=== PATIENT | male | born 1945 | race Hispanic/Latino ===

== ENCOUNTER 2018-02-27 10:18 | Emergency (ER) | payer MEDICARE, OTHER ==
[2018-02-27 10:28] VITALS: BMI 21.1
--- NOTE | 2018-02-27 12:06 | RAD ---
Date of service: 02/27/2018 HISTORY: AMS COMPARISON: No prior FINDINGS: LUNGS: Hyperinflated lungs. No active pulmonary disease. PLEURA: No significant pleural effusion identified, no pneumothorax apparent. CARDIOVASCULAR: Atherosclerotic aortic calcifications. Cardiomediastinal silhouette within normal limits. OSSEOUS STRUCTURES: Degenerative changes. VISUALIZED UPPER ABDOMEN: Normal. OTHER FINDINGS: None. IMPRESSION: No active disease.
[2018-02-27 12:07] LABS: BASO # 0.02 K/mm3 (0.0-2.0); BASO % 0.3 % (0.0-3.0); EOS # 0.1 (0.0-0.7); GRAN # 4.39 (1.4-6.5); GRAN % 63.5 % (50.0-68.0); HEMOGLOBIN 14.9 g/dL (14.0-18.0); LYMPH # 1.8 (1.2-3.4); LYMPH % 25.4 % (22.0-35.0); MEAN CELL VOLUME 84.7 fl (80.0-105.0); MEAN CORPUSCULAR HEMOGLOBIN 28.9 pg (25.0-35.0); MEAN CORPUSCULAR HGB CONC 34.2 g/dl (31.0-37.0); MONO # 0.7 (0.1-0.6); MONO % 9.8 % (1.0-6.0); RBC 5.15 10^6/uL (3.5-6.1); RED CELL DISTRIBUTION WIDTH 14.9 % (11.5-14.5); WHITE BLOOD COUNT 6.9 10^3/ul (4.5-11.0)
[2018-02-27 12:18] LABS: ALB/GLOB RATIO 1.3 (1.1-1.8); ALBUMIN 3.8 g/dL (3.0-4.8); ALT/SGPT 21 U/L (7-56); AST/SGOT 22 U/L (17-59); BLOOD UREA NITROGEN 13 mg/dL (7-21); CALCIUM 9.2 mg/dL (8.4-10.5); GFR NON-AFRICAN AMERICAN > 60
[2018-02-27 12:19] LABS: PH,URINE 6.5 (4.7-8.0); URINE BILIRUBIN NEGATIVE (NEGATIVE); URINE BLOOD NEGATIVE (NEGATIVE); URINE GLUCOSE (UA) NEGATIVE (NEGATIVE); URINE LEUKOCYTE ESTERASE NEGATIVE Leu/uL (NEGATIVE); URINE PROTEIN 100 mg/dL (<30 mg/dL); URINE UROBILINOGEN 0.2 E.U./dL (<1 E.U./dL)
[2018-02-27 12:23] LABS: URINE APPEARANCE CLEAR (CLEAR); URINE COLOR YELLOW (YELLOW)
[2018-02-27 12:26] LABS: URINE RBC 0 - 2 /hpf (0-2); URINE WBC 0 - 2 /hpf (0-6)
[2018-02-27 12:27] LABS: URINE BACTERIA MOD (NEG); URINE COARSE GRANULAR CAST TRACE /hpf (0-2); URINE EPITHELIAL CELLS 0 - 2 /hpf (0-5)
[2018-02-27 12:30] LABS: TROPONIN I < 0.01 ng/mL
[2018-02-27 12:35] LABS: FREE T4 0.98 ng/dL (0.78-2.19)
[2018-02-27 14:12] LABS: ACETAMINOPHEN < 10.0 ug/ml (10.0-20.0); SALICYLATE < 1 mg/dL (2.0-20.0)
--- NOTE | 2018-02-27 14:47 | ED PDOC ---
Arrival/HPI <Soto Swann - Last Filed: 02/27/18 17:02> - History of Present Illness Narrative History of Present Illness (Text): 02/27/18 14:37 Pt is a 72 yo M with pmhx of anxiety, depression and glaucoma who presents due to increased anxiety and weakness. Pt states that he had a scheduled appointment at the [facility], but when he arrived he was told the appointment had been cancelled and he could not see the dr. The pt then stopped taking all of his medications. He states that for the past week his anxiety has been continuing to grow. He states that this morning his anxiety grew to such levels that he was not able to manage it anymore and had a panic attack in which he began to hyperventilate and then feel very weak. He then informed his son to call the ambulance because he didnt feel right and felt very weak. He states that over the past week he has also felt increasingly bloated, and hasnt had a bowel movement in 5-6 days. Pt admits to fatigue, SOB, chest pain, abdominal pain, nausea, focal weakness, anxiety, and depression. He denies vision changes, photophobia, cough, palpitations, edema, calf pain, vomiting, dysuria, frequency, hematuria, back pain, dizziness, facial droop, speech changes. Pt also denies SI/HI at this time. PMHx: Anxiety, depression, glaucoma PSHx: polyp removal more than 10 yrs ago Meds: Nefazodone 200mg Qhs, Clonezepam 1mg QHS All: PCN - Hives Social: 1/2ppd smoker, denies etoh or illicit drug use Fam Hx: Denies 02/27/18 15:46 <Ted Bajwa - Last Filed: 02/27/18 19:05> - General Chief Complaint: GI Problem Time Seen by Provider: 02/27/18 10:29 Past Medical History - Infectious Disease Hx of Infectious Diseases: None - HEENT Hx Glaucoma: Yes - Psychiatric Hx Anxiety: Yes Hx Depression: Yes Hx Substance Use: No <Ted Bajwa - Last Filed: 02/27/18 19:05> Family/Social History Family/Social History: No Known Family HX Smoking Status: Light Smoker < 10 Cigarettes Daily Hx Alcohol Use: No Hx Substance Use: No <Francisco J Bajwamad - Last Filed: 02/27/18 19:05> Allergies/Home Meds <BosompemSoto - Last Filed: 02/27/18 17:02> <GarettFrancisco J tonyJean - Last Filed: 02/27/18 19:05> Allergies/Adverse Reactions: Allergies Penicillins Allergy (Verified 02/27/18 10:56) URTICARIA Review of Systems - Physician Review All systems were reviewed & negative as marked: Yes - Review of Systems Constitutional: Fatigue Eyes: absent: Vision Changes, Photophobia Respiratory: SOB. absent: Cough Cardiovascular: Chest Pain. absent: Palpitations, Edema, Calf Pain Gastrointestinal: Abdominal Pain, Nausea. absent: Vomiting Genitourinary Male: absent: Dysuria, Frequency, Hematuria Musculoskeletal: absent: Back Pain Neurological: Focal Weakness. absent: Dizziness, Speech Changes, Facial Droop Psychiatric: Anxiety, Depression. absent: Suicidal Ideation <Usman Bajwad - Last Filed: 02/27/18 19:05> Physical Exam Vital Signs Temp Pulse Resp BP Pulse Ox 02/27/18 15:08 98 F 70 19 149/83 95 02/27/18 10:28 97.6 F 64 18 149/78 98 <Bosompem,Soto - Last Filed: 02/27/18 17:02> Vital Signs Temp Pulse Resp BP Pulse Ox 02/27/18 10:28 97.6 F 64 18 149/78 98 Temperature: Afebrile Blood Pressure: Normal Pulse: Regular Respiratory Rate: Normal Appearance: Positive for: Well-Appearing, Non-Toxic, Uncomfortable Pain Distress: Mild Mental Status: Positive for: Alert and Oriented X 3 - Systems Exam Head: Present: Atraumatic, Normocephalic Pupils: Present: PERRL Extroacular Muscles: Present: EOMI Respiratory/Chest: Present: Clear to Auscultation, Good Air Exchange. No: Respiratory Distress, Accessory Muscle Use, Wheezes, Rales, Rhonchi Cardiovascular: Present: Normal S1, S2, Irregular Rhythm. No: Rub, Gallop Abdomen: Present: Normal Bowel Sounds. No: Tenderness, Distention, Peritoneal Signs Lower Extremity: Present: Edema Neurological: Present: GCS=15, CN II-XII Intact, Speech Normal Skin: Present: Warm, Dry, Normal Color. No: Rashes Psychiatric: Present: Alert, Oriented x 3, Normal Insight, Normal Concentration. No: Agitated, Suicidal Ideation, Homicidal Ideation, Delusional, Hallucinations <Usman Bajwad - Last Filed: 02/27/18 19:05> Medical Decision Making ED Course and Treatment: 02/27/18 15:17 Patient seen and evaluated by PES worker who states he has been cleared by psychiatric standpoint. Magnesium citrate ordered for patient. He is medically cleared. He is advised by psychiatry team to present his ED discharge paperwork to the mental health clinic so an earlier appointment may be obtained. Patient and family demonstrate understanding and will follow up. He is stable for discharge. - Lab Interpretations Lab Results: 02/27/18 11:56 02/27/18 11:56 Lab Results 02/27/18 11:58: Alcohol, Quantitative < 10 02/27/18 11:58: Salicylates < 1 L, Acetaminophen < 10.0 L 02/27/18 11:56: Free T4 0.98, TSH 3rd Generation 3.38 02/27/18 11:56: Sodium 139, Potassium 4.6, Chloride 108 H, Carbon Dioxide 24, Anion Gap 13, BUN 13, Creatinine 1.0, Est GFR ( Amer) > 60, Est GFR (Non- Af Amer) > 60, Random Glucose 107, Calcium 9.2, Phosphorus 3.0, Magnesium 2.4 H, Total Bilirubin 0.9, AST 22, ALT 21, Alkaline Phosphatase 89, Troponin I < 0.01, Total Protein 6.6, Albumin 3.8, Globulin 2.8, Albumin/Globulin Ratio 1.3 02/27/18 11:56: Urine Color Yellow, Urine Appearance Clear, Urine pH 6.5, Ur Specific Sprague 1.025, Urine Protein 100 H, Urine Glucose (UA) Negative, Urine Ketones Negative, Urine Blood Negative, Urine Nitrate Negative, Urine Bilirubin Negative, Urine Urobilinogen 0.2, Ur Leukocyte Esterase Negative, Urine RBC 0 - 2, Urine WBC 0 - 2, Ur Epithelial Cells 0 - 2, Urine Bacteria Mod, Coarse Granul ar Casts Trace H, Urine Other Fiber 02/27/18 11:56: WBC 6.9, RBC 5.15, Hgb 14.9, Hct 43.6, MCV 84.7, MCH 28.9, MCHC 34.2, RDW 14.9 H, Plt Count 186, MPV 12.0 H, Gran % 63.5, Lymph % (Auto) 25.4, Dane % (Auto) 9.8 H, Eos % (Auto) 1.0 L, Baso % (Auto) 0.3, Gran # 4.39, Lymph # (Auto) 1.8, Dane # (Auto) 0.7 H, Eos # (Auto) 0.1, Baso # (Auto) 0.02 - RAD Interpretation Radiology Orders: 02/27/18 10:56 CHEST PORTABLE [RAD] Stat - Medication Orders Current Medication Orders: Discontinued Medications Magnesium Citrate (Citrate Of Mag) 300 ml PO ONCE ONE Stop: 02/27/18 15:15 <Soto Swann - Last Filed: 02/27/18 17:02> ED Course and Treatment: 02/27/18 14:51 Pt is a 72 yo M with pmhx detailed above who presents to the ED for anxiety. - CBC - CMP - UA - CXR - Blood Cultures - TSH, Free T4 - EKG - mag, phos - UDS 02/27/18 14:52 - Lab Interpretations Lab Results: 02/27/18 11:56 02/27/18 11:56 Lab Results 02/27/18 11:58: Alcohol, Quantitative < 10 02/27/18 11:58: Salicylates < 1 L, Acetaminophen < 10.0 L 02/27/18 11:56: Free T4 0.98, TSH 3rd Generation 3.38 02/27/18 11:56: Sodium 139, Potassium 4.6, Chloride 108 H, Carbon Dioxide 24, Anion Gap 13, BUN 13, Creatinine 1.0, Est GFR ( Amer) > 60, Est GFR (Non- Af Amer) > 60, Random Glucose 107, Calcium 9.2, Phosphorus 3.0, Magnesium 2.4 H, Total Bilirubin 0.9, AST 22, ALT 21, Alkaline Phosphatase 89, Troponin I < 0.01, Total Protein 6.6, Albumin 3.8, Globulin 2.8, Albumin/Globulin Ratio 1.3 02/27/18 11:56: Urine Color Yellow, Urine Appearance Clear, Urine pH 6.5, Ur Specific Sprague 1.025, Urine Protein 100 H, Urine Glucose (UA) Negative, Urine Ketones Negative, Urine Blood Negative, Urine Nitrate Negative, Urine Bilirubin Negative, Urine Urobilinogen 0.2, Ur Leukocyte Esterase Negative, Urine RBC 0 - 2, Urine WBC 0 - 2, Ur Epithelial Cells 0 - 2, Urine Bacteria Mod, Coarse Granular Casts Trace H, Urine Other Fiber 02/27/18 11:56: WBC 6.9, RBC 5.15, Hgb 14.9, Hct 43.6, MCV 84.7, MCH 28.9, MCHC 34.2, RDW 14.9 H, Plt Count 186, MPV 12.0 H, Gran % 63.5, Lymph % (Auto) 25.4, Dane % (Auto) 9.8 H, Eos % (Auto) 1.0 L, Baso % (Auto) 0.3, Gran # 4.39, Lymph # (Auto) 1.8, Dane # (Auto) 0.7 H, Eos # (Auto) 0.1, Baso # (Auto) 0.02 - RAD Interpretation Radiology Orders: 02/27/18 10:56 CHEST PORTABLE [RAD] Stat <Ted Bajwa - Last Filed: 02/27/18 19:05> - PA / WEB ART DIRECTOR / Resident Statement MD/DO has reviewed & agrees with the documentation as recorded. MD/DO has examined the patient and agrees with the treatment plan. - Scribe Statement The provider has reviewed the documentation as recorded by the Scribe Patient Seen With Resident: In agreement with resident note. Patient was seen and evaluated with resident, came up with plan and treatment together. <Soto Swann - Last Filed: 02/27/18 17:02> Disposition/Present on Arrival - Present on Arrival Any Indicators Present on Arrival: No - Disposition Have Diagnosis and Disposition been Completed?: Yes Disposition Time: 15:21 Patient Plan: Discharge <Soto Swann - Last Filed: 02/27/18 17:02> - Present on Arrival Any Indicators Present on Arrival: No History of DVT/PE: No History of Uncontrolled Diabetes: No Urinary Catheter: No History of Decub. Ulcer: No History Surgical Site Infection Following: None <Ted Bajwa - Last Filed: 02/27/18 19:05> - Disposition Diagnosis: Anxiety, Constipation Disposition: HOME/ ROUTINE Condition: STABLE Discharge Instructions (ExitCare): Constipation, Adult (DC), Anxiety, Adult (DC) Prescriptions: Mineral Oil [Fleet Mineral Oil Enema 135 Ml] 133 ml RC ONCE 1 Days #1 nma Polyethylene Glycol 3350 [Miralax] 17 gm PO DAILY 1 Days #50 ml Sennosides [Senna Laxative] 8.6 mg PO DAILY 4 Days #4 tablet [place] [facility] [place] Follow up with primary Jenni Allen MD [Medical Doctor] - Follow up with primary Forms: [facility] [employer] (Malagasy)
[2018-02-27 15:10] VITALS: TEMP 98
[2018-02-27] MEDS ORDERED: Magnesium Citrate Oral SOL (300 ml) PO ONE (15:14)
[2018-02-27 15:50] LABS: BARBITURATES, UR NEGATIVE (NEGATIVE); BENZODIAZEPINES, UR NEGATIVE (NEGATIVE); OPIATES, UR NEGATIVE (NEGATIVE); PHENCYCLIDINE, UR NEGATIVE (NEGATIVE)
[2018-02-27 17:17] VITALS: BP 150/67; PULSE 77; RESP 18; O2SAT 99
--- NOTE | 2018-02-28 08:52 | CARD ---
APPROVED REPORT Date of service: 02/27/2018 EKG Measurement Heart [id number] <Conclusion> RSR Atrial bigeminy LVH by voltage
== END 2018-02-27 17:30 | disposition home or self-care (01) ==
LOC: ED 10:18
DX: F41.9 Anxiety disorder, unspecified (principal); K59.00 Constipation, unspecified; F32.9 Major depressive disorder, single episode, unspecified; H40.9 Unspecified glaucoma
CPT/HCPCS: 71045; 80053; 81001; 83735; 84100; 84439; 84443; 84484; 85025; 87040; 90791; 93005; 99284; G0480

== ENCOUNTER 2018-03-03 15:45 | Inpatient (IN) | payer MEDICARE, OTHER ==
[2018-03-03 16:47] VITALS: BMI 18.8
[2018-03-03] MEDS ORDERED: Sodium Chloride 0.9% 1,000 ML IV STA (17:56)
--- NOTE | 2018-03-03 18:11 | ED PDOC ---
Arrival/HPI - General Chief Complaint: Psychiatric Evaluation Time Seen by Provider: 03/03/18 16:27 - History of Present Illness Narrative History of Present Illness (Text): 03/03/18 18:07 72 m with hx anxiety, depression and constipation presents with chief complaint of feeling "blah" and depression. Patient reports that he was recently taken off clonazpam approx 15 days ago and has been feeling anxious. Patient reports multiple other physcial complaint including blurred/double vision without ac creek vision loss, no headache, no chest pain, no dyspnea, no current abdominal pain but recent bout of constipation, no dysuria, +anxiousness, +fatigue, +decreased sleep, +loss of appetite. As per the son, the patient evaluated the patient's room and the patient appears to live in poor condition where the room is covered in thick layer of "dust" and today, the patient wsa "bouncing off the jacobs". Patient denies any convulsions. PMHx: Anxiety PSHx: none SocHx: +current smoker, denies alcohol, denies nonsprescribed drugs FHx: denies Allergies: nkda 03/03/18 18:12 Past Medical History - Infectious Disease Hx of Infectious Diseases: None - Cardiac Hx Cardiac Disorders: No Hx Hypertension: No - Pulmonary Hx Tuberculosis: No - Neurological HX Cerebrovascular Accident: No Hx Seizures: No - HEENT Hx Glaucoma: Yes - Hematological/Oncological Hx Cancer: No - Genitourinary/Gynecological Hx Sexually Transmitted Diseases: No - Psychiatric Hx Anxiety: Yes Hx Depression: Yes Hx Substance Use: No Family/Social History Family/Social History: No Known Family HX Smoking Status: Light Smoker < 10 Cigarettes Daily Hx Alcohol Use: No Hx Substance Use: No Allergies/Home Meds Allergies/Adverse Reactions: Allergies Penicillins Allergy (Verified 03/03/18 23:41) URTICARIA Home Medications: Home Meds Medication Instructions Recorded Confirmed Nefazodone HCl 200 mg PO HS 03/03/18 03/03/18 clonazePAM [clonAZEPAM] 1 mg PO HS 03/03/18 03/03/18 Review of Systems - Physician Review All systems were reviewed & negative as marked: Yes - Review of Systems Neurological: absent: Headache Psychiatric: Depression Physical Exam - Physical Exam Narrative Physical Exam (Text): 03/03/18 18:13 Gen: VS reviewed, alert, well developed, well nourished, nontoxic, mild distress ENT: normal pharynx Eye: EOMI, PERRL Neck: no JVD, supple, no adenopathy CV: regular rate, regular rhythm, no rubs,no murmur, no gallops, S1, S2, pulses equal and strong Pulm: no distress, clear to auscultation, no wheeze, no rhonchi, breath sounds equal, no rales Abd: soft, nontender, no guarding, no rebound, no rigidity, normal bowel sounds Ext: no edema Skin: good color, no rash, no cyanosis Psych: responds appropriately to questions, normal affect Neuro: oriented x3, CN2-12 intact grossly, motor intact, sensation intact Vital Signs Temp Pulse Resp BP Pulse Ox 03/03/18 17:12 98.1 F 78 18 132/80 98 Medical Decision Making ED Course and Treatment: 03/03/18 18:13 patient presents with anxiety and depression after recently stopping clonazepam. there appears to be a disconnect between the patients prescribing physician and why the patient could not get refill of medication-son reports that the doctor refused to refill unless seeing the patient in person. 03/03/18 19:08 ekg discussed and personally reviewed by dr. weiss, cardiology environmental technician, states that the ekg is benign and not consistent with a serioud arrythmia-ekg presumed to be wenckeback 03/03/18 19:58 patient seen by PES and has been accepted for admission under service of dr. aguero with drug withdrawal 03/03/18 22:10 patient is medically stable for psychiatric admission. Ct result discussed with dr. aguero and based on the patient's current presentation it is understood that the findings on CT are most likely chronic. Patient will be consulted by neurology for further evaluation. At this time the patient does not exhibit acute neuro deficits. - RAD Interpretation Narrative RAD Interpretations (Text): 03/03/18 19:59 cxr my read: no focal infiltrate, no ptx, no cardiomegaly Fuel System Maintenance Worker: ED Physician - EKG Interpretation EKG Interpretation (Text): 03/03/18 19:18 1701 ekg my read: sinus rhythm at 67 bpm, frequent atrial ectopy, ?block Interpreted by ED Physician: Yes - Medication Orders Current Medication Orders: Sodium Chloride (Sodium Chloride 0.9%) 1,000 mls @ 999 mls/hr IV .Q1H1M STA Stop: 03/03/18 18:56 Disposition/Present on Arrival - Present on Arrival Any Indicators Present on Arrival: No History of DVT/PE: No History of Uncontrolled Diabetes: No Urinary Catheter: No History of Decub. Ulcer: No History Surgical Site Infection Following: None - Disposition Have Diagnosis and Disposition been Completed?: Yes Diagnosis: Drug withdrawal Disposition: HOSPITALIZED Disposition Time: 21:33 Patient Plan: Admission Patient Problems: Current Active Problems Problem Status Onset Anxiety disorder, unspecified Acute Drug withdrawal Acute Mood disorder Acute Condition: STABLE
[2018-03-03 18:17] LABS: BASO # 0.01 K/mm3 (0.0-2.0); BASO % 0.1 % (0.0-3.0); EOS # 0.1 (0.0-0.7); GRAN # 5.67 (1.4-6.5); GRAN % 61.5 % (50.0-68.0); HEMOGLOBIN 15.8 g/dL (14.0-18.0); LYMPH # 2.3 (1.2-3.4); LYMPH % 24.9 % (22.0-35.0); MEAN CORPUSCULAR HEMOGLOBIN 29.6 pg (25.0-35.0); MEAN CORPUSCULAR HGB CONC 34.8 g/dl (31.0-37.0); MEAN PLATELET VOLUME 12.7 fl (7.0-11.0); MONO # 1.2 (0.1-0.6); MONO % 12.5 % (1.0-6.0); RBC 5.34 10^6/uL (3.5-6.1); RED CELL DISTRIBUTION WIDTH 14.9 % (11.5-14.5); WHITE BLOOD COUNT 9.2 10^3/ul (4.5-11.0)
[2018-03-03 18:29] LABS: ALB/GLOB RATIO 1.4 (1.1-1.8); ALT/SGPT 21 U/L (7-56); AST/SGOT 38 U/L (17-59); BLOOD UREA NITROGEN 22 mg/dL (7-21); CALCIUM 9.2 mg/dL (8.4-10.5); GFR NON-AFRICAN AMERICAN 54
[2018-03-03 20:10] LABS: URINE BILIRUBIN SMALL (NEGATIVE); URINE BLOOD NEGATIVE (NEGATIVE); URINE GLUCOSE (UA) NEGATIVE (NEGATIVE); URINE LEUKOCYTE ESTERASE NEGATIVE Leu/uL (NEGATIVE); URINE PROTEIN NEGATIVE mg/dL (<30 mg/dL); URINE UROBILINOGEN 0.2 E.U./dL (<1 E.U./dL)
[2018-03-03 20:11] LABS: URINE APPEARANCE CLEAR (CLEAR); URINE COLOR LIGHT YELLOW (YELLOW)
[2018-03-03 20:34] LABS: BARBITURATES, UR NEGATIVE (NEGATIVE); BENZODIAZEPINES, UR NEGATIVE (NEGATIVE); OPIATES, UR NEGATIVE (NEGATIVE); PHENCYCLIDINE, UR NEGATIVE (NEGATIVE)
--- NOTE | 2018-03-03 21:11 | CARD ---
APPROVED REPORT Date of service: 03/03/2018 EKG Measurement Heart [id number] <Conclusion> Sinus rhythm with frequent premature atrial complexes Abnormal ECG
[2018-03-03] MEDS ORDERED: Alum-Mag Hydrox-Simethicone Susp (30 mL) PO PRN (21:54)
[2018-03-03 21:55] VITALS: O2SAT 95
--- NOTE | 2018-03-03 23:49 | PCM.BM ---
<Bing Roman - Last Filed: 03/03/18 23:46> Treatment Plan Problems - Problems identified on initial assessmt SEVERE ANXIETY Date Initiated: 03/03/18 Time Initiated: 23:00 Assessment reference: NA Status: Active Priority: 1 INEFFECTIVWE COPING Date Initiated: 03/03/18 Time Initiated: 23:00 Assessment reference: NA Status: Active Priority: 2 MEDICATION NON ADHERENCE Date Initiated: 03/03/18 Time Initiated: 23:00 Assessment reference: NA Status: Active Priority: 3 Treatment assets and liabiliti Patient Assests: cooperative, self-reliant, ADL independent, good support system, negotiates basic needs, good past tx response, cognitively intact Patient Liabilities: financial problems, relationship conflicts, medical problems, visual impairment - Milieu Protocol Maintain good personal hygiene: daily Encourage regular showers, every shift Remind patient to perform daily oral care, every shift Assist patient to perform ADL's Maintain personal safety: every shift Educate patient to report safety concerns to staff, every shift Monitor environment for contraband/sharps Medication safety: Monitor for expected outcome, potential side effects: every shift, Assess barriers to learning: every shift, Assess readiness for medication education: every shift Family Contact Family involvement: Family/SO is involved Family contact: Patient agrees to contact Discharge/Continuing Care - Education Needs Education Needs: Patient Medication, Patient Diagnosis/Disease Process, Patient Coping Skills, Patient Anger Management skills, Patient Activities of Daily Living, Patient Health Practices/Safety - Discharge Discharge Criteria: Tolerates medication w/o severe side effects, Free of agitation, Normal sleep pattern, Ability to care for self <Jayne Nelson A - Last Filed: 03/04/18 15:43> - Diagnosis (1) Mood disorder Status: Acute Interventions: 03/04/18 15:43 Psychoeducation Psychopharmacology/adjustment of medications as needed/ monitoring possible side effects Evaluate pt on daily basis Compliance with medications and follow up appointments Suicide and homicide risk assessment and prevention Relapse prevention Reduction of symptoms Improve functional status Family involvement As outpatient: cognitive behavioral therapy (2) Anxiety disorder, unspecified Status: Acute Interventions: 03/04/18 15:43 Psychoeducation Psychopharmacology/adjustment of medications as needed/ monitoring possible side effects Evaluate pt on daily basis Discussion of importance of being compliant with medications and follow up appointments Suicide and homicide risk assessment and prevention, coping strategies, safety plan Reduction of symptoms Relaxation techniques and breathing exercises Improve functional status Family involvement Cognitive behavioral therapy as outpatient <Jenni Moore Y - Last Filed: 03/04/18 16:46> Family Contact - Outside Agency [facility] Care involvment: Not involved Agency contact name: [facility] Agency contact number: [phone]
[2018-03-04 07:59] LABS: GLUCOSE,FASTING 76 mg/dL (65-110); HDL CHOLESTEROL 37 mg/dL (29-60)
[2018-03-04 08:10] LABS: LDL CHOLESTEROL 89 mg/dL (0-129)
--- NOTE | 2018-03-04 08:11 | CP.PCM.CON ---
<JohnnyRajwinder - Last Filed: 03/04/18 11:24> History of Present Illness - History of Present Illness History of Present Illness: Medicine Consult Note for Jennifer Caldwell PGY3 This is a 72yo male with past medical history of anxiety/depression and glaucoma who came to ED for depression. He was taking Clonazapam at home which was recently discontinued. Since then his mood has not improved. Patient otherwise reports feeling well. He denies chest pain, shortness of breath, naus ea/vomiting/diarrhea, vision changes, palpitations, visual/auditory hallucinations, suicidal or homicidal ideations. He states his PMD is Dr. Julien, but he has not seen her in "a while". Past medical history: anxiety/depression, glaucoma Past surgical history: Denies Home meds: Reviewed as per MAR Allergies: PCN- rash (as as child) Social history: smokes 1/2 ppd x >30yrs, denies EtOH or drug use. Lives with son and roommate Family history: Mom ( age 54) from cardiac arrest from [place] - Father ( at young age) from tuberculosis PMD: Dr. Julien Review of Systems - Review of Systems All systems: reviewed and no additional remarkable complaints except Review of Systems: 12 point ROS reviewed as per HPI and is otherwise negative Past Patient History - Infectious Disease Hx of Infectious Diseases: None - Past Social History Smoking Status: Light Smoker < 10 Cigarettes Daily - CARDIAC Hx Cardiac Disorders: No Hx Hypertension: No - PULMONARY Hx Respiratory Disorders: No Hx Tuberculosis: No - NEUROLOGICAL HX Cerebrovascular Accident: No Hx Seizures: No - HEENT Hx HEENT Problems: No Hx Glaucoma: Yes - RENAL Hx Chronic Kidney Disease: No - ENDOCRINE/METABOLIC Hx Endocrine Disorders: No - HEMATOLOGICAL/ONCOLOGICAL Hx Blood Disorders: No Hx Cancer: No - INTEGUMENTARY Hx Dermatological Problems: No - MUSCULOSKELETAL/RHEUMATOLOGICAL Hx Musculoskeletal Disorders: No - GASTROINTESTINAL Hx Gastrointestinal Disorders: No - GENITOURINARY/GYNECOLOGICAL Hx Genitourinary Disorders: No Hx Sexually Transmitted Disorders: No - PSYCHIATRIC Hx Substance Use: No - SURGICAL HISTORY Hx Surgeries: No - ANESTHESIA Hx Anesthesia: No Meds Allergies/Adverse Reactions: Allergies Allergy/AdvReac Type Severity Reaction Status Date / Time Penicillins Allergy URTICARIA Verified 03/03/18 23:41 - Medications Medications: Current Medications Acetaminophen (Tylenol 325mg Tab) 650 mg PO Q4H PRN PRN Reason: Pain, Mild (1-3) Al Hydrox/Mg Hydrox/Simethicone (Maalox Plus 30 Ml) 30 ml PO DAILY PRN PRN Reason: Upset Stomach Clonazepam (Klonopin) 0.5 mg PO Q8H PRN; Protocol PRN Reason: Anxiety Last Admin: 03/04/18 02:38 Dose: 0.5 mg Lorazepam (Ativan) 2 mg PO Q6H PRN; Protocol PRN Reason: Agitation Last Admin: 03/03/18 22:41 Dose: 2 mg Lorazepam (Ativan) 2 mg IM Q6H PRN; Protocol PRN Reason: Agitation Trazodone HCl (Desyrel) 50 mg PO HS PRN PRN Reason: Sleep Last Admin: 03/03/18 22:41 Dose: 50 mg Ziprasidone (Geodon Cap) 20 mg PO Q6H PRN; Protocol PRN Reason: Agitation Ziprasidone (Geodon Inj) 20 mg IM Q6H PRN; Protocol PRN Reason: Agitation Physical Exam - Constitutional Appears: No Acute Distress - Head Exam Head Exam: ATRAUMATIC, NORMAL INSPECTION, NORMOCEPHALIC - Eye Exam Eye Exam: Normal appearance, PERRL Pupil Exam: NORMAL ACCOMODATION, PERRL - ENT Exam ENT Exam: Mucous Membranes Moist - Respiratory Exam Respiratory Exam: Clear to Auscultation Bilateral, NORMAL BREATHING PATTERN. absent: Rales, Rhonchi, Wheezes - Cardiovascular Exam Cardiovascular Exam: REGULAR RHYTHM, +S1, +S2. absent: Gallop, Rubs, Systolic Murmur - GI/Abdominal Exam GI & Abdominal Exam: Normal Bowel Sounds, Soft. absent: Rebound, Rigid, Tenderness - Extremities Exam Extremities exam: Positive for: normal capillary refill, normal inspection. Negative for: calf tenderness, pedal edema - Neurological Exam Neurological exam: Alert, CN II-XII Intact, Oriented x3 - Psychiatric Exam Psychiatric exam: Normal Affect, Normal Mood - Skin Skin Exam: Dry, Intact, Warm Results - Vital Signs Recent Vital Signs: Last Vital Signs Temp 98.2 F 03/04/18 07:19 Pulse 64 03/04/18 07:19 Resp 20 03/04/18 07:19 BP 115/47 L 03/04/18 07:19 Pulse Ox 95 03/03/18 21:54 - Labs Result Diagrams: 03/03/18 18:06 03/03/18 18:00 Labs: Laboratory Results - last 24 hr 03/03/18 03/03/18 03/03/18 17:55 18:00 18:06 WBC 9.2 D RBC 5.34 Hgb 15.8 Hct 45.4 MCV 85.0 MCH 29.6 MCHC 34.8 RDW 14.9 H Plt Count 203 MPV 12.7 H Gran % 61.5 Lymph % (Auto) 24.9 [place] % (Auto) 12.5 H Eos % (Auto) 1.0 L Baso % (Auto) 0.1 Gran # 5.67 Lymph # (Auto) 2.3 [place] # (Auto) 1.2 H Eos # (Auto) 0.1 Baso # (Auto) 0.01 Sodium 138 Potassium 5.0 Chloride 102 Carbon Dioxide 25 Anion Gap 16 BUN 22 H Creatinine 1.3 Est GFR ( Amer) > 60 Est GFR (Non-Af Amer) 54 Random Glucose 86 Fasting Glucose Calcium 9.2 Magnesium 2.4 H Total Bilirubin 0.7 AST 38 ALT 21 Alkaline Phosphatase 77 Total Protein 6.9 Albumin 4.0 Globulin 2.9 Albumin/Globulin Ratio 1.4 Triglycerides Cholesterol LDL Cholesterol Direct HDL Cholesterol TSH 3rd Generation 3.63 Urine Color Urine Appearance Urine pH Ur Specific [place] Urine Protein Urine Glucose (UA) Urine Ketones Urine Blood Urine Nitrate Urine Bilirubin Urine Urobilinogen Ur Leukocyte Esterase Urine Opiates Screen Urine Methadone Screen Ur Barbiturates Screen Ur Phencyclidine Scrn Ur Amphetamines Screen U Benzodiazepines Scrn U Oth Cocaine Metabols U Cannabinoids Screen Alcohol, Quantitative < 10 03/03/18 03/03/18 03/04/18 19:52 19:52 07:15 WBC RBC Hgb Hct MCV MCH MCHC RDW Plt Count MPV Gran % Lymph % (Auto) [place] % (Auto) Eos % (Auto) Baso % (Auto) Gran # Lymph # (Auto) [place] # (Auto) Eos # (Auto) Baso # (Auto) Sodium Potassium Chloride Carbon Dioxide Anion Gap BUN Creatinine Est GFR ( Amer) Est GFR (Non-Af Amer) Random Glucose Fasting Glucose 76 Calcium Magnesium Total Bilirubin AST ALT Alkaline Phosphatase Total Protein Albumin Globulin Albumin/Globulin Ratio Triglycerides 75 Cholesterol 151 LDL Cholesterol Direct 89 HDL Cholesterol 37 TSH 3rd Generation Urine Color Light yellow Urine Appearance Clear Urine pH 6.0 Ur Specific [place] 1.015 Urine Protein Negative Urine Glucose (UA) Negative Urine Ketones 15 H Urine Blood Negative Urine Nitrate Negative Urine Bilirubin Small H Urine Urobilinogen 0.2 Ur Leukocyte Esterase Negative Urine Opiates Screen Negative Urine Methadone Screen Negative Ur Barbiturates Screen Negative Ur Phencyclidine Scrn Negative Ur Amphetamines Screen Negative U Benzodiazepines Scrn Negative U Oth Cocaine Metabols Negative U Cannabinoids Screen Negative Alcohol, Quantitative Assessment & Plan - Assessment and Plan (Free Text) Assessment: 1. Glaucoma 2. Anxiety 3. Depression Plan: Labs reviewed. Patient is hemodynamically stable. As per patient, son will bring in glaucoma eye drops to hospital. We will continue eye drops. Continue Trazodone, Ativan, Klonopin and Geodon as per psych. Recommend patient to follow up with PMD, Dr. Julien for check up upon discharge. Thank you for this consultation. Will sign off at this time. Please contact if need further recommendations. Case seen, discussed and reviewed with Dr. Corinne Turner PGY3 - Date & Time Date: 03/04/18 Time: 11:33 <Tal Sun S - Last Filed: 03/10/18 20:25> Meds - Medications Medications: Current Medications Acetaminophen (Tylenol 325mg Tab) 650 mg PO Q4H PRN PRN Reason: Pain, Mild (1-3) Al Hydrox/Mg Hydrox/Simethicone (Maalox Plus 30 Ml) 30 ml PO DAILY PRN PRN Reason: Upset Stomach Clonazepam (Klonopin) 0.5 mg PO Q8H [facility]; Protocol Last Admin: 03/10/18 12:41 Dose: 0.5 mg Docusate Sodium (Colace) 100 mg PO BID [facility] Last Admin: 03/10/18 16:47 Dose: 100 mg Home Med (Home Med) 1 unit OU Q12H RAMÍREZ Last Admin: 03/10/18 09:58 Dose: 1 unit Lactulose (Enulose) 20 gm PO HS RAMÍREZ Lorazepam (Ativan) 2 mg PO Q6H PRN; Protocol PRN Reason: Agitation Last Admin: 03/08/18 09:43 Dose: 2 mg Lorazepam (Ativan) 2 mg IM Q6H PRN; Protocol PRN Reason: Agitation Trazodone HCl (Desyrel) 100 mg PO HS RAMÍREZ Last Admin: 03/09/18 22:19 Dose: 100 mg Zaleplon (Sonata) 5 mg PO HS PRN PRN Reason: Insomnia Ziprasidone (Geodon Cap) 20 mg PO Q6H PRN; Protocol PRN Reason: Agitation Ziprasidone (Geodon Inj) 20 mg IM Q6H PRN; Protocol PRN Reason: Agitation Results - Vital Signs Recent Vital Signs: Last Vital Signs Temp 98.5 F 03/10/18 07:00 Pulse 91 H 03/10/18 15:00 Resp 18 03/10/18 07:00 BP 143/80 03/10/18 15:00 Pulse Ox 95 03/03/18 21:54 - Labs Result Diagrams: 03/03/18 18:06 03/03/18 18:00 Assessment & Plan - Assessment and Plan (Free Text) Plan: Pt seen and examined by me. This is a late entry.I have reviewed the note by the medical social worker. The case was discussed and reviewed with the resident. I reviewed the medications and labs. Pt with Glaucoma. Will need to continue with eye drops. Pt is on Ativan and Klonoin by psych. No active medical issues. Will sign off. Reconsult if needed.
--- NOTE | 2018-03-04 08:50 | RAD ---
Date of service: 03/03/2018 HISTORY: pneumonia COMPARISON: 02/27/2018. FINDINGS: LUNGS: No active pulmonary disease. PLEURA: No significant pleural effusion identified, no pneumothorax apparent. CARDIOVASCULAR: No radiographic findings to suggest acute or significant cardiovascular disease. OSSEOUS STRUCTURES: No significant abnormalities. VISUALIZED UPPER ABDOMEN: Normal. OTHER FINDINGS: None. IMPRESSION: No active disease. Grow change
--- NOTE | 2018-03-04 09:13 | CT ---
Date of service: 03/03/2018 PROCEDURE: CT HEAD WITHOUT CONTRAST. HISTORY: visual disurbance COMPARISON: None available. TECHNIQUE: Axial computed tomography images were obtained through the head/brain without intravenous contrast. Radiation dose: Total exam DLP = 1036 mGy-cm. This CT exam was performed using one or more of the following dose reduction techniques: Automated exposure control, adjustment of the mA and/or kV according to patient size, and/or use of iterative reconstruction technique. FINDINGS: HEMORRHAGE: No intracranial hemorrhage. BRAIN: No mass effect or edema. Chronic appearing lacunar infarcts are seen in the basal ganglia bilaterally. VENTRICLES: Unremarkable. No hydrocephalus. CALVARIUM: Unremarkable. PARANASAL SINUSES: Unremarkable as visualized. No significant inflammatory changes. MASTOID AIR CELLS: Unremarkable as visualized. No inflammatory changes. OTHER FINDINGS: The report concurs with the preliminary report IMPRESSION: No acute findings
--- NOTE | 2018-03-04 15:42 | PCM.PSYCH ---
Initial Psychiatric Evaluation - Initial Psychiatric Evaluation Type of Admission: Voluntary Legal Status: Capacity (patient has capacity to sign consent for treatment) Chief Complaint (in patient's own words): "I was not feeling well, I was not sleeping for 1 week, I was not eating, I thought that is better to , I was praying God to take me" Patient's Reaction to Hospitalization: patient was admitted to the psychiatric inpatient unit for evaluation of depressive symptoms, inability to function, uncontrolled anxiety, passive wish to be . History of Present Illness and Precipitating Events: shortly patient is 72year old male with reported hx anxiety, depression possible PTSD, [facility], patient denied history of previous psychiatric admissions, denied history of suicidal attempts, patient was brought in by his son for evaluation of worsening of depression, uncontrolled anxiety, patient missed 2 appointments With his psychiatrist, as a result patient karly short on benzodiazepines as well as Nefazodone, pt was feeling depressed, hopeless, helpless, was not able to sleep, lost appetite, had passive wish to be . pt was seen at the treatment team meeting, patient presented with marginal personal hygiene, acceptable ADLs. Patient reported that he had traumatic event at his job and he suffered from PTSD for what patient was seen by Dr. Gurinder gonsales need years ago, patient currently [facility], patient reported that he missed his 2 appointments with his psychiatrist and when he came for medicat ion refill patient was rejected and next appointment was scheduled sometime in April, patient said "I was feeling very angry I stopped taking medications, she had only 4 left", as a result for past week patient was not able to function, reported that he lost weight,not able to stay still, had shakiness of his upper extremities, was not able to sleep, patient reported that he had suicidal wish but denied any plan or intent to kill himself. patient denied hearing voices, denied seeing things, denied paranoid ideations. Patient reported mild improvement with his symptoms after Klonopin and trazodone was initiated. Collaterals were obtained from patient's son in the emergency room:"As per the son, the patient evaluated the patient's room and the patient appears to live in poor condition where the room is covered in thick layer of "dust" and today, the patient wsa "bouncing off the jacobs". Patient denies any convulsions." SocHx: +current smoker, denies alcohol, denies nonsprescribed drugs, nicotine patch offered, but pt refused. FHx: denies Allergies: nkda Patient reports he started seeing a psychiatrist about 20 years ago after he had an industrial accident in which he was almost crushed by a palate while he was working, resulting in patient having PTSD symptoms. PT currently denies having any flashbacks. PT reports using [facility]. medication list: Klonopin 1 mg at the nighttime #7 patient filled in February 12 Serzone 200 mg at the nighttime #7 filled in February 12 MiraLAX viktor medical history: atient reported being healthy, but patient has history of constipation. as per nursing report patient initially was angry, mildly agitated, but calm do wn overnight. 03/03/18 18:06 03/03/18 18:00 Lab Results 03/04/18 07:15: Fasting Glucose 76, Triglycerides 75, Cholesterol 151, LDL Cholesterol Direct 89, HDL Cholesterol 37 03/03/18 19:52: Urine Color Light yellow, Urine Appearance Clear, Urine pH 6.0, Ur Specific [place] 1.015, Urine Protein Negative, Urine Glucose (UA) Negative, Urine Ketones 15 H, Urine Blood Negative, Urine Nitrate Negative, Urine Bilirubin Small H, Urine Urobilinogen 0.2, Ur Leukocyte Esterase Negative 03/03/18 19:52: Urine Opiates Screen Negative, Urine Methadone Screen Negative, Ur Barbiturates Screen Negative, Ur Phencyclidine Scrn Negative, Ur Amphetamines Screen Negative, U Benzodiazepines Scrn Negative, U Oth Cocaine Metabols Negative, U Cannabinoids Screen Negative 03/03/18 18:06: WBC 9.2 D, RBC 5.34, Hgb 15.8, Hct 45.4, MCV 85.0, MCH 29.6, MCHC 34.8, RDW 14.9 H, Plt Count 203, MPV 12.7 H, Gran % 61.5, Lymph % (Auto) 24.9, [place] % (Auto) 12.5 H, Eos % (Auto) 1.0 L, Baso % (Auto) 0.1, Gran # 5.67, Lymph # (Auto) 2.3, [place] # (Auto) 1.2 H, Eos # (Auto) 0.1, Baso # (Auto) 0.01 03/03/18 18:00: Sodium 138, Potassium 5.0, Chloride 102, Carbon Dioxide 25, Anion Gap 16, BUN 22 H, Creatinine 1.3, Est GFR ( Amer) > 60, Est GFR (Non-Af Amer) 54, Random Glucose 86, Calcium 9.2, Magnesium 2.4 H, Total Bilirubin 0.7, AST 38, ALT 21, Alkaline Phosphatase 77, Total Protein 6.9, Albumin 4.0, Globulin 2.9, Albumin/Globulin Ratio 1.4 03/03/18 17:55: TSH 3rd Generation 3.63, Alcohol, Quantitative < 10 Vital Signs Temp Pulse Resp BP Pulse Ox 03/04/18 07:19 98.2 F 64 20 115/47 L 03/03/18 22:57 97.5 F L 56 L 20 131/72 03/03/18 21:54 98.7 F 74 16 110/62 95 03/03/18 17:12 98.1 F 78 18 132/80 98 in ED: ekg changes as per , discussed with , cardiology collection agent, states that the ekg is benign and not consistent with a serioud arrythmia-ekg presumed to be wenckeback As per ED attending , recommended Neurology consult for findings on CT which most likely chronic. Current Medications: Active Medications Generic Name Dose Route Start Last Admin Trade Name Freq PRN Reason Stop Dose Admin Acetaminophen 650 mg 03/03/18 21:54 Tylenol 325mg Tab PO Q4H PRN Pain, Mild (1-3) Al Hydrox/Mg Hydrox/Simethicone 30 ml 03/03/18 21:54 Maalox Plus 30 Ml PO DAILY PRN Upset Stomach Clonazepam 0.5 mg 03/03/18 21:53 03/04/18 02:38 Klonopin PO 0.5 mg Q8H PRN Administration Anxiety Protocol Lorazepam 2 mg 03/03/18 21:54 03/03/18 22:41 Ativan PO 2 mg Q6H PRN Administration Agitation Protocol Lorazepam 2 mg 03/03/18 21:56 Ativan IM Q6H PRN Agitation Protocol Trazodone HCl 50 mg 03/03/18 21:53 03/03/18 22:41 Desyrel PO 50 mg HS PRN Administration Sleep Ziprasidone 20 mg 03/03/18 21:57 Geodon Cap PO Q6H PRN Agitation Protocol Ziprasidone 20 mg 03/03/18 21:59 Geodon Inj IM Q6H PRN Agitation Protocol Past Psychiatric History - Past Psychiatric History Previous Treatment History: Intensive Outpatient Prior Professional Help: outpatient treatment Prior Psychiatric Treatment: as per HPI At [facility] hospital: as per HPI Duration: as per HPI Nature of Treatment: as per HPI Explanation of prior treatment: as per HPI History of Abuse: as per HPI History of ETOH/Drug Use: as per HPI History of Family Illness: as per HPI Pertinent Medical Hx (Current Medical&Sleep Prob, Allergies): Allergies Allergy/AdvReac Type Severity Reaction Status Date / Time Penicillins Allergy URTICARIA Verified 03/03/18 23:41 Nefazodone HCl 200 mg PO HS 03/03/18 clonazePAM [clonAZEPAM] 1 mg PO HS 03/03/18 Review of Systems - Review of Systems Systems not reviewed;Unavailable: Acuity of Condition - EENT Eyes: As Per HPI Ears: As Per HPI Nose/Mouth/Throat: As Per HPI - Cardiovascular Cardiovascular: As Per HPI - Respiratory Respiratory: As Per HPI - Gastrointestinal Gastrointestinal: As Per HPI - Genitourinary Genitourinary: As Per HPI - Reproductive: Male Reproductive:Male: As Per HPI - Musculoskeletal Musculoskeletal: As Par HPI - Integumentary Integumentary: As Per HPI - Neurological Neurological: As Per HPI - Psychiatric Psychiatric: As Per HPI - Endocrine Endocrine: As Per HPI - Hematologic/Lymphatic Hematologic: As Per HPI Mental Status Examination - Personal Presentation Personal Presentation: Looks stated age - Affect Affect: Constricted, Flat - Motor Activity Motor Activity: Calm - Reliability in Providing Information Reliability in Providing Information: Fair - Speech Speech: Organized - Mood Mood: Depressed, Anxious - Formal Thought Process Formal Thought Process: No Impairment - Obsessions/Compulsions Obsessions: None Compulsions: None - Cognitive Functions Orientation: Person, Place, Situation, Time Sensorium: Alert Attention/Concentration: Attentive Estimate of Intelligence: Average Judgement: Intact, as evidence by: Insight regarding need for hospitalization - Risk Risk: Withdrawal, Self-mutilation, Diminished functioning - Strength & Assets Inventory Strength & Assets Inventory: Family support (good physical health, no substance abuse), Cooperative - Limitations Limitations: Other (seriousness of the symtoms) DSM 5 DX - DSM 5 DSM 5 Diagnosis: mood disorder nos r/o ptsd r/o withdrawals from the meds - Recommended/Plan of Treatment Treatment Recommendations and Plan of Treatment: Milieu/structure/supportive therapy Medical consult will be called neurology consultation was also called consultation for discharge plan and social issues Med management Klonopin was resumed 0.5 mg 3 times a day as needed for anxiety trazodone was discontinued Trazodone 50 mg at the nighttime for depression and insomnia Family involvement Follow up on labs Will monitor closely Pt was educated about risk/benefits and alternatives of medications, coping strategies (safety plan, suicide prevention), relapse prevention, importance of follow up with psychiatrist and therapist, stay away from drugs/alcohol/smoking Projected ELOS: 7days Prognosis: fair Discharge Plan and Discharge Criteria: Pt will be not depressed or manic, will be more hopeful, will be not psychotic or anxious, will be not having thoughts of harming self or others, will be tolerating medications well, will not have major side effects, will be able to function, will not pose threat to self or others. - Smoking Cessation Smoking Cessation Initiated: No Reason for not providing: pt refused
[2018-03-04] MEDS: TIMOLOL MALEATE OU SCH (21:45)
[2018-03-04] MEDS: DORZOLAMIDE HCL OU SCH (21:45)
[2018-03-05] MEDS: TIMOLOL MALEATE OU SCH ×2 (10:18→22:22)
[2018-03-05] MEDS: DORZOLAMIDE HCL OU SCH ×2 (10:18→22:22)
--- NOTE | 2018-03-05 16:11 | PCM.PYCHPN ---
Psychiatric Progress Note - Psychiatric Progress Note Patient seen today, length of contact: 30 minutes Patient Chief Complaint: "I feel little better, I'm not there yet" Problems Identified/Issues Discussed: Suicide/ homicide prevention, past psychiatric h/o, current psychiatric symptoms, medical problems, risk/benefits and alternatives of medications, medications compliance, coping strategies, substance abuse h/o, relapse prevention, importance of follow up with psychiatrist and therapist, discharge plan. Medical Problems: as per HPI Diagnostic Results: 03/03/18 18:06 03/03/18 18:00 Lab Results 03/04/18 07:15: Fasting Glucose 76, Triglycerides 75, Cholesterol 151, LDL Cholesterol Direct 89, HDL Cholesterol 37 03/04/18 07:00: RPR Nonreactive 03/03/18 19:52: Urine Color Light yellow, Urine Appearance Clear, Urine pH 6.0, Ur Specific [place] 1.015, Urine Protein Negative, Urine Glucose (UA) Negative, Urine Ketones 15 H, Urine Blood Negative, Urine Nitrate Negative, Urine Bilirubin Small H, Urine Urobilinogen 0.2, Ur Leukocyte Esterase Negative 03/03/18 19:52: Urine Opiates Screen Negative, Urine Methadone Screen Negative, Ur Barbiturates Screen Negative, Ur Phencyclidine Scrn Negative, Ur Amphetamines Screen Negative, U Benzodiazepines Scrn Negative, U Oth Cocaine Metabols Negative, U Cannabinoids Screen Negative 03/03/18 18:06: WBC 9.2 D, RBC 5.34, Hgb 15.8, Hct 45.4, MCV 85.0, MCH 29.6, MCHC 34.8, RDW 14.9 H, Plt Count 203, MPV 12.7 H, Gran % 61.5, Lymph % (Auto) 24.9, [place] % (Auto) 12.5 H, Eos % (Auto) 1.0 L, Baso % (Auto) 0.1, Gran # 5.67, Lymph # (Auto) 2.3, [place] # (Auto) 1.2 H, Eos # (Auto) 0.1, Baso # (Auto) 0.01 03/03/18 18:00: Sodium 138, Potassium 5.0, Chloride 102, Carbon Dioxide 25, Anion Gap 16, BUN 22 H, Creatinine 1.3, Est GFR ( Amer) > 60, Est GFR (Non-Af Amer) 54, Random Glucose 86, Calcium 9.2, Magnesium 2.4 H, Total Bilirubin 0.7, AST 38, ALT 21, Alkaline Phosphatase 77, Total Protein 6.9, Albumin 4.0, Globulin 2.9, Albumin/Globulin Ratio 1.4 03/03/18 17:55: TSH 3rd Generation 3.63, Alcohol, Quantitative < 10 Vital Signs Temp Pulse Resp BP Pulse Ox 03/05/18 07:12 98.1 F 82 20 119/75 03/04/18 16:00 86 110/56 L 03/04/18 07:19 98.2 F 64 20 115/47 L 03/03/18 22:57 97.5 F L 56 L 20 131/72 03/03/18 21:54 98.7 F 74 16 110/62 95 03/03/18 17:12 98.1 F 78 18 132/80 98 DSM 5 Symptoms Update: shortly patient is 72year old male with reported hx anxiety, depression possible PTSD, currently is under care or [facility], patient denied history of previous psychiatric admissions, denied history of suicidal attempts, patient was brought in by his son for evaluation of worsening of depression, uncontrolled anxiety, patient missed 2 appointments With his psychiatrist, as a result patient karly short on benzodiazepines as well as Nefazodone, pt was feeling depressed, hopeless, helpless, was not able to sleep, lost appetite, had passive wish to be . pt was seen Nursing station, patient presented with marginal personal hygiene, acceptable ADLs. patient reported that he feels little better, but "not there yet", patient reported that he still feels anxious and depressed, reported some improvement with sleep. As per staff patient started attending groups, no agitation or aggression, med compliant. DSM 5 Diagnosis: mood disorder nos r/o ptsd r/o withdrawals from the meds Medication Change: Yes (trazodone increased to 75 mg at the nighttime) Medical Record Reviewed: Yes Consults ordered or reviewed: medical consult appreciated, please see notes for more detailed information Mental Status Examination - Cognitive Function Orientation: Person, Place, Situation, Time Memory: Intact Attention: Poor Concentration: Poor Association: WNL Fund of Knowledge: WNL - Mood Mood: Depressed, Anxious - Affect Affect: Constricted, Flat - Formal Thought Process Formal Thought Process: No Impairment - Suicidal Ideation Suicidal Ideation: No - Homicidal Ideation Homicidal Ideation: No Goal/Treatment Plan - Goal/Treatment Plan Need for Continued Stay: Remain at risks for inpatient hospitalization, Severe depression anxiety, Discharge may exacerbated symptoms, Severe functional impairment Progress Toward Problem(s) and Goals/Treatment Plan: Milieu/structure/supportive therapy Medical consult will be called neurology consultation was also called consultation for discharge plan and social issues Med management Klonopin 0.5 mg 3 times a day as needed for anxiety serzone was discontinued Trazodone 75 mg at the nighttime for depression and insomnia Family involvement Follow up on labs Will monitor closely Pt was educated about risk/benefits and alternatives of medications, coping strategies (safety plan, suicide prevention), relapse prevention, importance of follow up with psychiatrist and therapist, stay away from drugs/alcohol/smoking
--- NOTE | 2018-03-05 18:59 | CON ---
DATE: 03/05/2018 HISTORY OF PRESENT ILLNESS: A 72-year-old man with history of anxiety, depression, possible PTSD, currently under [facility], who came in for worsening depression, uncontrolled anxiety. Had a CAT scan of the head, which he was told to have some bilateral basal ganglia and lacunar infarcts. He is a daily smoker. Recommended to be on a daily aspirin of 81 mg and Lipitor 20 mg p.o. daily for stroke prevention. He has no focal neurological deficit at this time except for his affect of depression. PAST MEDICAL HISTORY: As above. REVIEW OF SYSTEMS: Fourteen-point review of systems is negative except as per the HPI. FAMILY HISTORY: Noncontributory. ALLERGIES: ALLERGIC TO PENICILLIN. SOCIAL HISTORY: He is a smoker daily, half a pack and has cut down to 6-7 cigarettes per day from 18. No illicit drug use. LABORATORY DATA: No new labs done today. PHYSICAL EXAMINATION: VITAL SIGNS: Temperature 98.1, pulse rate of 82, blood pressure 119/75, respiratory rate of 20. GENERAL: The patient is sitting up in bed, in no acute distress. HEENT: Atraumatic, normocephalic. PERRLA. Extraocular muscles intact. NECK: Supple. No JVD, no adenopathy noted. LUNGS: Clear to auscultation. No adventitious sounds. HEART: S1, S2. Normal rate and rhythm. No murmurs, rubs or gallops. ABDOMEN: Soft, nontender and nondistended. Bowel sounds are present. EXTREMITIES: No clubbing. No cyanosis. Peripheral pulses 2+ felt bilaterally. NEUROLOGIC: The patient has a flat affect, in no acute distress. Recall after 5 minutes is 2/3. Poor attention span, slow thought process. Cranial nerves II through XII are intact. Motor exam: Moves all extremities equally. No pronator drift seen. Sensory exam: Light touch, pinprick, proprioception and vibration are intact. DTRs are 2+ throughout. Coordination: [id number] intact. No dysmetria noted. IMPRESSION: This is a 72-year-old male with history of anxiety, depression and posttraumatic stress disorder, who was admitted for worsening severe depression and psychiatrically undergoing medical regimen. I was called for his abnormal CAT scan. CAT scan shows bilateral basal ganglia and lacunar infarctions, which the patient has nonfocal neurological deficits. Since he is a smoker, recommend aspirin 81 and Lipitor 20 mg for stroke prevention and can follow up as an outpatient. Thank you for this consult. Marco Appiah MD
[2018-03-06] MEDS: DORZOLAMIDE HCL OU SCH ×2 (10:07→22:00)
[2018-03-06] MEDS: TIMOLOL MALEATE OU SCH ×2 (10:07→22:00)
--- NOTE | 2018-03-06 14:43 | CON ---
DATE: 03/06/2018 HISTORY OF PRESENT ILLNESS: Mr. 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 Current medications, he is on Cosopt 1 drop both eyes twice a day. PHYSICAL EXAMINATION: EYES: His visual acuity is 20/400 in the right eye and 20/80 in the left eye. Corneal exam showed well-healed corneal transplant in the right eye. Lens exam showed pseudophakia in both eyes. Lens exam showed glaucoma changes in both eyes. ASSESSMENT: My assessment is Mr. 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 I renewed his Cosopt medication one drop both eyes twice a day and I instructed him to come and see me when he is discharged from the hospital. Everett Cardenas MD MTDD
--- NOTE | 2018-03-06 15:34 | PCM.PYCHPN ---
Psychiatric Progress Note - Psychiatric Progress Note Patient seen today, length of contact: 30 minutes Patient Chief Complaint: "I am little confused, I never said that I want to be off medications" Problems Identified/Issues Discussed: Suicide/ homicide prevention, past psychiatric h/o, current psychiatric symptoms, medical problems, risk/benefits and alternatives of medications, medications compliance, coping strategies, substance abuse h/o, relapse prevention, importance of follow up with psychiatrist and therapist, discharge plan. Medical Problems: as per HPI Diagnostic Results: 03/03/18 18:06 03/03/18 18:00 Lab Results 03/04/18 07:15: Fasting Glucose 76, Triglycerides 75, Cholesterol 151, LDL Cholesterol Direct 89, HDL Cholesterol 37 03/04/18 07:00: RPR Nonreactive 03/03/18 19:52: Urine Color Light yellow, Urine Appearance Clear, Urine pH 6.0, Ur Specific [place] 1.015, Urine Protein Negative, Urine Glucose (UA) Negative, Urine Ketones 15 H, Urine Blood Negative, Urine Nitrate Negative, Urine Bilirubin Small H, Urine Urobilinogen 0.2, Ur Leukocyte Esterase Negative 03/03/18 19:52: Urine Opiates Screen Negative, Urine Methadone Screen Negative, Ur Barbiturates Screen Negative, Ur Phencyclidine Scrn Negative, Ur Amphetamines Screen Negative, U Benzodiazepines Scrn Negative, U Oth Cocaine Metabols Negative, U Cannabinoids Screen Negative 03/03/18 18:06: WBC 9.2 D, RBC 5.34, Hgb 15.8, Hct 45.4, MCV 85.0, MCH 29.6, MCHC 34.8, RDW 14.9 H, Plt Count 203, MPV 12.7 H, Gran % 61.5, Lymph % (Auto) 24.9, [place] % (Auto) 12.5 H, Eos % (Auto) 1.0 L, Baso % (Auto) 0.1, Gran # 5.67, Lymph # (Auto) 2.3, [place] # (Auto) 1.2 H, Eos # (Auto) 0.1, Baso # (Auto) 0.01 03/03/18 18:00: Sodium 138, Potassium 5.0, Chloride 102, Carbon Dioxide 25, Anion Gap 16, BUN 22 H, Creatinine 1.3, Est GFR ( Amer) > 60, Est GFR (Non-Af Amer) 54, Random Glucose 86, Calcium 9.2, Magnesium 2.4 H, Total Bilirubin 0.7, AST 38, ALT 21, Alkaline Phosphatase 77, Total Protein 6.9, Albumin 4.0, Globulin 2.9, Albumin/Globulin Ratio 1.4 03/03/18 17:55: TSH 3rd Generation 3.63, Alcohol, Quantitative < 10 Vital Signs Temp Pulse Resp BP Pulse Ox 03/05/18 07:12 98.1 F 82 20 119/75 03/04/18 16:00 86 110/56 L 03/04/18 07:19 98.2 F 64 20 115/47 L 03/03/18 22:57 97.5 F L 56 L 20 131/72 03/03/18 21:54 98.7 F 74 16 110/62 95 03/03/18 17:12 98.1 F 78 18 132/80 98 DSM 5 Symptoms Update: shortly patient is 72year old male with reported hx anxiety, depression possible PTSD, currently is under care or [facility], patient denied history of previous psychiatric admissions, denied history of suicidal attempts, patient was brought in by his son for evaluation of worsening of depression, uncontrolled anxiety, patient missed 2 appointments With his psychiatrist, as a result patient karly short on benzodiazepines as well as Nefazodone, pt was feeling depressed, hopeless, helpless, was not able to sleep, lost appetite, had passive wish to be . pt was seen at the day treatment area, patient presented with marginal personal hygiene, acceptable ADLs. as per staff pt was refusing meds, saying that he wanted to be detoxed from all of the meds. pt was seen and examined, pt said that he wants to be on medications, denied that he ever refused meds, pt appeared to be confused. pt does not remember about tx plan was discussed yesterday and the day before yesterday. patient reported that he feels little better, but "not there yet", patient reported that he still feels anxious and depressed, reported some improvement with sleep. As per staff patient started attending groups, no agitation or aggression, med compliant. DSM 5 Diagnosis: mood disorder nos r/o ptsd r/o withdrawals from the meds Medication Change: Yes (klonopin scheduled, trazodon increased yesterday) Medical Record Reviewed: Yes Mental Status Examination - Cognitive Function Orientation: Person, Place, Situation, Time Memory: Intact Attention: Poor Concentration: Poor Association: WNL Fund of Knowledge: WNL - Mood Mood: Depressed, Anxious - Affect Affect: Constricted, Flat - Formal Thought Process Formal Thought Process: No Impairment - Suicidal Ideation Suicidal Ideation: No - Homicidal Ideation Homicidal Ideation: No Goal/Treatment Plan - Goal/Treatment Plan Need for Continued Stay: Remain at risks for inpatient hospitalization, Severe depression anxiety, Discharge may exacerbated symptoms, Severe functional impairment Progress Toward Problem(s) and Goals/Treatment Plan: Milieu/structure/supportive therapy Medical consult will be called neurology consultation was also called consultation for discharge plan and social issues Med management Klonopin 0.5 mg 3 times a day scheduled Trazodone 75 mg at the nighttime for depression and insomnia Family involvement Follow up on labs Will monitor closely Pt was educated about risk/benefits and alternatives of medications, coping strategies (safety plan, suicide prevention), relapse prevention, importance of follow up with psychiatrist and therapist, stay away from drugs/alcohol/smoking Estimated Date of D/C: 03/10/18
[2018-03-07] MEDS: DORZOLAMIDE HCL OU SCH ×2 (09:55→21:56)
[2018-03-07] MEDS: TIMOLOL MALEATE OU SCH ×2 (09:55→21:56)
--- NOTE | 2018-03-07 14:07 | PCM.PYCHPN ---
Psychiatric Progress Note - Psychiatric Progress Note Patient seen today, length of contact: 30 minutes Patient Chief Complaint: "I was not able to sleep" Problems Identified/Issues Discussed: Suicide/ homicide prevention, past psychiatric h/o, current psychiatric symptoms, medical problems, risk/benefits and alternatives of medications, medications compliance, coping strategies, substance abuse h/o, relapse prevention, importance of follow up with psychiatrist and therapist, discharge plan. Medical Problems: as per HPI Diagnostic Results: 03/03/18 18:06 03/03/18 18:00 Lab Results 03/04/18 07:15: Fasting Glucose 76, Triglycerides 75, Cholesterol 151, LDL Cholesterol Direct 89, HDL Cholesterol 37 03/04/18 07:00: RPR Nonreactive 03/03/18 19:52: Urine Color Light yellow, Urine Appearance Clear, Urine pH 6.0, Ur Specific [place] 1.015, Urine Protein Negative, Urine Glucose (UA) Negative, Urine Ketones 15 H, Urine Blood Negative, Urine Nitrate Negative, Urine Bilirubin Small H, Urine Urobilinogen 0.2, Ur Leukocyte Esterase Negative 03/03/18 19:52: Urine Opiates Screen Negative, Urine Methadone Screen Negative, Ur Barbiturates Screen Negative, Ur Phencyclidine Scrn Negative, Ur Amphetamines Screen Negative, U Benzodiazepines Scrn Negative, U Oth Cocaine Metabols Negative, U Cannabinoids Screen Negative 03/03/18 18:06: WBC 9.2 D, RBC 5.34, Hgb 15.8, Hct 45.4, MCV 85.0, MCH 29.6, MCHC 34.8, RDW 14.9 H, Plt Count 203, MPV 12.7 H, Gran % 61.5, Lymph % (Auto) 24.9, [place] % (Auto) 12.5 H, Eos % (Auto) 1.0 L, Baso % (Auto) 0.1, Gran # 5.67, Lymph # (Auto) 2.3, [place] # (Auto) 1.2 H, Eos # (Auto) 0.1, Baso # (Auto) 0.01 03/03/18 18:00: Sodium 138, Potassium 5.0, Chloride 102, Carbon Dioxide 25, Anion Gap 16, BUN 22 H, Creatinine 1.3, Est GFR ( Amer) > 60, Est GFR (Non-Af Amer) 54, Random Glucose 86, Calcium 9.2, Magnesium 2.4 H, Total Biliru bin 0.7, AST 38, ALT 21, Alkaline Phosphatase 77, Total Protein 6.9, Albumin 4.0, Globulin 2.9, Albumin/Globulin Ratio 1.4 03/03/18 17:55: TSH 3rd Generation 3.63, Alcohol, Quantitative < 10 Vital Signs Temp Pulse Resp BP Pulse Ox 03/05/18 07:12 98.1 F 82 20 119/75 03/04/18 16:00 86 110/56 L 03/04/18 07:19 98.2 F 64 20 115/47 L 03/03/18 22:57 97.5 F L 56 L 20 131/72 03/03/18 21:54 98.7 F 74 16 110/62 95 03/03/18 17:12 98.1 F 78 18 132/80 98 DSM 5 Symptoms Update: shortly patient is 72year old male with reported hx anxiety, depression possible PTSD, currently is under care or [facility], patient denied history of previous psychiatric admissions, denied history of suicidal attempts, patient was brought in by his son for evaluation of worsening of depression, uncontrolled anxiety, patient missed 2 appointments With his psychiatrist, as a result patient karly short on benzodiazepines as well as Nefazodone, pt was feeling depressed, hopeless, helpless, was not able to sleep, lost appetite, had passive wish to be . pt was seen today in his room, pt c/o insomnia, willing to increase Trazodon. pt also c/o weakness and dizziness, vitals are stable, pt was observed walking with steady gait. pt has good appetite. pt c/o dry mouth, pt said it is not new for him. patient reported that he feels little better, but "not there yet", patient reported that he still feels anxious and depressed, reported some improvement with sleep. As per staff patient started attending groups, no agitation or aggression, med compliant. DSM 5 Diagnosis: mood disorder nos r/o ptsd r/o withdrawals from the meds Medication Change: Yes (klonopin scheduled, trazodon increased) Medical Record Reviewed: Yes Consults ordered or reviewed: medical consult appreciated, please see notes for more detailed information Mental Status Examination - Cognitive Function Orientation: Person, Place, Situation, Time Memory: Intact Attention: Poor Concentration: Poor Association: WNL Fund of Knowledge: WNL - Mood Mood: Depressed, Anxious - Affect Affect: Constricted, Flat - Formal Thought Process Formal Thought Process: No Impairment - Suicidal Ideation Suicidal Ideation: No - Homicidal Ideation Homicidal Ideation: No Goal/Treatment Plan - Goal/Treatment Plan Need for Continued Stay: Remain at risks for inpatient hospitalization, Severe depression anxiety, Discharge may exacerbated symptoms, Severe functional impairment Progress Toward Problem(s) and Goals/Treatment Plan: Milieu/structure/supportive therapy Medical consult will be called neurology consultation was also called consultation for discharge plan and social issues Med management Klonopin 0.5 mg 3 times a day scheduled Trazodone 100 mg at the nighttime for depression and insomnia Family involvement Follow up on labs Will monitor closely Pt was educated about risk/benefits and alternatives of medications, coping strategies (safety plan, suicide prevention), relapse prevention, importance of follow up with psychiatrist and therapist, stay away from drugs/alcohol/smoking Estimated Date of D/C: 03/10/18
[2018-03-08] MEDS: DORZOLAMIDE HCL OU SCH ×2 (10:21→21:55)
[2018-03-08] MEDS: TIMOLOL MALEATE OU SCH ×2 (10:21→21:55)
--- NOTE | 2018-03-08 13:11 | PCM.PYCHPN ---
Psychiatric Progress Note - Psychiatric Progress Note Patient seen today, length of contact: 30 minutes Patient Chief Complaint: "I was not able to sleep" Problems Identified/Issues Discussed: Suicide/ homicide prevention, past psychiatric h/o, current psychiatric symptoms, medical problems, risk/benefits and alternatives of medications, medications compliance, coping strategies, substance abuse h/o, relapse prevention, importance of follow up with psychiatrist and therapist, discharge plan. Medical Problems: as per HPI Diagnostic Results: 03/03/18 18:06 03/03/18 18:00 Lab Results 03/04/18 07:15: Fasting Glucose 76, Triglycerides 75, Cholesterol 151, LDL Cholesterol Direct 89, HDL Cholesterol 37 03/04/18 07:00: RPR Nonreactive 03/03/18 19:52: Urine Color Light yellow, Urine Appearance Clear, Urine pH 6.0, Ur Specific [place] 1.015, Urine Protein Negative, Urine Glucose (UA) Negative, Urine Ketones 15 H, Urine Blood Negative, Urine Nitrate Negative, Urine Bilirubin Small H, Urine Urobilinogen 0.2, Ur Leukocyte Esterase Negative 03/03/18 19:52: Urine Opiates Screen Negative, Urine Methadone Screen Negative, Ur Barbiturates Screen Negative, Ur Phencyclidine Scrn Negative, Ur Amphetamines Screen Negative, U Benzodiazepines Scrn Negative, U Oth Cocaine Metabols Negative, U Cannabinoids Screen Negative 03/03/18 18:06: WBC 9.2 D, RBC 5.34, Hgb 15.8, Hct 45.4, MCV 85.0, MCH 29.6, MCHC 34.8, RDW 14.9 H, Plt Count 203, MPV 12.7 H, Gran % 61.5, Lymph % (Auto) 24.9, [place] % (Auto) 12.5 H, Eos % (Auto) 1.0 L, Baso % (Auto) 0.1, Gran # 5.67, Lymph # (Auto) 2.3, [place] # (Auto) 1.2 H, Eos # (Auto) 0.1, Baso # (Auto) 0.01 03/03/18 18:00: Sodium 138, Potassium 5.0, Chloride 102, Carbon Dioxide 25, Anion Gap 16, BUN 22 H, Creatinine 1.3, Est GFR ( Amer) > 60, Est GFR (Non-Af Amer) 54, Random Glucose 86, Calcium 9.2, Magnesium 2.4 H, Total Biliru bin 0.7, AST 38, ALT 21, Alkaline Phosphatase 77, Total Protein 6.9, Albumin 4.0, Globulin 2.9, Albumin/Globulin Ratio 1.4 03/03/18 17:55: TSH 3rd Generation 3.63, Alcohol, Quantitative < 10 Vital Signs Temp Pulse Resp BP Pulse Ox 03/05/18 07:12 98.1 F 82 20 119/75 03/04/18 16:00 86 110/56 L 03/04/18 07:19 98.2 F 64 20 115/47 L 03/03/18 22:57 97.5 F L 56 L 20 131/72 03/03/18 21:54 98.7 F 74 16 110/62 95 03/03/18 17:12 98.1 F 78 18 132/80 98 DSM 5 Symptoms Update: shortly patient is 72year old male with reported hx anxiety, depression possible PTSD, currently is under care or [facility], patient denied history of previous psychiatric admissions, denied history of suicidal attempts, patient was brought in by his son for evaluation of worsening of depression, uncontrolled anxiety, patient missed 2 appointments With his psychiatrist, as a result patient karly short on benzodiazepines as well as Nefazodone, pt was feeling depressed, hopeless, helpless, was not able to sleep, lost appetite, had passive wish to be . pt was seen today at the treatment area, patient complained that he was not able to sleep because of all noises "I am a light sleeper", patient reports that he feels depressed, patient reports that he has no energy to do anything, last time patient was feel "normal" was "weeks ago". pt has good appetite. patient reported that he feels little better, but "not there yet", patient reported that he still feels anxious and depressed, reported some improvement with sleep. As per staff patient started attending groups, no agitation or aggression, med compliant. DSM 5 Diagnosis: mood disorder nos r/o ptsd r/o withdrawals from the meds Medication Change: Yes (klonopin scheduled, trazodon increased) Medical Record Reviewed: Yes Mental Status Examination - Cognitive Function Orientation: Person, Place, Situation, Time Memory: Intact Attention: Poor Concentration: Poor Association: WNL Fund of Knowledge: WNL - Mood Mood: Depressed, Anxious - Affect Affect: Constricted, Flat - Formal Thought Process Formal Thought Process: No Impairment - Suicidal Ideation Suicidal Ideation: No - Homicidal Ideation Homicidal Ideation: No Goal/Treatment Plan - Goal/Treatment Plan Need for Continued Stay: Remain at risks for inpatient hospitalization, Severe depression anxiety, Discharge may exacerbated symptoms, Severe functional impairment Progress Toward Problem(s) and Goals/Treatment Plan: Milieu/structure/supportive therapy Medical consult will be called neurology consultation was also called consultation for discharge plan and social issues Med management Klonopin 0.5 mg 3 times a day scheduled Trazodone 100 mg at the nighttime for depression and insomnia Family involvement Follow up on labs Will monitor closely Pt was educated about risk/benefits and alternatives of medications, coping strategies (safety plan, suicide prevention), relapse prevention, importance of follow up with psychiatrist and therapist, stay away from drugs/alcohol/smoking Estimated Date of D/C: 03/10/18
[2018-03-09] MEDS: TIMOLOL MALEATE OU SCH ×2 (09:33→21:58)
[2018-03-09] MEDS: DORZOLAMIDE HCL OU SCH ×2 (09:33→21:58)
--- NOTE | 2018-03-10 08:19 | PN ---
DATE: 03/09/2018 Covering for Jayne Nelson MD SUBJECTIVE: Chart reviewed and case discussed with staff. The patient is a 72-year-old white male with a reported history of anxiety and depression and possibly PTSD. The [place] [facility] He denied a prior psychiatric inpatient history and denied a history of suicidality. He had been brought to the hospital by his son because of concern over his worsening depression, increasing anxiety and is having missed 2 appointments with his psychiatrist at the [facility]. As a result of this, he had run short on his benzodiazepines as well as nefazodone (Serzone) and was feeling increasingly depressed, hopeless, helpless and unable to sleep. He had lost his appetite and had passive wishes. 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 He apparently did not keep his appointment at the [facility] because he was upset because of a mix up in his appointment time (leading to more than one cancellations by the [facility]). He reported having seen a psychiatrist about 20 years ago after an industrial accident in which he was almost crushed by a pallet while working resulting in his having had PTS symptoms. Presently, the patient's affect reportedly is improving, he is alert and oriented to three spheres, pleasant, he is aware that he is starting to feel better. He denies suicidality or homicidality. He is being maintained psychotropically on Ativan p.r.n., trazodone 100 mg at bedtime, Geodon p.r.n., Klonopin 0.5 mg t.i.d. Laboratory results reviewed. Blood pressure 122/73, pulse elevated at 104, temperature 97.6, respiratory rate 19. Eitan Fairchild MD/ PhD
[2018-03-10] MEDS: TIMOLOL MALEATE OU SCH ×2 (09:58→22:06)
[2018-03-10] MEDS: DORZOLAMIDE HCL OU SCH ×2 (09:58→22:06)
--- NOTE | 2018-03-10 16:18 | PCM.PYCHPN ---
Psychiatric Progress Note - Psychiatric Progress Note Patient seen today, length of contact: 30 minutes Patient Chief Complaint: "I M not sleeping and I am constipated" Problems Identified/Issues Discussed: Suicide/ homicide prevention, past psychiatric h/o, current psychiatric symptoms, medical problems, risk/benefits and alternatives of medications, medications compliance, coping strategies, substance abuse h/o, relapse prevention, importance of follow up with psychiatrist and therapist, discharge plan. Medical Problems: as per HPI Diagnostic Results: 03/03/18 18:06 03/03/18 18:00 Lab Results 03/04/18 07:15: Fasting Glucose 76, Triglycerides 75, Cholesterol 151, LDL Cholesterol Direct 89, HDL Cholesterol 37 03/04/18 07:00: RPR Nonreactive 03/03/18 19:52: Urine Color Light yellow, Urine Appearance Clear, Urine pH 6.0, Ur Specific [place] 1.015, Urine Protein Negative, Urine Glucose (UA) Negative, Urine Ketones 15 H, Urine Blood Negative, Urine Nitrate Negative, Urine Bilirubin Small H, Urine Urobilinogen 0.2, Ur Leukocyte Esterase Negative 03/03/18 19:52: Urine Opiates Screen Negative, Urine Methadone Screen Negative, Ur Barbiturates Screen Negative, Ur Phencyclidine Scrn Negative, Ur Amphetamines Screen Negative, U Benzodiazepines Scrn Negative, U Oth Cocaine Metabols Negative, U Cannabinoids Screen Negative 03/03/18 18:06: WBC 9.2 D, RBC 5.34, Hgb 15.8, Hct 45.4, MCV 85.0, MCH 29.6, MCHC 34.8, RDW 14.9 H, Plt Count 203, MPV 12.7 H, Gran % 61.5, Lymph % (Auto) 24.9, [place] % (Auto) 12.5 H, Eos % (Auto) 1.0 L, Baso % (Auto) 0.1, Gran # 5.67, Lymph # (Auto) 2.3, [place] # (Auto) 1.2 H, Eos # (Auto) 0.1, Baso # (Auto) 0.01 03/03/18 18:00: Sodium 138, Potassium 5.0, Chloride 102, Carbon Dioxide 25, Anion Gap 16, BUN 22 H, Creatinine 1.3, Est GFR ( Amer) > 60, Est GFR (Non-Af Amer) 54, Random Glucose 86, Calcium 9.2, Magnesium 2.4 H, Total Bilirubin 0.7, AST 38, ALT 21, Alkaline Phosphatase 77, Total Protein 6.9, Albumin 4.0, Globulin 2.9, Albumin/Globulin Ratio 1.4 03/03/18 17:55: TSH 3rd Generation 3.63, Alcohol, Quantitative < 10 Vital Signs Temp Pulse Resp BP Pulse Ox 03/05/18 07:12 98.1 F 82 20 119/75 03/04/18 16:00 86 110/56 L 03/04/18 07:19 98.2 F 64 20 115/47 L 03/03/18 22:57 97.5 F L 56 L 20 131/72 03/03/18 21:54 98.7 F 74 16 110/62 95 03/03/18 17:12 98.1 F 78 18 132/80 98 DSM 5 Symptoms Update: shortly patient is 72year old male with reported hx anxiety, depression possible PTSD, currently is under care or [facility], patient denied history of previous psychiatric admissions, denied history of suicidal attempts, patient was brought in by his son for evaluation of worsening of depression, uncontrolled anxiety, patient missed 2 appointments With his psychiatrist, as a result patient karly short on benzodiazepines as well as Nefazodone, pt was feeling depressed, hopeless, helpless, was not able to sleep, lost appetite, had passive wish to be . pt was seen today next to the nursing station, patient complained that he was not able to sleep and he has constipation, besides that pt said he is feeling better. pt has good appetite. patient reported that he feels little better, but "not there yet", patient reported that he still feels anxious and depressed, reported some improvement with sleep. As per staff patient started attending groups, no agitation or aggression, med compliant. DSM 5 Diagnosis: mood disorder nos r/o ptsd r/o withdrawals from the meds, better Medication Change: Yes (klonopin scheduled, trazodon increased) Medical Record Reviewed: Yes Mental Status Examination - Cognitive Function Orientation: Person, Place, Situation, Time Memory: Intact Attention: Poor Concentration: Poor Association: WNL Fund of Knowledge: WNL - Mood Mood: Depressed, Anxious - Affect Affect: Constricted, Flat - Formal Thought Process Formal Thought Process: No Impairment - Suicidal Ideation Suicidal Ideation: No - Homicidal Ideation Homicidal Ideation: No Goal/Treatment Plan - Goal/Treatment Plan Need for Continued Stay: Remain at risks for inpatient hospitalization, Severe depression anxiety, Discharge may exacerbated symptoms, Severe functional impairment Progress Toward Problem(s) and Goals/Treatment Plan: Milieu/structure/supportive therapy Medical consult will be called neurology consultation was also called consultation for discharge plan and social issues Med management sonata 5mg po hs for insomnia Klonopin 0.5 mg 3 times a day scheduled Trazodone 100 mg at the nighttime for depression and insomnia Family involvement Follow up on labs Will monitor closely Pt was educated about risk/benefits and alternatives of medications, coping strategies (safety plan, suicide prevention), relapse prevention, importance of follow up with psychiatrist and therapist, stay away from drugs/alcohol/smoking Estimated Date of D/C: 03/13/18
[2018-03-11 07:17] VITALS: RESP 20
[2018-03-11] MEDS: TIMOLOL MALEATE OU SCH ×2 (09:52→22:04)
[2018-03-11] MEDS: DORZOLAMIDE HCL OU SCH ×2 (09:52→22:04)
--- NOTE | 2018-03-11 17:25 | PCM.PYCHPN ---
Psychiatric Progress Note - Psychiatric Progress Note Patient seen today, length of contact: 30 minutes Patient Chief Complaint: "I am not doing well, I am still feel very depressed, I want to feel better, I want to take care of myself as it was before". Problems Identified/Issues Discussed: Suicide/ homicide prevention, past psychiatric h/o, current psychiatric symptoms, medical problems, risk/benefits and alternatives of medications, medications compliance, coping strategies, substance abuse h/o, relapse prevention, importance of follow up with psychiatrist and therapist, discharge plan. Medical Problems: as per HPI Diagnostic Results: 03/03/18 18:06 03/03/18 18:00 Lab Results 03/04/18 07:15: Fasting Glucose 76, Triglycerides 75, Cholesterol 151, LDL Cholesterol Direct 89, HDL Cholesterol 37 03/04/18 07:00: RPR Nonreactive 03/03/18 19:52: Urine Color Light yellow, Urine Appearance Clear, Urine pH 6.0, Ur Specific [place] 1.015, Urine Protein Negative, Urine Glucose (UA) Negative, Urine Ketones 15 H, Urine Blood Negative, Urine Nitrate Negative, Urine Bilirubin Small H, Urine Urobilinogen 0.2, Ur Leukocyte Esterase Negative 03/03/18 19:52: Urine Opiates Screen Negative, Urine Methadone Screen Negative, Ur Barbiturates Screen Negative, Ur Phencyclidine Scrn Negative, Ur Amphetamines Screen Negative, U Benzodiazepines Scrn Negative, U Oth Cocaine Metabols Negative, U Cannabinoids Screen Negative 03/03/18 18:06: WBC 9.2 D, RBC 5.34, Hgb 15.8, Hct 45.4, MCV 85.0, MCH 29.6, MCHC 34.8, RDW 14.9 H, Plt Count 203, MPV 12.7 H, Gran % 61.5, Lymph % (Auto) 24.9, [place] % (Auto) 12.5 H, Eos % (Auto) 1.0 L, Baso % (Auto) 0.1, Gran # 5.67, Lymph # (Auto) 2.3, [place] # (Auto) 1.2 H, Eos # (Auto) 0.1, Baso # (Auto) 0.01 03/03/18 18:00: Sodium 138, Potassium 5.0, Chloride 102, Carbon Dioxide 25, Anion Gap 16, BUN 22 H, Creatinine 1.3, Est GFR ( Amer) > 60, Est GFR (Non-Af Amer) 54, Random Glucose 86, Calcium 9.2, Magnesium 2.4 H, Total Biliru bin 0.7, AST 38, ALT 21, Alkaline Phosphatase 77, Total Protein 6.9, Albumin 4.0, Globulin 2.9, Albumin/Globulin Ratio 1.4 03/03/18 17:55: TSH 3rd Generation 3.63, Alcohol, Quantitative < 10 Vital Signs Temp Pulse Resp BP Pulse Ox 03/05/18 07:12 98.1 F 82 20 119/75 03/04/18 16:00 86 110/56 L 03/04/18 07:19 98.2 F 64 20 115/47 L 03/03/18 22:57 97.5 F L 56 L 20 131/72 03/03/18 21:54 98.7 F 74 16 110/62 95 03/03/18 17:12 98.1 F 78 18 132/80 98 DSM 5 Symptoms Update: shortly patient is 72year old male with reported hx anxiety, depression possible PTSD, currently is under care or [facility], patient denied history of previous psychiatric admissions, denied history of suicidal attempts, patient was brought in by his son for evaluation of worsening of depression, uncontrolled anxiety, patient missed 2 appointments With his psychiatrist, as a result patient karly short on benzodiazepines as well as Nefazodone, pt was feeling depressed, hopeless, helpless, was not able to sleep, lost appetite, had passive wish to be . pt was seen today at the treatment team meeting, patient presented to be tearful, reported that he does not feel better, patient reported that he still feels constipated, and not able to sleep, patient reported that he feels hopeless, helpless, but he wants to get better. pt has good appetite. as per staff patient is not participating in unit activities,stay alone in his room. As per staff patient started attending groups, no agitation or aggression, med compliant. DSM 5 Diagnosis: mood disorder nos r/o ptsd r/o withdrawals from the meds, better Medication Change: Yes (trazodone discontinued, Remeron started,, Ambien started, so not to discont) Medical Record Reviewed: Yes Mental Status Examination - Cognitive Function Orientation: Person, Place, Situation, Time Memory: Intact Attention: Poor Concentration: Poor Association: WNL Fund of Knowledge: WNL - Mood Mood: Depressed, Anxious - Affect Affect: Constricted, Flat - Formal Thought Process Formal Thought Process: No Impairment - Suicidal Ideation Suicidal Ideation: No - Homicidal Ideation Homicidal Ideation: No Goal/Treatment Plan - Goal/Treatment Plan Need for Continued Stay: Remain at risks for inpatient hospitalization, Severe depression anxiety, Discharge may exacerbated symptoms, Severe functional impairment Progress Toward Problem(s) and Goals/Treatment Plan: Milieu/structure/supportive therapy Medical consult will be called neurology consultation was also called consultation for discharge plan and social issues Med management sonata discontinued Klonopin 0.5 mg 3 times a day scheduled Trazodone discontinued Remeron 15 mg at the nighttime for depression Ambien 5 mg at the nighttime for insomnia Family involvement Follow up on labs Will monitor closely Pt was educated about risk/benefits and alternatives of medications, coping strategies (safety plan, suicide prevention), relapse prevention, importance of follow up with psychiatrist and therapist, stay away from drugs/alcohol/smoking Estimated Date of D/C: 03/13/18
[2018-03-11] MEDS ORDERED: Magnesium Hydroxide Susp 30 ml UD PO PRN (17:29)
[2018-03-12] MEDS: Docusate-Senna 50 mg-8.6 mg Tab PO SCH (09:29)
[2018-03-12] MEDS: TIMOLOL MALEATE OU SCH ×2 (09:31→21:58)
[2018-03-12] MEDS: DORZOLAMIDE HCL OU SCH ×2 (09:31→21:58)
--- NOTE | 2018-03-12 15:20 | PCM.PYCHPN ---
Psychiatric Progress Note - Psychiatric Progress Note Patient seen today, length of contact: 30 minutes Patient Chief Complaint: "I did slept better, I move my bowel, but I'm not ready to go, I will be not ready to go for a while" Problems Identified/Issues Discussed: Suicide/ homicide prevention, past psychiatric h/o, current psychiatric symptoms, medical problems, risk/benefits and alternatives of medications, medications compliance, coping strategies, substance abuse h/o, relapse prevention, importance of follow up with psychiatrist and therapist, discharge plan. Medical Problems: as per HPI Diagnostic Results: 03/03/18 18:06 03/03/18 18:00 Lab Results 03/04/18 07:15: Fasting Glucose 76, Triglycerides 75, Cholesterol 151, LDL Cholesterol Direct 89, HDL Cholesterol 37 03/04/18 07:00: RPR Nonreactive 03/03/18 19:52: Urine Color Light yellow, Urine Appearance Clear, Urine pH 6.0, Ur Specific [place] 1.015, Urine Protein Negative, Urine Glucose (UA) Negative, Urine Ketones 15 H, Urine Blood Negative, Urine Nitrate Negative, Urine Bilirubin Small H, Urine Urobilinogen 0.2, Ur Leukocyte Esterase Negative 03/03/18 19:52: Urine Opiates Screen Negative, Urine Methadone Screen Negative, Ur Barbiturates Screen Negative, Ur Phencyclidine Scrn Negative, Ur Amphetamines Screen Negative, U Benzodiazepines Scrn Negative, U Oth Cocaine Metabols Negative, U Cannabinoids Screen Negative 03/03/18 18:06: WBC 9.2 D, RBC 5.34, Hgb 15.8, Hct 45.4, MCV 85.0, MCH 29.6, MCHC 34.8, RDW 14.9 H, Plt Count 203, MPV 12.7 H, Gran % 61.5, Lymph % (Auto) 24.9, [place] % (Auto) 12.5 H, Eos % (Auto) 1.0 L, Baso % (Auto) 0.1, Gran # 5.67, Lymph # (Auto) 2.3, [place] # (Auto) 1.2 H, Eos # (Auto) 0.1, Baso # (Auto) 0.01 03/03/18 18:00: Sodium 138, Potassium 5.0, Chloride 102, Carbon Dioxide 25, Anion Gap 16, BUN 22 H, Creatinine 1.3, Est GFR ( Amer) > 60, Est GFR (Non-Af Amer) 54, Random Glucose 86, Calcium 9.2, Magnesium 2.4 H, Total Bilirubin 0.7, AST 38, ALT 21, Alkaline Phosphatase 77, Total Protein 6.9, Albumin 4.0, Globulin 2.9, Albumin/Globulin Ratio 1.4 03/03/18 17:55: TSH 3rd Generation 3.63, Alcohol, Quantitative < 10 Vital Signs Temp Pulse Resp BP Pulse Ox 03/05/18 07:12 98.1 F 82 20 119/75 03/04/18 16:00 86 110/56 L 03/04/18 07:19 98.2 F 64 20 115/47 L 03/03/18 22:57 97.5 F L 56 L 20 131/72 03/03/18 21:54 98.7 F 74 16 110/62 95 03/03/18 17:12 98.1 F 78 18 132/80 98 DSM 5 Symptoms Update: shortly patient is 72year old male with reported hx anxiety, depression possible PTSD, currently is under care or [facility], patient denied history of previous psychiatric admissions, denied history of suicidal attempts, patient was brought in by his son for evaluation of worsening of depression, uncontrolled anxiety, patient missed 2 appointments With his psychiatrist, as a result patient karly short on benzodiazepines as well as Nefazodone, pt was feeling depressed, hopeless, helpless, was not able to sleep, lost appetite, had passive wish to be . pt was seen today Nursing station, hygiene is much better, affect is brighter, patient reported that he slept better, patient reports that he move his bowel, at the same time patient said that he is not ready to go and he will be not ready to go back home for a while, when this music writer asked Demar Rose patient reported that he is not ready to go he wanted to be "perfectly fine in order to take care of myself", patient seems to be needy, seems to like to be in the hospital, likes to be taken care off. pt has good appetite. as per staff today was the first day when patient participated in group activities. patient tolerates medications well, no side effects observed or reported, aims 0, no EPS. DSM 5 Diagnosis: mood disorder nos r/o ptsd r/o withdrawals from the meds, better Medication Change: Yes (trazodone discontinued, Remeron started,, Ambien started, so not to discont) Medical Record Reviewed: Yes Mental Status Examination - Cognitive Function Orientation: Person, Place, Situation, Time Memory: Intact Attention: Poor Concentration: Poor Association: WNL Fund of Knowledge: WNL - Mood Mood: Depressed ("I feel better, but not directed to go, I will be not ready to go for a while"), Anxious - Affect Affect: Constricted, Flat - Formal Thought Process Formal Thought Process: No Impairment - Suicidal Ideation Suicidal Ideation: No - Homicidal Ideation Homicidal Ideation: No Goal/Treatment Plan - Goal/Treatment Plan Need for Continued Stay: Remain at risks for inpatient hospitalization, Severe depression anxiety, Discharge may exacerbated symptoms, Severe functional impa irment Progress Toward Problem(s) and Goals/Treatment Plan: Milieu/structure/supportive therapy Medical consult will be called neurology consultation was also called consultation for discharge plan and social issues Med management sonata discontinued Klonopin 0.5 mg 3 times a day scheduled Trazodone discontinued Remeron 15 mg at the nighttime for depression Ambien 5 mg at the nighttime for insomnia Family involvement Follow up on labs Will monitor closely Pt was educated about risk/benefits and alternatives of medications, coping strategies (safety plan, suicide prevention), relapse prevention, importance of follow up with psychiatrist and therapist, stay away from drugs/alcohol/smoking Estimated Date of D/C: 03/13/18
[2018-03-13] MEDS: Docusate-Senna 50 mg-8.6 mg Tab PO SCH (09:47)
[2018-03-13] MEDS: TIMOLOL MALEATE OU SCH ×2 (09:48→22:05)
[2018-03-13] MEDS: DORZOLAMIDE HCL OU SCH ×2 (09:48→22:05)
--- NOTE | 2018-03-13 16:25 | PCM.PYCHPN ---
Psychiatric Progress Note - Psychiatric Progress Note Patient seen today, length of contact: 30 minutes Patient Chief Complaint: "I feel so-so, I am not ready to go" Problems Identified/Issues Discussed: Suicide/ homicide prevention, past psychiatric h/o, current psychiatric symptoms, medical problems, risk/benefits and alternatives of medications, medications compliance, coping strategies, substance abuse h/o, relapse prevention, importance of follow up with psychiatrist and therapist, discharge plan. Medical Problems: as per HPI Diagnostic Results: 03/03/18 18:06 03/03/18 18:00 Lab Results 03/04/18 07:15: Fasting Glucose 76, Triglycerides 75, Cholesterol 151, LDL Cholesterol Direct 89, HDL Cholesterol 37 03/04/18 07:00: RPR Nonreactive 03/03/18 19:52: Urine Color Light yellow, Urine Appearance Clear, Urine pH 6.0, Ur Specific [place] 1.015, Urine Protein Negative, Urine Glucose (UA) Negative, Urine Ketones 15 H, Urine Blood Negative, Urine Nitrate Negative, Urine Bilirubin Small H, Urine Urobilinogen 0.2, Ur Leukocyte Esterase Negative 03/03/18 19:52: Urine Opiates Screen Negative, Urine Methadone Screen Negative, Ur Barbiturates Screen Negative, Ur Phencyclidine Scrn Negative, Ur Amphetamines Screen Negative, U Benzodiazepines Scrn Negative, U Oth Cocaine Metabols N egative, U Cannabinoids Screen Negative 03/03/18 18:06: WBC 9.2 D, RBC 5.34, Hgb 15.8, Hct 45.4, MCV 85.0, MCH 29.6, MCHC 34.8, RDW 14.9 H, Plt Count 203, MPV 12.7 H, Gran % 61.5, Lymph % (Auto) 24.9, [place] % (Auto) 12.5 H, Eos % (Auto) 1.0 L, Baso % (Auto) 0.1, Gran # 5.67, Lymph # (Auto) 2.3, [place] # (Auto) 1.2 H, Eos # (Auto) 0.1, Baso # (Auto) 0.01 03/03/18 18:00: Sodium 138, Potassium 5.0, Chloride 102, Carbon Dioxide 25, Anion Gap 16, BUN 22 H, Creatinine 1.3, Est GFR ( Amer) > 60, Est GFR (Non-Af Amer) 54, Random Glucose 86, Calcium 9.2, Magnesium 2.4 H, Total Bilirubin 0.7, AST 38, ALT 21, Alkaline Phosphatase 77, Total Protein 6.9, Albumin 4.0, Globulin 2.9, Albumin/Globulin Ratio 1.4 03/03/18 17:55: TSH 3rd Generation 3.63, Alcohol, Quantitative < 10 Vital Signs Temp Pulse Resp BP Pulse Ox 03/05/18 07:12 98.1 F 82 20 119/75 03/04/18 16:00 86 110/56 L 03/04/18 07:19 98.2 F 64 20 115/47 L 03/03/18 22:57 97.5 F L 56 L 20 131/72 03/03/18 21:54 98.7 F 74 16 110/62 95 03/03/18 17:12 98.1 F 78 18 132/80 98 DSM 5 Symptoms Update: shortly patient is 72year old male with reported hx anxiety, depression possible PTSD, currently is under care or [facility], patient denied history of previous psychiatric admissions, denied history of suicidal attempts, patient was brought in by his son for evaluation of worsening of depression, uncontrolled anxiety, patient missed 2 appointments With his psychiatrist, as a result patient karly short on benzodiazepines as well as Nefazodone, pt was feeling depressed, hopeless, helpless, was not able to sleep, lost appetite, had passive wish to be . pt was seen today at the dinning area, initially pt refused to talk to this screen writer because he wants to eat first. pt saying that he does not feel good and his mood is "so-so", pt said that he still did not sleep well despite the fact that he was able to sleep through the night. pt said he is not ready to go he wanted to be "perfectly fine in order to take care of myself", patient seems to be needy, seems to like to be in the hospital, likes to be taken care off. pt has good appetite. as per staff today was the first day when patient participated in group activities. patient tolerates medications well, no side effects observed or reported, aims 0, no EPS. DSM 5 Diagnosis: mood disorder nos r/o ptsd r/o withdrawals from the meds, better Medication Change: Yes (remeron increased) Medical Record Reviewed: Yes Mental Status Examination - Cognitive Function Orientation: Person, Place, Situation, Time Memory: Intact Attention: Poor Concentration: Poor Association: WNL Fund of Knowledge: WNL - Mood Mood: Depressed ("I feel better, but not directed to go, I will be not ready to go for a while"), Anxious - Affect Affect: Constricted, Flat - Formal Thought Process Formal Thought Process: No Impairment - Suicidal Ideation Suicidal Ideation: No - Homicidal Ideation Homicidal Ideation: No Goal/Treatment Plan - Goal/Treatment Plan Need for Continued Stay: Remain at risks for inpatient hospitalization, Severe depression anxiety, Discharge may exacerbated symptoms, Severe functional impairment Progress Toward Problem(s) and Goals/Treatment Plan: Milieu/structure/supportive therapy Medical consult will be called neurology consultation was also called consultation for discharge plan and social issues Med management sonata discontinued Klonopin 0.5 mg 3 times a day scheduled Trazodone discontinued Remeron 15 mg at the nighttime for depression Ambien 5 mg at the nighttime for insomnia Family involvement Follow up on labs Will monitor closely Pt was educated about risk/benefits and alternatives of medications, coping strategies (safety plan, suicide prevention), relapse prevention, importance of follow up with psychiatrist and therapist, stay away from drugs/alcohol/smoking Estimated Date of D/C: 03/16/18
[2018-03-14] MEDS: TIMOLOL MALEATE OU SCH ×2 (09:23→22:17)
[2018-03-14] MEDS: DORZOLAMIDE HCL OU SCH ×2 (09:23→22:17)
[2018-03-14] MEDS: Docusate-Senna 50 mg-8.6 mg Tab PO SCH (09:23)
--- NOTE | 2018-03-14 13:01 | PCM.PYCHPN ---
Psychiatric Progress Note - Psychiatric Progress Note Patient seen today, length of contact: 30 minutes Patient Chief Complaint: "I feel so-so, I am not ready to go" Problems Identified/Issues Discussed: Suicide/ homicide prevention, past psychiatric h/o, current psychiatric symptoms, medical problems, risk/benefits and alternatives of medications, medications compliance, coping strategies, substance abuse h/o, relapse prevention, importance of follow up with psychiatrist and therapist, discharge plan. Medical Problems: as per HPI ppatient complains of constipation, local medical consult. Diagnostic Results: 03/03/18 18:06 03/03/18 18:00 Lab Results 03/04/18 07:15: Fasting Glucose 76, Triglycerides 75, Cholesterol 151, LDL Cholesterol Direct 89, HDL Cholesterol 37 03/04/18 07:00: RPR Nonreactive 03/03/18 19:52: Urine Color Light yellow, Urine Appearance Clear, Urine pH 6.0, Ur Specific [place] 1.015, Urine Protein Negative, Urine Glucose (UA) Negative, Urine Ketones 15 H, Urine Blood Negative, Urine Nitrate Negative, Urine Bilirubin Small H, Urine Urobilinogen 0.2, Ur Leukocyte Esterase Negative 03/03/18 19:52: Urine Opiates Screen Negative, Urine Methadone Screen Negative, Ur Barbiturates Screen Negative, Ur Phencyclidine Scrn Negative, Ur Amphetamines Screen Negative, U Benzodiazepines Scrn Negative, U Oth Cocaine Metabols Negative, U Cannabinoids Screen Negative 03/03/18 18:06: WBC 9.2 D, RBC 5.34, Hgb 15.8, Hct 45.4, MCV 85.0, MCH 29.6, MCHC 34.8, RDW 14.9 H, Plt Count 203, MPV 12.7 H, Gran % 61.5, Lymph % (Auto) 24.9, [place] % (Auto) 12.5 H, Eos % (Auto) 1.0 L, Baso % (Auto) 0.1, Gran # 5.67, Lymph # (Auto) 2.3, [place] # (Auto) 1.2 H, Eos # (Auto) 0.1, Baso # (Auto) 0.01 03/03/18 18:00: Sodium 138, Potassium 5.0, Chloride 102, Carbon Dioxide 25, Anion Gap 16, BUN 22 H, Creatinine 1.3, Est GFR ( Amer) > 60, Est GFR (Non-Af Amer) 54, Random Glucose 86, Calcium 9.2, Magnesium 2.4 H, Total Bilirubin 0.7, AST 38, ALT 21, Alkaline Phosphatase 77, Total Protein 6.9, Albumin 4.0, Globulin 2.9, Albumin/Globulin Ratio 1.4 03/03/18 17:55: TSH 3rd Generation 3.63, Alcohol, Quantitative < 10 Vital Signs Temp Pulse Resp BP Pulse Ox 03/05/18 07:12 98.1 F 82 20 119/75 03/04/18 16:00 86 110/56 L 03/04/18 07:19 98.2 F 64 20 115/47 L 03/03/18 22:57 97.5 F L 56 L 20 131/72 03/03/18 21:54 98.7 F 74 16 110/62 95 03/03/18 17:12 98.1 F 78 18 132/80 98 DSM 5 Symptoms Update: shortly patient is 72year old male with reported hx anxiety, depression possible PTSD, currently is under care or [facility], patient denied history of previous psychiatric admissions, denied hist ory of suicidal attempts, patient was brought in by his son for evaluation of worsening of depression, uncontrolled anxiety, patient missed 2 appointments With his psychiatrist, as a result patient karly short on benzodiazepines as well as Nefazodone, pt was feeling depressed, hopeless, helpless, was not able to sleep, lost appetite, had passive wish to be . pt was seen today in his room, pt said that he still feels constipated, as per report pt slept through the night, but pt seems to be hesitant to say that he feels better, Pt is preoccupied with klonopin, was keep asking did this functional tester typewriters decrease it or not. off note pt asked this functional tester typewriters to start tapering klonopin on 03/13/2018. pt said he is not ready to go he wanted to be "perfectly fine in order to take care of myself", patient seems to be needy, seems to like to be in the hospital, likes to be taken care off. pt has good appetite. as per staff Patient is visible in the unit, participating in unit activities. patient tolerates medications well, no side effects observed or reported, aims 0, no EPS. DSM 5 Diagnosis: mood disorder nos r/o ptsd r/o withdrawals from the meds, better Medication Change: Yes (remeron increased) Medical Record Reviewed: Yes Mental Status Examination - Cognitive Function Orientation: Person, Place, Situation, Time Memory: Intact Attention: Poor (some improvement) Concentration: Poor (some improvement) Association: WNL Fund of Knowledge: WNL - Mood Mood: Depressed ("I feel better, but not ready to go, I will be not ready to go for a while"), Anxious - Affect Affect: Constricted, Flat - Formal Thought Process Formal Thought Process: No Impairment - Suicidal Ideation Suicidal Ideation: No - Homicidal Ideation Homicidal Ideation: No Goal/Treatment Plan - Goal/Treatment Plan Need for Continued Stay: Remain at risks for inpatient hospitalization, Severe depression anxiety, Discharge may exacerbated symptoms, Severe functional impairment Progress Toward Problem(s) and Goals/Treatment Plan: Milieu/structure/supportive therapy Medical consult will be called neurology consultation was also called consultation for discharge plan and social issues Med management sonata discontinued Klonopin 0.25 mg 2 times a day scheduled Trazodone discontinued Remeron 15 mg at the nighttime for depression Ambien 5 mg at the nighttime for insomnia Family involvement Follow up on labs Will monitor closely Pt was educated about risk/benefits and alternatives of medications, coping strategies (safety plan, suicide prevention), relapse prevention, importance of follow up with psychiatrist and therapist, stay away from drugs/alcohol/smoking Estimated Date of D/C: 03/16/18
[2018-03-15] MEDS: Docusate-Senna 50 mg-8.6 mg Tab PO SCH (08:55)
[2018-03-15] MEDS: TIMOLOL MALEATE OU SCH ×2 (09:08→21:54)
[2018-03-15] MEDS: DORZOLAMIDE HCL OU SCH ×2 (09:08→21:54)
--- NOTE | 2018-03-15 10:56 | PCM.PYCHPN ---
Psychiatric Progress Note - Psychiatric Progress Note Patient seen today, length of contact: 30 minutes Patient Chief Complaint: "I still feel little constipated, I am not that well, I do not sleep well, I am a light sleeper, I do not want to take klonozepam ever" Problems Identified/Issues Discussed: Suicide/ homicide prevention, past psychiatric h/o, current psychiatric symptoms, medical problems, risk/benefits and alternatives of medications, medications compliance, coping strategies, substance abuse h/o, relapse prevention, importance of follow up with psychiatrist and therapist, discharge plan. Medical Problems: as per HPI ppatient complains of constipation, local medical consult. Diagnostic Results: 03/03/18 18:06 03/03/18 18:00 Lab Results 03/04/18 07:15: Fasting Glucose 76, Triglycerides 75, Cholesterol 151, LDL Cholesterol Direct 89, HDL Cholesterol 37 03/04/18 07:00: RPR Nonreactive 03/03/18 19:52: Urine Color Light yellow, Urine Appearance Clear, Urine pH 6.0, Ur Specific [place] 1.015, Urine Protein Negative, Urine Glucose (UA) Negative, Urine Ketones 15 H, Urine Blood Negative, Urine Nitrate Negative, Urine Bilirubin Small H, Urine Urobilinogen 0.2, Ur Leukocyte Esterase Negative 03/03/18 19:52: Urine Opiates Screen Negative, Urine Methadone Screen Negative, Ur Barbiturates Screen Negative, Ur Phencyclidine Scrn Negative, Ur Amphetamines Screen Negative, U Benzodiazepines Scrn Negative, U Oth Cocaine Metabols Negative, U Cannabinoids Screen Negative 03/03/18 18:06: WBC 9.2 D, RBC 5.34, Hgb 15.8, Hct 45.4, MCV 85.0, MCH 29.6, MCHC 34.8, RDW 14.9 H, Plt Count 203, MPV 12.7 H, Gran % 61.5, Lymph % (Auto) 24.9, [place] % (Auto) 12.5 H, Eos % (Auto) 1.0 L, Baso % (Auto) 0.1, Gran # 5.67, Lymph # (Auto) 2.3, [place] # (Auto) 1.2 H, Eos # (Auto) 0.1, Baso # (Auto) 0.01 03/03/18 18:00: Sodium 138, Potassium 5.0, Chloride 102, Carbon Dioxide 25, Anion Gap 16, BUN 22 H, Creatinine 1.3, Est GFR ( Amer) > 60, Est GFR (Non-Af Amer) 54, Random Glucose 86, Calcium 9.2, Magnesium 2.4 H, Total Bilirubin 0.7, AST 38, ALT 21, Alkaline Phosphatase 77, Total Protein 6.9, Albumin 4.0, Globulin 2.9, Albumin/Globulin Ratio 1.4 03/03/18 17:55: TSH 3rd Generation 3.63, Alcohol, Quantitative < 10 Vital Signs Temp Pulse Resp BP Pulse Ox 03/05/18 07:12 98.1 F 82 20 119/75 03/04/18 16:00 86 110/56 L 03/04/18 07:19 98.2 F 64 20 115/47 L 03/03/18 22:57 97.5 F L 56 L 20 131/72 03/03/18 21:54 98.7 F 74 16 110/62 95 03/03/18 17:12 98.1 F 78 18 132/80 98 DSM 5 Symptoms Update: shortly patient is 72year old male with reported hx anxiety, depression possible PTSD, currently is under care or [facility], patient denied history of previous psychiatric admissions, denied hist ory of suicidal attempts, patient was brought in by his son for evaluation of worsening of depression, uncontrolled anxiety, patient missed 2 appointments With his psychiatrist, as a result patient karly short on benzodiazepines as well as Nefazodone, pt was feeling depressed, hopeless, helpless, was not able to sleep, lost appetite, had passive wish to be . pt was seen next to the nursing station, pt is needy as per staff pt expecting all of his needs to be addressed at the moment of request, at times pt could be irritable and annoyed, but pt has good appetite, eats 100% meals, sleeps well, no agitation or aggression, pt is no anxious. pt reported that he feels "no good still, may I stay here longer?". pt said he is not ready to go he wanted to be "perfectly fine in order to take care of myself", seems to like to be in the hospital, likes to be taken care off. as per staff Patient is visible in the unit, participating in unit activities. patient tolerates medications well, no side effects observed or reported, aims 0, no EPS. DSM 5 Diagnosis: mood disorder nos r/o ptsd r/o withdrawals from the meds, better Medication Change: No (remeron increased yessterday, klonopin d/c) Medical Record Reviewed: Yes Mental Status Examination - Cognitive Function Orientation: Person, Place, Situation, Time Memory: Intact Attention: Poor (some improvement) Concentration: Poor (some improvement) Association: WNL Fund of Knowledge: WNL - Mood Mood: Depressed ("I feel better, but not ready to go, I will be not ready to go for a while"), Anxious - Affect Affect: Constricted, Flat - Formal Thought Process Formal Thought Process: No Impairment - Suicidal Ideation Suicidal Ideation: No - Homicidal Ideation Homicidal Ideation: No Goal/Treatment Plan - Goal/Treatment Plan Need for Continued Stay: Remain at risks for inpatient hospitalization, Severe depression anxiety, Discharge may exacerbated symptoms, Severe functional impairment Progress Toward Problem(s) and Goals/Treatment Plan: Milieu/structure/supportive therapy Medical consult will be called neurology consultation was also called consultation for discharge plan and social issues Med management sonata discontinued Klonopin 0.25 at am and then d/c Trazodone discontinued Remeron 30 mg at the nighttime for depression Ambien 5 mg at the nighttime for insomnia Family involvement Follow up on labs Will monitor closely Pt was educated about risk/benefits and alternatives of medications, coping strategies (safety plan, suicide prevention), relapse prevention, importance of follow up with psychiatrist and therapist, stay away from drugs/alcohol/smoking Estimated Date of D/C: 03/16/18
[2018-03-16] MEDS: Docusate-Senna 50 mg-8.6 mg Tab PO SCH (09:19)
[2018-03-16] MEDS: DORZOLAMIDE HCL OU SCH ×2 (10:06→21:30)
[2018-03-16] MEDS: TIMOLOL MALEATE OU SCH ×2 (10:06→21:30)
[2018-03-17 07:39] VITALS: BP 127/59; PULSE 36; TEMP 98.5
[2018-03-17] MEDS: Docusate-Senna 50 mg-8.6 mg Tab PO SCH (09:12)
--- NOTE | 2018-03-17 10:00 | PCM.PYCHDC ---
Mental Status Examination - Mental Status Examination Orientation: Person, Place, Situation Memory: Intact Mood: Anxious Affect: Broad Speech: Appropriate Attention: WNL Concentration: WNL Association: WNL Fund of Knowledge: WNL Formal Thought Process: No Impairment Description of patient's judgement and insight: Improved I/J and IC Psychotic Thoughts and Behaviors: Denies AVH or paranoia. Delusions were not elicited Suicidal Ideation: No Current Homicidal Ideation?: No Discharge Summary - Discharge Note Reason for Hospitalization: shortly patient is 72year old male with reported hx anxiety, depression possible PTSD, currently is under care or [facility], patient denied history of previous psychiatric admissions, denied history of suicidal attempts, patient was brought in by his son for evaluation of worsening of depression, uncontrolled anxiety, patient missed 2 appointments With his psychiatrist, as a result patient karly short on benzodiazepines as well as Nefazodone, pt was feeling depressed, hopeless, helpless, was not able to sleep, lost appetite, had passive wish to be . Psychiatric History (includes Medical, Family, Personal Hx): as per HPI Laboratory Data: Laboratory Tests 03/03/18 03/03/18 03/03/18 17:55 18:00 18:06 WBC 9.2 D RBC 5.34 Hgb 15.8 Hct 45.4 MCV 85.0 MCH 29.6 MCHC 34.8 RDW 14.9 H Plt Count 203 MPV 12.7 H Gran % 61.5 Lymph % (Auto) 24.9 [place] % (Auto) 12.5 H Eos % (Auto) 1.0 L Baso % (Auto) 0.1 Gran # 5.67 Lymph # (Auto) 2.3 [place] # (Auto) 1.2 H Eos # (Auto) 0.1 Baso # (Auto) 0.01 Sodium 138 Potassium 5.0 Chloride 102 Carbon Dioxide 25 Anion Gap 16 BUN 22 H Creatinine 1.3 Est GFR ( Amer) > 60 Est GFR (Non-Af Amer) 54 Random Glucose 86 Fasting Glucose Calcium 9.2 Magnesium 2.4 H Total Bilirubin 0.7 AST 38 ALT 21 Alkaline Phosphatase 77 Total Protein 6.9 Albumin 4.0 Globulin 2.9 Albumin/Globulin Ratio 1.4 Triglycerides Cholesterol LDL Cholesterol Direct HDL Cholesterol TSH 3rd Generation 3.63 Urine Color Urine Appearance Urine pH Ur Specific [place] Urine Protein Urine Glucose (UA) Urine Ketones Urine Blood Urine Nitrate Urine Bilirubin Urine Urobilinogen Ur Leukocyte Esterase Urine Opiates Screen Urine Methadone Screen Ur Barbiturates Screen Ur Phencyclidine Scrn Ur Amphetamines Screen U Benzodiazepines Scrn U Oth Cocaine Metabols U Cannabinoids Screen Alcohol, Quantitative < 10 RPR 03/03/18 03/03/18 03/04/18 19:52 19:52 07:00 WBC RBC Hgb Hct MCV MCH MCHC RDW Plt Count MPV Gran % Lymph % (Auto) [place] % (Auto) Eos % (Auto) Baso % (Auto) Gran # Lymph # (Auto) [place] # (Auto) Eos # (Auto) Baso # (Auto) Sodium Potassium Chloride Carbon Dioxide Anion Gap BUN Creatinine Est GFR ( Amer) Est GFR (Non-Af Amer) Random Glucose Fasting Glucose Calcium Magnesium Total Bilirubin AST ALT Alkaline Phosphatase Total Protein Albumin Globulin Albumin/Globulin Ratio Triglycerides Cholesterol LDL Cholesterol Direct HDL Cholesterol TSH 3rd Generation Urine Color Light yellow Urine Appearance Clear Urine pH 6.0 Ur Specific [place] 1.015 Urine Protein Negative Urine Glucose (UA) Negative Urine Ketones 15 H Urine Blood Negative Urine Nitrate Negative Urine Bilirubin Small H Urine Urobilinogen 0.2 Ur Leukocyte Esterase Negative Urine Opiates Screen Negative Urine Methadone Screen Negative Ur Barbiturates Screen Negative Ur Phencyclidine Scrn Negative Ur Amphetamines Screen Negative U Benzodiazepines Scrn Negative U Oth Cocaine Metabols Negative U Cannabinoids Screen Negative Alcohol, Quantitative RPR Nonreactive 03/04/18 07:15 WBC RBC Hgb Hct MCV MCH MCHC RDW Plt Count MPV Gran % Lymph % (Auto) [place] % (Auto) Eos % (Auto) Baso % (Auto) Gran # Lymph # (Auto) [place] # (Auto) Eos # (Auto) Baso # (Auto) Sodium Potassium Chloride Carbon Dioxide Anion Gap BUN Creatinine Est GFR ( Amer) Est GFR (Non-Af Amer) Random Glucose Fasting Glucose 76 Calcium Magnesium Total Bilirubin AST ALT Alkaline Phosphatase Total Protein Albumin Globulin Albumin/Globulin Ratio Triglycerides 75 Cholesterol 151 LDL Cholesterol Direct 89 HDL Cholesterol 37 TSH 3rd Generation Urine Color Urine Appearance Urine pH Ur Specific [place] Urine Protein Urine Glucose (UA) Urine Ketones Urine Blood Urine Nitrate Urine Bilirubin Urine Urobilinogen Ur Leukocyte Esterase Urine Opiates Screen Urine Methadone Screen Ur Barbiturates Screen Ur Phencyclidine Scrn Ur Amphetamines Screen U Benzodiazepines Scrn U Oth Cocaine Metabols U Cannabinoids Screen Alcohol, Quantitative RPR Consultations:: List each consultation separately and include: 1. Reason for request. 2. Findings. 3. Follow-up Consultations: Dr. Appiah on 03/05/18 Dr. Cardenas on 03/06/18 Dr. Cardona on 03/05/18 Summary of Hospital Course include:: 1. Description of specific treatment plan utilized for patients during their course of treatmen. 2. Summarize the time- course for resolution of acute symptoms and/or regressed behaviors. 3. Describe issues identified and worked on during hospitalization. 4. Describe medication utilized. 5. Describe medical problems identified and treated. 6. Reassessment of suicide risk Summary of Hospital Course: Dr. Nelson's progress note 03/16/18 shortly patient is 72year old male with reported hx anxiety, depress ion possible PTSD, currently is under care or [facility], patient denied history of previous psychiatric admissions, denied history of suicidal attempts, patient was brought in by his son for evaluation of worsening of depression, uncontrolled anxiety, patient missed 2 appointments With his psychiatrist, as a result patient karly short on benzodiazepines as well as Nefazodone, pt was feeling depressed, hopeless, helpless, was not able to sleep, lost appetite, had passive wish to be . pt was seen next to the nursing station, pt is needy as per staff pt expecting all of his needs to be addressed at the moment of request, at times pt could be irritable and annoyed, but pt has good appetite, eats 100% meals, sleeps well, no agitation or aggression, pt is no anxious. pt reported that he feels "no good still, may I stay here longer?". pt said he is not ready to go he wanted to be "perfectly fine in order to take care of myself", seems to like to be in the hospital, likes to be taken care off. as per staff Patient is visible in the unit, participating in unit activities. patient tolerates medications well, no side effects observed or reported, aims 0, no EPS. Dr. Guerra's discharge note 03/17/18 I interviewed patient at bedside to assess continued stability for discharge. Patient is alert and well-oriented to month, year and circumstances. Eye contact is good. Patient feels improved and denies any suicidal thoughts or thoughts to harm others. Affect is anxious and reactive. He is not in distress and looking forward to organizing his f/u and aftercare plans. Patient denies hallucinations and is not responding to internal stimuli. Thought process is clear and coherent. Patient feels comfortable with discharge today and denies any new concerns. Denies acute discomfort or pain. Tolerating medications and denies any issues with them. Delusions and paranoia were not elicited on day of discharge. - Final Diagnosis (DSM 5) Condition upon Discharge: STABLE DSM 5: mood disorder nos r/o ptsd r/o withdrawals from the meds, better Disposition: HOME/ ROUTINE Follow-up Treatment Plan: Please refer to SW note Prescriptions/Medication Reconciliation: Docusate [Colace] 100 mg PO BID #14 cap Docusate Sodium/Sennosides A [Senokot S 50 MG-8.6 MG] 1 tab PO DAILY #7 tab Mirtazapine [Remeron] 30 mg PO HS #14 tab Zolpidem [Ambien] 5 mg PO HS #14 tab - Smoking Cessation Smoking Cessation Medication prescribed: No
== END 2018-03-17 13:08 | disposition home or self-care (01) | DRG 881 ==
LOC: ED 15:45 → ERH 21:33 → PSYC 22:17 → ERH 03-08 21:58 → PSYC 03-08 22:00
PROVIDERS: ADMIT Psychiatry & Neurology Psychiatry; ATTEND Psychiatry & Neurology Psychiatry
DX: F32.9 Major depressive disorder, single episode, unspecified (principal); F43.10 Post-traumatic stress disorder, unspecified; F41.9 Anxiety disorder, unspecified; F17.210 Nicotine dependence, cigarettes, uncomplicated; G47.00 Insomnia, unspecified; H40.9 Unspecified glaucoma; K59.00 Constipation, unspecified; Z94.7 Corneal transplant status

== ENCOUNTER 2018-03-20 06:27 | Inpatient (IN) | payer MEDICARE, OTHER ==
[2018-03-20] MEDS ORDERED: Sodium Chloride 0.9% 1,000 ML IV STA ×2 (07:07→10:10)
[2018-03-20 07:27] LABS: BASO # 0.03 K/mm3 (0.0-2.0); BASO % 0.4 % (0.0-3.0); EOS # 0.2 (0.0-0.7); EOS % 2.5 % (1.5-5.0); GRAN # 5.21 (1.4-6.5); GRAN % 67.7 % (50.0-68.0); HEMOGLOBIN 14.8 g/dL (14.0-18.0); LYMPH # 1.7 (1.2-3.4); LYMPH % 21.5 % (22.0-35.0); MEAN CELL VOLUME 86.9 fl (80.0-105.0); MEAN CORPUSCULAR HEMOGLOBIN 29.4 pg (25.0-35.0); MEAN CORPUSCULAR HGB CONC 33.9 g/dl (31.0-37.0); MEAN PLATELET VOLUME 12.1 fl (7.0-11.0); MONO # 0.6 (0.1-0.6); MONO % 7.9 % (1.0-6.0); RBC 5.03 10^6/uL (3.5-6.1); RED CELL DISTRIBUTION WIDTH 15.8 % (11.5-14.5); WHITE BLOOD COUNT 7.7 10^3/ul (4.5-11.0)
[2018-03-20 07:40] LABS: ACETAMINOPHEN < 10.0 ug/ml (10.0-20.0); SALICYLATE < 1 mg/dL (2.0-20.0)
[2018-03-20 07:45] LABS: INR 1.02; PROTHROMBIN TIME 11.7 SECONDS (9.4-12.5)
[2018-03-20 07:46] LABS: PARTIAL THROMBOPLASTIN TIME 31.6 Seconds (25.1-36.5)
--- NOTE | 2018-03-20 07:54 | ED PDOC ---
Arrival/HPI - General Chief Complaint: Altered Mental Status Time Seen by Provider: 03/20/18 07:06 Historian: Family (Son) - Critical Care Critical Care Minutes: 30 minutes - History of Present Illness Narrative History of Present Illness (Text): 03/20/18 07:15 72 year old male, whose past medical history includes anxiety, depression, possible PTSD, and chronic constipation presents with son via EMS, for evaluation, status post suspected overdose, 1 hour ago. Patient's son states he found him unresponsive with 5 empty pill bottles, which were recently filled. Son states he last saw patient at 21:00 on 03/19/18, and pill bottles seemed to be missing the appropriate amounts. Son informs empty medications found, dosages, number of tabs, and fill dates as follows: Zolpidem (Ambien) 5mg 14 tabs 03/17/18, Remeron 30mg 14 tabs 03/17/18, Remeron 45gm 30 tabs 03/18/18, Hydroxizine 25mg 30 tabs 03/18/18, Sennoside 30mg 7 tabs 03/18/18. Son informs he believes patient was trying to harm himself, and informs of his psychiatric history. HPI and ROS limited due to patient's mental state. PMD: Dr. Julien 03/20/18 11:41 Time/Duration: 1 hour Context: Home Past Medical History - Provider Review Nursing Documentation Reviewed: Yes - Infectious Disease Hx of Infectious Diseases: None - Cardiac Hx Cardiac Disorders: No Hx Hypertension: No - Pulmonary Hx Tuberculosis: No - Neurological HX Cerebrovascular Accident: No Hx Seizures: No - HEENT Hx Glaucoma: Yes - Renal Hx Renal Disorder: No - Endocrine/Metabolic Hx Endocrine Disorders: No - Hematological/Oncological Hx Cancer: No - Integumentary Hx Dermatological Disorder: No - Musculoskeletal/Rheumatological Hx Musculoskeletal Disorders: No - Gastrointestinal Hx Gastrointestinal Disorders: No - Genitourinary/Gynecological Hx Sexually Transmitted Diseases: No - Psychiatric Hx Anxiety: Yes Hx Depression: Yes Hx Substance Use: No - Surgical History Hx Eye Surgery: Yes - Anesthesia Hx Anesthesia: No Family/Social History - Physician Review Nursing Documentation Reviewed: Yes Family/Social History: No Known Family HX Smoking Status: Light Smoker < 10 Cigarettes Daily Hx Alcohol Use: No Hx Substance Use: No Allergies/Home Meds Allergies/Adverse Reactions: Allergies Penicillins Allergy (Verified 03/20/18 06:32) URTICARIA Home Medications: Home Meds Medication Instructions Recorded Confirmed Sennosides [Senna] 8.6 mg PO DAILY 03/20/18 03/20/18 hydrOXYzine Pamoate [Vistaril] 1 cap PO DAILY 03/20/18 03/20/18 Review of Systems - Review of Systems Systems not reviewed;Unavailable: Altered Mental Status Physical Exam Vital Signs Reviewed: Yes Vital Signs Temp Pulse Resp BP Pulse Ox 03/20/18 06:41 98.5 F 03/20/18 06:31 98 H 18 155/98 H 99 Temperature: Afebrile Blood Pressure: Hypertensive Pulse: Tachycardic Respiratory Rate: Normal Appearance: Positive for: Well-Appearing, Non-Toxic, Comfortable Pain Distress: None Mental Status: Positive for: Alert and Oriented X 3 - Systems Exam Head: Present: Atraumatic, Normocephalic Pupils: Present: PERRL, Other (4mm pupils) Extroacular Muscles: Present: EOMI Conjunctiva: Present: Normal Mouth: Present: Moist Mucous Membranes Neck: Present: Normal Range of Motion Respiratory/Chest: Present: Clear to Auscultation Cardiovascular: Present: Normal S1, S2, Tachycardic Abdomen: Present: Normal Bowel Sounds. No: Tenderness, Distention, Peritoneal Signs, Rebound, Guarding Back: Present: Normal Inspection Upper Extremity: Present: NORMAL PULSES, Other (Good reflexes, moves extremities to painful stimuli) Lower Extremity: Present: NORMAL PULSES, Other (Good reflexes, moves extremities to painful stimuli) Neurological: Present: GCS=15, CN II-XII Intact, Motor Func Grossly Intact, Normal Sensory Function Skin: Present: Warm, Dry, Normal Color. No: Rashes Psychiatric: Present: Suicidal Ideation, Other (Drowsy, responsive to verbal stimuli) Medical Decision Making ED Course and Treatment: 03/20/18 07:18 Impression: 72 year old male presents with suspected overdose of Hydroxyzine, Senna, Mirtazapine (Remeron) and Zolpidem (Ambien) since 9pm yesterday. Plan: -- Labs -- CT Head -- EKG -- Chest X-ray -- O2 therapy -- Urinalysis -- Reassess and disposition Prior Visits: Notes and results from previous visits were reviewed. Progress Notes: 03/20/18 07:15 Contacted poison control, who recommended supportive care and observation for 4- 6 hours. Psych PES evaluation was called. 03/20/18 07:20 EKG Reviewed, shows: Tachycardia @ 106 bpm QRS duration 82ms QT/QTc 338/448ms 03/20/18 07:21 Chest X-ray reviewed, shows: No acute findings. 03/20/18 09:30 CT Head reviewed, shows: No acute intracranial findings 03/20/18 10:38 Patient's HR increased to 120-130's and BP with increase. Afebrile. 99F Rectal. Continue IVF. Consider sympathemetic response to hydroxyzine. Ativan 1mg IV given. Poison Control Ede called back to review labs. Agrees with current management. 03/20/18 11:[address] Armando, ICU, who will admit patient to the ICU. Case discussed with Dr. Sun who admits to Dr. Julien who will admit patient to his service. - Lab Interpretations Lab Results: 03/20/18 06:35 Lab Results 03/20/18 06:57: POC Glucose (mg/dL) 80 03/20/18 06:35: Alcohol, Quantitative < 10 03/20/18 06:35: Salicylates < 1 L, Acetaminophen < 10.0 L 03/20/18 06:35: WBC 7.7, RBC 5.03, Hgb 14.8, Hct 43.7, MCV 86.9, MCH 29.4, MCHC 33.9, RDW 15.8 H, Plt Count 193, MPV 12.1 H, Gran % 67.7, Lymph % (Auto) 21.5 L, [place] % (Auto) 7.9 H, Eos % (Auto) 2.5, Baso % (Auto) 0.4, Gran # 5.21, Lymph # (Auto) 1.7, [place] # (Auto) 0.6, Eos # (Auto) 0.2, Baso # (Auto) 0.03 - RAD Interpretation Radiology Orders: 03/20/18 07:07 CHEST PORTABLE [RAD] Stat - Medication Orders Current Medication Orders: Sodium Chloride (Sodium Chloride 0.9%) 1,000 mls @ 999 mls/hr IV .Q1H1M STA Stop: 10/19/18 08:07 Last Admin: 03/20/18 07:26 Dose: 999 mls/hr eMAR Start Stop Document 03/20/18 07:26 RABIA (Rec: 03/20/18 07:26 RABIA [id number]) Intravenous Solution Start Date 03/20/18 Start Time 07:26 End Date 03/20/18 End time 08:27 Total Infusion Time 61 - Scribe Statement The provider has reviewed the documentation as recorded by the Demetriusiblauren Alicea Provider Scribe Attestation: All medical record entries made by the Scribe were at my direction and person ally dictated by me. I have reviewed the chart and agree that the record accurately reflects my personal performance of the history, physical exam, medical decision making, and the department course for this patient. I have also personally directed, reviewed, and agree with the discharge instructions and disposition. Disposition/Present on Arrival - Present on Arrival Any Indicators Present on Arrival: No History of DVT/PE: No History of Uncontrolled Diabetes: No Urinary Catheter: No History of Decub. Ulcer: No History Surgical Site Infection Following: None - Disposition Have Diagnosis and Disposition been Completed?: Yes Diagnosis: Overdose Disposition: HOSPITALIZED Disposition Time: 11:47 Patient Plan: ICU Condition: CRITICAL Referrals: Dinorah Julien MD [Primary Care Provider] - Follow up with primary Forms: [employer] ([place]ian)
[2018-03-20 07:55] LABS: ALB/GLOB RATIO 1.2 (1.1-1.8); ALBUMIN 3.7 g/dL (3.0-4.8); ALT/SGPT 34 U/L (7-56); AST/SGOT 21 U/L (17-59); BLOOD UREA NITROGEN 16 mg/dL (7-21); GFR NON-AFRICAN AMERICAN > 60
[2018-03-20 08:24] LABS: VENOUS BLOOD GAS BASE EXCESS -2.2 mmol/L (0.0-2.0); VENOUS BLOOD GAS PO2 41 mm/Hg (30-55); VENOUS BLOOD PH 7.34 (7.32-7.43)
[2018-03-20 08:30] LABS: URINE APPEARANCE CLEAR (CLEAR); URINE BILIRUBIN NEGATIVE (NEGATIVE); URINE BLOOD NEGATIVE (NEGATIVE); URINE COLOR YELLOW (YELLOW); URINE GLUCOSE (UA) NEGATIVE (NEGATIVE); URINE LEUKOCYTE ESTERASE NEGATIVE Leu/uL (NEGATIVE); URINE PROTEIN NEGATIVE mg/dL (<30 mg/dL); URINE UROBILINOGEN 0.2 E.U./dL (<1 E.U./dL)
[2018-03-20 08:41] LABS: OPIATES, UR NEGATIVE (NEGATIVE); PHENCYCLIDINE, UR NEGATIVE (NEGATIVE)
[2018-03-20 08:44] LABS: BARBITURATES, UR NEGATIVE (NEGATIVE); BENZODIAZEPINES, UR NEGATIVE (NEGATIVE)
--- NOTE | 2018-03-20 09:25 | CT ---
Date of service: 03/20/2018 PROCEDURE: CT HEAD WITHOUT CONTRAST. HISTORY: altered from overdose, unk trauma COMPARISON: None available. TECHNIQUE: Axial computed tomography images were obtained through the head/brain without intravenous contrast. Radiation dose: Total exam DLP = 920.73 mGy-cm. This CT exam was performed using one or more of the following dose reduction techniques: Automated exposure control, adjustment of the mA and/or kV according to patient size, and/or use of iterative reconstruction technique. FINDINGS: HEMORRHAGE: No intracranial hemorrhage. BRAIN: No mass effect or edema. No atrophy or chronic microvascular ischemic changes. VENTRICLES: Unremarkable. No hydrocephalus. CALVARIUM: Unremarkable. PARANASAL SINUSES: Unremarkable as visualized. No significant inflammatory changes. MASTOID AIR CELLS: Unremarkable as visualized. No inflammatory changes. OTHER FINDINGS: None. IMPRESSION: No acute intracranial findings
--- NOTE | 2018-03-20 09:45 | CARD ---
APPROVED REPORT Date of service: 03/20/2018 EKG Measurement Heart [id number] <Conclusion> Sinus tachycardia Otherwise normal ECG
--- NOTE | 2018-03-20 10:11 | RAD ---
Date of service: 03/20/2018 HISTORY: overdose COMPARISON: 03/03/2018 FINDINGS: LUNGS: No active pulmonary disease. PLEURA: No significant pleural effusion identified, no pneumothorax apparent. CARDIOVASCULAR: No atherosclerotic calcification present Normal. OSSEOUS STRUCTURES: No significant abnormalities. VISUALIZED UPPER ABDOMEN: Normal. OTHER FINDINGS: None. IMPRESSION: No active disease.
[2018-03-20] MEDS: Sodium Chloride 0.9% 1,000 ML IV SCH ×2 (12:18→18:32)
--- NOTE | 2018-03-20 12:19 | CP.PCM.CON ---
History of Present Illness - History of Present Illness History of Present Illness: MICU CONSULT NOTE HPI Patient is 72yo male with PMHx of psych disorder, depression, anxiety, presents from home after being found unresponsive by the son, Scooby Fermin Jr, who provided most of the history. Pt's son states he found unresponsive with 5 empty pill bottles, which were recently filled: Zolpidem (Ambien) 5mg 14 tabs 03/02 11/17, Remeron 30mg 14 tabs 03/17/18, Remeron 45gm 30 tabs 03/18/18, Hydroxizine 25mg 30 tabs 03/18/18, Sennoside 30mg 7 tabs 03/18/18. Pt was last seen normal at 2100 03/19/18. Pt is currently drowsy but wakes up to painful and verbal stimuli, opens eyes, does not converse. Pmhx Depression, Anxiety PSHx NONE Meds as per EMR Allergies PCN ROS cannot obtain FHx NC Social smoker, denies etoh, drug use as per son Review of Systems - Review of Systems Review of Systems: as per HPI Past Patient History - Infectious Disease Hx of Infectious Diseases: None - Past Social History Smoking Status: Light Smoker < 10 Cigarettes Daily - CARDIAC Hx Cardiac Disorders: No Hx Hypertension: No - PULMONARY Hx Tuberculosis: No - NEUROLOGICAL HX Cerebrovascular Accident: No Hx Seizures: No - HEENT Hx Glaucoma: Yes - RENAL Hx Chronic Kidney Disease: No - ENDOCRINE/METABOLIC Hx Endocrine Disorders: No - HEMATOLOGICAL/ONCOLOGICAL Hx Cancer: No - INTEGUMENTARY Hx Dermatological Problems: No - MUSCULOSKELETAL/RHEUMATOLOGICAL Hx Musculoskeletal Disorders: No - GASTROINTESTINAL Hx Gastrointestinal Disorders: No - GENITOURINARY/GYNECOLOGICAL Hx Sexually Transmitted Disorders: No - PSYCHIATRIC Hx Anxiety: Yes Hx Depression: Yes Hx Substance Use: No - SURGICAL HISTORY Hx Eye Surgery: Yes - ANESTHESIA Hx Anesthesia: No Meds Allergies/Adverse Reactions: Allergies Allergy/AdvReac Type Severity Reaction Status Date / Time Penicillins Allergy URTICARIA Verified 03/20/18 06:32 Physical Exam - Constitutional Appears: Non-toxic, No Acute Distress, Older Than Stated Age, Confused, Cachectic - Head Exam Head Exam: NORMAL INSPECTION - Eye Exam Eye Exam: Normal appearance - ENT Exam ENT Exam: Mucous Membranes Dry - Respiratory Exam Respiratory Exam: Clear to Auscultation Bilateral, NORMAL BREATHING PATTERN - Cardiovascular Exam Cardiovascular Exam: REGULAR RHYTHM, +S1, +S2 - GI/Abdominal Exam GI & Abdominal Exam: Normal Bowel Sounds, Soft - Extremities Exam Extremities exam: Positive for: normal inspection - Neurological Exam Neurological exam: Altered - Skin Skin Exam: Normal Color, Warm Results - Vital Signs Recent Vital Signs: Last Vital Signs Temp 99.1 F 03/20/18 10:24 Pulse 129 H 03/20/18 11:59 Resp 18 03/20/18 11:59 BP 139/80 03/20/18 11:59 Pulse Ox 95 03/20/18 11:59 - Labs Result Diagrams: 03/20/18 06:35 03/20/18 06:35 Labs: Laboratory Results - last 24 hr 03/20/18 03/20/18 03/20/18 06:35 06:35 06:35 WBC 7.7 RBC 5.03 Hgb 14.8 Hct 43.7 MCV 86.9 MCH 29.4 MCHC 33.9 RDW 15.8 H Plt Count 193 MPV 12.1 H Gran % 67.7 Lymph % (Auto) 21.5 L [place] % (Auto) 7.9 H Eos % (Auto) 2.5 Baso % (Auto) 0.4 Gran # 5.21 Lymph # (Auto) 1.7 [place] # (Auto) 0.6 Eos # (Auto) 0.2 Baso # (Auto) 0.03 PT INR APTT pO2 VBG pH VBG pCO2 VBG HCO3 VBG Total CO2 VBG O2 Sat (Calc) VBG Base Excess VBG Potassium Glucose Lactate FiO2 Sodium 142 Potassium 4.1 Chloride 108 H Carbon Dioxide 26 Anion Gap 12 BUN 16 Creatinine 1.0 Est GFR ( Amer) > 60 Est GFR (Non-Af Amer) > 60 POC Glucose (mg/dL) Random Glucose 86 Calcium 9.0 Magnesium 2.5 H Total Bilirubin 0.6 AST 21 ALT 34 Alkaline Phosphatase 79 Total Creatine Kinase 62 Total Protein 6.9 Albumin 3.7 Globulin 3.1 Albumin/Globulin Ratio 1.2 Venous Blood Potassium Urine Color Urine Appearance Urine pH Ur Specific [place] Urine Protein Urine Glucose (UA) Urine Ketones Urine Blood Urine Nitrate Urine Bilirubin Urine Urobilinogen Ur Leukocyte Esterase Salicylates < 1 L Urine Opiates Screen Urine Methadone Screen Acetaminophen < 10.0 L Ur Barbiturates Screen Ur Phencyclidine Scrn Ur Amphetamines Screen U Benzodiazepines Scrn U Oth Cocaine Metabols U Cannabinoids Screen Alcohol, Quantitative 03/20/18 03/20/18 03/20/18 06:35 06:35 06:57 WBC RBC Hgb Hct MCV MCH MCHC RDW Plt Count MPV Gran % Lymph % (Auto) [place] % (Auto) Eos % (Auto) Baso % (Auto) Gran # Lymph # (Auto) [place] # (Auto) Eos # (Auto) Baso # (Auto) PT 11.7 INR 1.02 APTT 31.6 pO2 VBG pH VBG pCO2 VBG HCO3 VBG Total CO2 VBG O2 Sat (Calc) VBG Base Excess VBG Potassium Glucose Lactate FiO2 Sodium Potassium Chloride Carbon Dioxide Anion Gap BUN Creatinine Est GFR ( Amer) Est GFR (Non-Af Amer) POC Glucose (mg/dL) 80 Random Glucose Calcium Magnesium Total Bilirubin AST ALT Alkaline Phosphatase Total Creatine Kinase Total Protein Albumin Globulin Albumin/Globulin Ratio Venous Blood Potassium Urine Color Urine Appearance Urine pH Ur Specific [place] Urine Protein Urine Glucose (UA) Urine Ketones Urine Blood Urine Nitrate Urine Bilirubin Urine Urobilinogen Ur Leukocyte Esterase Salicylates Urine Opiates Screen Urine Methadone Screen Acetaminophen Ur Barbiturates Screen Ur Phencyclidine Scrn Ur Amphetamines Screen U Benzodiazepines Scrn U Oth Cocaine Metabols U Cannabinoids Screen Alcohol, Quantitative < 10 03/20/18 03/20/18 03/20/18 07:50 07:50 07:50 WBC RBC Hgb Hct MCV MCH MCHC RDW Plt Count MPV Gran % Lymph % (Auto) [place] % (Auto) Eos % (Auto) Baso % (Auto) Gran # Lymph # (Auto) [place] # (Auto) Eos # (Auto) Baso # (Auto) PT INR APTT pO2 41 VBG pH 7.34 VBG pCO2 44.0 VBG HCO3 23.7 VBG Total CO2 25.1 VBG O2 Sat (Calc) 78.0 H VBG Base Excess -2.2 L VBG Potassium 3.9 Glucose 101 Lactate 1.2 FiO2 21.0 Sodium 140.0 Potassium Chloride 111.0 H Carbon Dioxide Anion Gap BUN Creatinine Est GFR ( Amer) Est GFR (Non-Af Amer) POC Glucose (mg/dL) Random Glucose Calcium Magnesium Total Bilirubin AST ALT Alkaline Phosphatase Total Creatine Kinase Total Protein Albumin Globulin Albumin/Globulin Ratio Venous Blood Potassium 3.9 Urine Color Yellow Urine Appearance Clear Urine pH 6.[address] 1.025 Urine Protein Negative Urine Glucose (UA) Negative Urine Ketones Negative Urine Blood Negative Urine Nitrate Negative Urine Bilirubin Negative Urine Urobilinogen 0.2 Ur Leukocyte Esterase Negative Salicylates Urine Opiates Screen Negative Urine Methadone Screen Negative Acetaminophen Ur Barbiturates Screen Negative Ur Phencyclidine Scrn Negative Ur Amphetamines Screen Negative U Benzodiazepines Scrn Negative U Oth Cocaine Metabols Negative U Cannabinoids Screen Negative Alcohol, Quantitative - Imaging and Cardiology Chest x-ray Status: Image reviewed by me, Report reviewed by me Assessment & Plan - Assessment and Plan (Free Text) Assessment: 72yo male with MPhx of depression, anxiety, presents with what appears to be attempted suicide attempt with Zolpidem (Ambien) 5mg Remeron, Hydroxizine, Sennoside Suicide Attempt Drug overdose AMS Dehydration - currently afebrile, BP stable, comfortable in NAD, drowsy, responds to verbal and painful stimuli, non verbal, protecting airway, sat 94% on room air - labs, imaging,chart reviewed - EKG QTc 448, CXR clear, labs wnl, Utox negative - poison control contacted by ER, recs noted Recommend: - supp o2 as needed, duonebs PRN, IS, nicotine patch - Panculture, UCx, BCx, check procal - BP control - Ativan PRN - follow up poison control - Psych eval - 1:1 monitoring - Zofranm PRN - IVF, NS - GI ppx, PPI - DVT ppx - admit to MICU
[2018-03-20 14:01] VITALS: BMI 18.8
[2018-03-20] MEDS ORDERED: Pneumococcal 23-Valent Vaccine IM ONE (14:01)
[2018-03-20] MEDS ORDERED: Influenza Vaccine 60 mcg/0.5 mL SYR (4YR UP) IM ONE (14:01)
--- NOTE | 2018-03-20 15:18 | CP.PCM.CON ---
<Parker Connelly - Last Filed: 03/20/18 15:33> History of Present Illness - History of Present Illness History of Present Illness: Otf Connelly PGY2 - GI Consult Note Consulted Reason: Coffee ground emesis HPI: Patient is a 72 year old male with past medical history of depression and anxiety who presents to [facility] ED from home after being found unresponsive likely secondary to ingestion of a number of medications in a suspected attempt to harm himself. According to ED notes patient was suspected to have ingested Zolpidem (Ambien) 5mg 14 tabs last filled 03/17/18, Remeron 30mg 14 tabs last filled 03/17/18, Remeron 45gm 30 tabs last filled 03/18/18, Hydroxizine 25mg 30 tabs last filled 03/18/18, Sennoside 30mg 7 tabs last filled 03/18/18. Patient was noted to be drowsy on initial presentation. During interview process patient is noted to have limited participation with questioning secondary to confusion and drowsiness. Poison control was contacted for patient's case with with recommendation for supportive care. After a few hours of being in ED receiving supportive care patient was noted to have single episode of coffee ground emesis. Patient family who was at bedside indicates 3-4 cups worth of emesis. Dr. Street, ED physician, indicates 1 cup amount of emesis. Patient H/H on admission was 14.8/43.7. Repeat testing is pending. Patient family indicates no previous episode of coffee ground emesis, peptic ulcer disease, previous GI disease. There is no report or mention from family or chart of other materials ingested along with the medication. Patient is agitated and drowsy on interview, ROS is limited. PMH: Depression, Anxiety PSH: Denies SOCHX: Tobacco: Current every day smoker, ETOH: Denies, ID: Denies FMHx: Non contributory ALL: PCN MEDS: as per EMR PMD: Dr. Julien Review of Systems - Review of Systems Systems not reviewed;Unavailable: Uncooperative Past Patient History - Infectious Disease Hx of Infectious Diseases: None - Past Social History Smoking Status: Former Smoker Alcohol: None Drugs: Denies - CARDIAC Hx Cardiac Disorders: Yes Hx Hypercholesterolemia: Yes (slightly elevated no meds) Hx Hypertension: No - PULMONARY Hx Respiratory Disorders: No - NEUROLOGICAL Hx Neurological Disorder: No - HEENT Hx HEENT Problems: Yes Hx Cataracts: (son uncertain) Hx Glaucoma: Yes (both eyes) Other/Comment: corneal implant left yey 30 or 40 years ago as per son, cloud over left eye - RENAL Hx Chronic Kidney Disease: No - ENDOCRINE/METABOLIC Hx Endocrine Disorders: No - HEMATOLOGICAL/ONCOLOGICAL Hx Blood Disorders: No - INTEGUMENTARY Hx Dermatological Problems: Yes Other/Comment: right arm skin tear covered with optifoam dressing, skin tear davide to right palm, dry scab to left hand, small red dry round 0.2cm to 5th toe right foot, dry thick toenails, dry skin to toees,red scratch junior right ankle, small red spots to lle - MUSCULOSKELETAL/RHEUMATOLOGICAL Hx Falls: Yes (found on floor today by son) - GASTROINTESTINAL Hx Gastrointestinal Disorders: Yes (chronic constipation) - GENITOURINARY/GYNECOLOGICAL Hx Genitourinary Disorders: No - PSYCHIATRIC Hx Substance Use: No - SURGICAL HISTORY Hx Surgeries: Yes (left eye corneal implant 30/40 yrs ago) - ANESTHESIA Hx Anesthesia: No Meds Allergies/Adverse Reactions: Allergies Allergy/AdvReac Type Severity Reaction Status Date / Time Penicillins Allergy URTICARIA Verified 03/20/18 06:32 - Medications Medications: Current Medications Enoxaparin Sodium (Lovenox) 40 mg SC DAILY [facility]; Protocol Sodium Chloride (Sodium Chloride 0.9%) 1,000 mls @ 100 mls/hr IV .Q10H [facility] Last Admin: 03/20/18 12:18 Dose: 100 mls/hr Lorazepam (Ativan) 2 mg IVP Q4H PRN; Protocol PRN Reason: Anxiety Pantoprazole Sodium (Protonix Inj) 40 mg IVP BID [facility] Physical Exam - Constitutional Appears: Agitated, Confused - Head Exam Head Exam: ATRAUMATIC, NORMOCEPHALIC - Eye Exam Eye Exam: EOMI - Respiratory Exam Respiratory Exam: Clear to Auscultation Bilateral, NORMAL BREATHING PATTERN - Cardiovascular Exam Cardiovascular Exam: Tachycardia, REGULAR RHYTHM, +S1, +S2 - GI/Abdominal Exam GI & Abdominal Exam: Soft, Tenderness (lower abdomen R>L). absent: Mass, Rebound, Rigid - Rectal Exam Rectal Exam: Hemorrhoids (external and internal ). absent: Black Stool, Bloody Stool Additional comments: No stool on exam, good rectal tone - Extremities Exam Extremities exam: Positive for: normal inspection - Neurological Exam Neurological exam: Alert - Psychiatric Exam Psychiatric exam: Anxious - Skin Skin Exam: Dry, Warm Results - Vital Signs Recent Vital Signs: Last Vital Signs Temp 99.1 F 03/20/18 10:24 Pulse 137 H 03/20/18 13:31 Resp 18 03/20/18 13:31 BP 139/80 03/20/18 11:59 Pulse Ox 95 03/20/18 11:59 - Labs Result Diagrams: 03/20/18 06:35 03/20/18 06:35 Labs: Laboratory Results - last 24 hr 03/20/18 03/20/18 03/20/18 06:35 06:35 06:35 WBC 7.7 RBC 5.03 Hgb 14.8 Hct 43.7 MCV 86.9 MCH 29.4 MCHC 33.9 RDW 15.8 H Plt Count 193 MPV 12.1 H Gran % 67.7 Lymph % (Auto) 21.5 L [place] % (Auto) 7.9 H Eos % (Auto) 2.5 Baso % (Auto) 0.4 Gran # 5.21 Lymph # (Auto) 1.7 [place] # (Auto) 0.6 Eos # (Auto) 0.2 Baso # (Auto) 0.03 PT INR APTT pO2 VBG pH VBG pCO2 VBG HCO3 VBG Total CO2 VBG O2 Sat (Calc) VBG Base Excess VBG Potassium Glucose Lactate FiO2 Sodium 142 Potassium 4.1 Chloride 108 H Carbon Dioxide 26 Anion Gap 12 BUN 16 Creatinine 1.0 Est GFR ( Amer) > 60 Est GFR (Non-Af Amer) > 60 POC Glucose (mg/dL) Random Glucose 86 Calcium 9.0 Magnesium 2.5 H Total Bilirubin 0.6 AST 21 ALT 34 Alkaline Phosphatase 79 Total Creatine Kinase 62 Total Protein 6.9 Albumin 3.7 Globulin 3.1 Albumin/Globulin Ratio 1.2 Venous Blood Potassium Urine Color Urine Appearance Urine pH Ur Specific [place] Urine Protein Urine Glucose (UA) Urine Ketones Urine Blood Urine Nitrate Urine Bilirubin Urine Urobilinogen Ur Leukocyte Esterase Salicylates < 1 L Urine Opiates Screen Urine Methadone Screen Acetaminophen < 10.0 L Ur Barbiturates Screen Ur Phencyclidine Scrn Ur Amphetamines Screen U Benzodiazepines Scrn U Oth Cocaine Metabols U Cannabinoids Screen Alcohol, Quantitative Blood Type Blood Type Confirm Antibody Screen Crossmatch BBK History Checked 03/20/18 03/20/18 03/20/18 06:35 06:35 06:57 WBC RBC Hgb Hct MCV MCH MCHC RDW Plt Count MPV Gran % Lymph % (Auto) [place] % (Auto) Eos % (Auto) Baso % (Auto) Gran # Lymph # (Auto) [place] # (Auto) Eos # (Auto) Baso # (Auto) PT 11.7 INR 1.02 APTT 31.6 pO2 VBG pH VBG pCO2 VBG HCO3 VBG Total CO2 VBG O2 Sat (Calc) VBG Base Excess VBG Potassium Glucose Lactate FiO2 Sodium Potassium Chloride Carbon Dioxide Anion Gap BUN Creatinine Est GFR ( Amer) Est GFR (Non-Af Amer) POC Glucose (mg/dL) 80 Random Glucose Calcium Magnesium Total Bilirubin AST ALT Alkaline Phosphatase Total Creatine Kinase Total Protein Albumin Globulin Albumin/Globulin Ratio Venous Blood Potassium Urine Color Urine Appearance Urine pH Ur Specific [place] Urine Protein Urine Glucose (UA) Urine Ketones Urine Blood Urine Nitrate Urine Bilirubin Urine Urobilinogen Ur Leukocyte Esterase Salicylates Urine Opiates Screen Urine Methadone Screen Acetaminophen Ur Barbiturates Screen Ur Phencyclidine Scrn Ur Amphetamines Screen U Benzodiazepines Scrn U Oth Cocaine Metabols U Cannabinoids Screen Alcohol, Quantitative < 10 Blood Type Blood Type Confirm Antibody Screen Crossmatch BBK History Checked 03/20/18 03/20/18 03/20/18 07:50 07:50 07:50 WBC RBC Hgb Hct MCV MCH MCHC RDW Plt Count MPV Gran % Lymph % (Auto) [place] % (Auto) Eos % (Auto) Baso % (Auto) Gran # Lymph # (Auto) [place] # (Auto) Eos # (Auto) Baso # (Auto) PT INR APTT pO2 41 VBG pH 7.34 VBG pCO2 44.0 VBG HCO3 23.7 VBG Total CO2 25.1 VBG O2 Sat (Calc) 78.0 H VBG Base Excess -2.2 L VBG Potassium 3.9 Glucose 101 Lactate 1.2 FiO2 21.0 Sodium 140.0 Potassium Chloride 111.0 H Carbon Dioxide Anion Gap BUN Creatinine Est GFR ( Amer) Est GFR (Non-Af Amer) POC Glucose (mg/dL) Random Glucose Calcium Magnesium Total Bilirubin AST ALT Alkaline Phosphatase Total Creatine Kinase Total Protein Albumin Globulin Albumin/Globulin Ratio Venous Blood Potassium 3.9 Urine Color Yellow Urine Appearance Clear Urine pH 6.0 Ur Specific [place] 1.025 Urine Protein Negative Urine Glucose (UA) Negative Urine Ketones Negative Urine Blood Negative Urine Nitrate Negative Urine Bilirubin Negative Urine Urobilinogen 0.2 Ur Leukocyte Esterase Negative Salicylates Urine Opiates Screen Negative Urine Methadone Screen Negative Acetaminophen Ur Barbiturates Screen Negative Ur Phencyclidine Scrn Negative Ur Amphetamines Screen Negative U Benzodiazepines Scrn Negative U Oth Cocaine Metabols Negative U Cannabinoids Screen Negative Alcohol, Quantitative Blood Type Blood Type Confirm Antibody Screen Crossmatch BBK History Checked 03/20/18 03/20/18 12:23 13:00 WBC RBC Hgb Hct MCV MCH MCHC RDW Plt Count MPV Gran % Lymph % (Auto) [place] % (Auto) Eos % (Auto) Baso % (Auto) Gran # Lymph # (Auto) [place] # (Auto) Eos # (Auto) Baso # (Auto) PT INR APTT pO2 VBG pH VBG pCO2 VBG HCO3 VBG Total CO2 VBG O2 Sat (Calc) VBG Base Excess VBG Potassium Glucose Lactate FiO2 Sodium Potassium Chloride Carbon Dioxide Anion Gap BUN Creatinine Est GFR ( Amer) Est GFR (Non-Af Amer) POC Glucose (mg/dL) Random Glucose Calcium Magnesium Total Bilirubin AST ALT Alkaline Phosphatase Total Creatine Kinase Total Protein Albumin Globulin Albumin/Globulin Ratio Venous Blood Potassium Urine Color Urine Appearance Urine pH Ur Specific [place] Urine Protein Urine Glucose (UA) Urine Ketones Urine Blood Urine Nitrate Urine Bilirubin Urine Urobilinogen Ur Leukocyte Esterase Salicylates Urine Opiates Screen Urine Methadone Screen Acetaminophen Ur Barbiturates Screen Ur Phencyclidine Scrn Ur Amphetamines Screen U Benzodiazepines Scrn U Oth Cocaine Metabols U Cannabinoids Screen Alcohol, Quantitative Blood Type O NEGATIVE Blood Type Confirm O NEGATIVE Antibody Screen Negative Crossmatch See Detail BBK History Checked No verified bt Assessment & Plan - Assessment and Plan (Free Text) Assessment: 72 year old male with past medical history of depression and anxiety who pre sents to [facility] ED from home after being found unresponsive likely secondary to ingestion of Zolpidem (Ambien) 5mg 14 tabs, Remeron 30mg 14 tabs, Remeron 45gm 30 tabs, Hydroxizine 25mg 30 tabs, Sennoside 30mg 7 tabs. Poison control has been contacted with recommendations for supportive care. Patient noted to have episode of coffee ground emesis in ED before transfer to ICU. Patient currently tachycardic and hypertensive Plan: Coffee Ground Emesis Multiple pill ingestion Guaic positive stool in ED Tachycardia Hypertensive Depression Anxiety - No further reported episodes of coffee ground emesis, rectal exam with no blood on exam - H/H on admission noted to be 14.8/43.7 - Repeat H/H pending - Monitor H/H, transfuse for goal Hgb >7 - Continue PPI BID at this time - Supportive care for multiple pill ingestion as per ICU team and poison control - Patient likely tachycardic and hypertensive secondary to ingestion of pharmacy and agitation - No plans for emergent endoscopy as patient appears stable - Further recommendations as per Dr. Cano - Date & Time Date: 03/20/18 Time: 15:22 <Ita Cano V - Last Filed: 03/22/18 21:09> Meds - Medications Medications: Current Medications Dorzolamide/Timolol (Cosopt 2%-0.5% Opht) 1 drop OU BID [facility] Enoxaparin Sodium (Lovenox) 40 mg SC DAILY [facility]; Protocol Last Admin: 03/21/18 11:13 Dose: 40 mg Lactated Ringer's (Lactated Ringer's) 1,000 mls @ 100 mls/hr IV .Q10H [facility] Last Admin: 03/21/18 07:53 Dose: 100 mls/hr Lorazepam (Ativan) 2 mg IVP Q4H PRN; Protocol PRN Reason: Anxiety Last Admin: 03/21/18 21:26 Dose: 2 mg Pantoprazole Sodium (Protonix Inj) 40 mg IVP BID [facility] Last Admin: 03/21/18 11:13 Dose: 40 mg Sennosides (Senokot Tab) 8.6 mg PO DAILY [facility] Last Admin: 03/21/18 21:26 Dose: 8.6 mg Results - Vital Signs Recent Vital Signs: Last Vital Signs Temp 98.0 F 03/21/18 08:00 Pulse 69 03/21/18 18:00 Resp 20 03/21/18 18:00 BP 113/46 L 03/21/18 18:00 Pulse Ox 96 03/21/18 12:00 - Labs Result Diagrams: 03/22/18 05:00 03/22/18 05:00 Labs: Laboratory Results - last 24 hr 03/21/18 03/21/18 05:00 05:00 WBC 9.4 D RBC 4.13 Hgb 11.9 L Hct 35.2 L MCV 85.2 MCH 28.8 MCHC 33.8 RDW 15.6 H Plt Count 163 MPV 12.0 H Gran % 87.3 H Lymph % (Auto) 6.0 L [place] % (Auto) 6.6 H Eos % (Auto) 0.0 L Baso % (Auto) 0.1 Gran # 8.19 H Lymph # (Auto) 0.6 L [place] # (Auto) 0.6 Eos # (Auto) 0.0 Baso # (Auto) 0.01 Sodium 141 Potassium 3.0 L Chloride 114 H Carbon Dioxide 21 Anion Gap 10 BUN 14 Creatinine 1.0 Est GFR ( Amer) > 60 Est GFR (Non-Af Amer) > 60 Random Glucose 113 H Calcium 7.7 L Phosphorus 2.0 L Magnesium 2.1 Total Bilirubin 0.6 AST 23 ALT 28 Alkaline Phosphatase 64 Total Protein 5.6 L Albumin 2.9 L Globulin 2.7 Albumin/Globulin Ratio 1.1 Attending/Attestation - Attestation I have personally seen and examined this patient.: Yes I have fully participated in the care of the patient.: Yes I have reviewed all pertinent clinical information: Yes Notes (Text): This is a delayed addendum to GI consult report dictated by the Nurse Substance Abuse.The patient was seen and evaluated earlier. Medical records, lab st udies, imagings were reviewed. Last 24 hours events reviewed. Agreed with the above treatment plan as outlined in Nurse Substance Abuse 's notes with the addition of the following This patient was admitted with drug overdose Had an episode of coffee ground vomitous On examination abdomen soft BS normal High dose PPI recommend Followup HCT 03/21/18 21:43
[2018-03-20 16:40] LABS: MEAN CELL VOLUME 85.8 fl (80.0-105.0); MEAN CORPUSCULAR HEMOGLOBIN 29.2 pg (25.0-35.0); MEAN PLATELET VOLUME 11.5 fl (7.0-11.0); RBC 4.45 10^6/uL (3.5-6.1); RED CELL DISTRIBUTION WIDTH 15.5 % (11.5-14.5); WHITE BLOOD COUNT 13.6 10^3/ul (4.5-11.0)
[2018-03-20 17:00] LABS: ALB/GLOB RATIO 1.1 (1.1-1.8); ALT/SGPT 31 U/L (7-56); AST/SGOT 18 U/L (17-59); BLOOD UREA NITROGEN 13 mg/dL (7-21); CALCIUM 7.7 mg/dL (8.4-10.5); GFR NON-AFRICAN AMERICAN > 60
--- NOTE | 2018-03-20 17:11 | CARD ---
APPROVED REPORT Date of service: 03/20/2018 EKG Measurement Heart [id number] <Conclusion> Sinus tachycardia Nonspecific ST abnormality Abnormal ECG
[2018-03-21] MEDS: Sodium Chloride 0.9% 1,000 ML IV SCH ×2 (00:39→05:03)
[2018-03-21] MEDS ORDERED: DiphenhydrAMINE 50 mg/ml Inj IVP ONE (04:53)
[2018-03-21 05:44] LABS: BASO # 0.01 K/mm3 (0.0-2.0); BASO % 0.1 % (0.0-3.0); GRAN # 8.19 (1.4-6.5); GRAN % 87.3 % (50.0-68.0); HEMOGLOBIN 11.9 g/dL (14.0-18.0); LYMPH # 0.6 (1.2-3.4); MEAN CELL VOLUME 85.2 fl (80.0-105.0); MEAN CORPUSCULAR HEMOGLOBIN 28.8 pg (25.0-35.0); MEAN CORPUSCULAR HGB CONC 33.8 g/dl (31.0-37.0); MONO # 0.6 (0.1-0.6); MONO % 6.6 % (1.0-6.0); RBC 4.13 10^6/uL (3.5-6.1); RED CELL DISTRIBUTION WIDTH 15.6 % (11.5-14.5); WHITE BLOOD COUNT 9.4 10^3/ul (4.5-11.0)
[2018-03-21 05:53] LABS: ALB/GLOB RATIO 1.1 (1.1-1.8); ALBUMIN 2.9 g/dL (3.0-4.8); ALT/SGPT 28 U/L (7-56); AST/SGOT 23 U/L (17-59); BLOOD UREA NITROGEN 14 mg/dL (7-21); CALCIUM 7.7 mg/dL (8.4-10.5); GFR NON-AFRICAN AMERICAN > 60
[2018-03-21] MEDS ORDERED: Potassium Chloride 20 mEq ER Tab PO STA (06:54)
[2018-03-21] MEDS: Lactated Ringer's 1,000 ML IV SCH (07:53)
--- NOTE | 2018-03-21 10:55 | PN ---
DATE: 03/21/2018 SUBJECTIVE: The patient is seen and examined at bedside. He appears to be comfortable. He is clearly hallucinating, but not agitated. He is confused, however, pleasantly so. Psychiatric consult is done and the patient discussed with Dr. Martinez. The patient is delirious. PHYSICAL EXAMINATION: VITAL SIGNS: Blood pressure 143/84, heart rate 78, oxygen saturation 98% on room air, respiratory rate 23, temperature 99.7. ENT: Head and neck atraumatic. LUNGS: Clear to auscultation bilaterally. HEART: Regular rate and rhythm. S1 and S2 normal. ABDOMEN: Soft, nontender and nondistended. MUSCULOSKELETAL: No C/C/E. NEURO: The patient moves all extremities spontaneously. SKIN: Moist. PSYCH: The patient is alert, awake; however, confused and disoriented. LABORATORY DATA: WBC 9.4, down from 13.6; hemoglobin 11.9; platelet count 163. Sodium 141, potassium 3 (supplemented), chloride 114, carbon dioxide 21, BUN 14, creatinine 1, glucose 113, AST 23, ALT 28, total bilirubin 0.6, lactic acid level 1.2. U-tox screen is negative for opiates, methadone, barbiturates, PCP, amphetamines, benzos, cocaine, cannabinoids. Salicylates less than 1, acetaminophen less than 10. Alcohol less than 10. CAT scan of the head is negative for acute intracranial pathology. Chest x-ray: No active pulmonary disease. EKG: No significant QTc prolongation and QRS is not widened. MEDICATIONS: Lovenox, Ativan p.r.n., Protonix IV b.i.d., normal saline 100 mL/hour (I will switch to lactated Ringer as the patient is hyperchloremic and his potassium is low while renal function appears to be acceptable). ASSESSMENT AND PLAN: This is 72 yo male with psych hx (depression and anxiety) who presented with ambien and remeron overdose. He was admitted to ICU yesterday out of concern for ability to protect airways. Currently, the patient is not agitated. He is protecting his airways. He is hemodynamically and respiratory laguna stable. He would need to continue one-to-one observation; however, that can be done on telemetry floor. No QTc or QRS prolongation on EKG. ph 7.34. 02sat 100 percent on NC. Will need optimization of sleep and circadian patterns, minimization of sleep interuption at night, frequent reorientation. Avoid benadryl, which may make his mental status worse due to its anti-cholinergic effects. We will continue with deep venous thrombosis, gastrointestinal prophylaxis. IV fluids. Ativan PRN may suffice for now (didnt require one since am). However, would avoid excess of benzodiazepines and opiates. Psychiatric followup. ccm time 40 min Ferddie Munguia MD MTDVanita
[2018-03-21] MEDS: Enoxaparin 40 mg Syringe SC SCH (11:13)
--- NOTE | 2018-03-21 11:17 | CP.PCM.PN ---
<Lalit Fox - Last Filed: 03/21/18 11:14> Subjective - Date & Time of Evaluation Date of Evaluation: 03/21/18 Time of Evaluation: 11:14 - Subjective Subjective: Patient has been disoriented and non compliant. Otherwise he is doing well. No BMs no bleeding reported. Objective - Vital Signs/Intake and Output Vital Signs (last 24 hours): Temp Pulse Resp BP Pulse Ox 99.7 F H 106 H 23 166/67 H 98 03/21/18 04:00 03/21/18 06:00 03/21/18 04:00 03/21/18 04:00 03/21/18 00:00 Intake and Output: 03/21/18 03/21/18 06:59 18:59 Intake Total 1000 Output Total 250 Balance 750 - Medications Medications: Current Medications Enoxaparin Sodium (Lovenox) 40 mg SC DAILY [facility]; Protocol Lactated Ringer's (Lactated Ringer's) 1,000 mls @ 100 mls/hr IV .Q10H [facility] Last Admin: 03/21/18 07:53 Dose: 100 mls/hr Lorazepam (Ativan) 2 mg IVP Q4H PRN; Protocol PRN Reason: Anxiety Last Admin: 03/21/18 03:59 Dose: 2 mg Pantoprazole Sodium (Protonix Inj) 40 mg IVP BID [facility] Last Admin: 03/20/18 17:24 Dose: 40 mg - Labs Labs: 03/21/18 05:00 03/21/18 05:00 PT 11.7 SECONDS (9.4-12.5) 03/20/18 06:35 INR 1.02 03/20/18 06:35 APTT 31.6 Seconds (25.1-36.5) 03/20/18 06:35 - Constitutional Appears: Well, Non-toxic, Confused - Head Exam Head Exam: NORMAL INSPECTION - ENT Exam ENT Exam: Normal Exam - Respiratory Exam Respiratory Exam: Clear to Ausculation Bilateral - Cardiovascular Exam Cardiovascular Exam: REGULAR RHYTHM, +S1, +S2 - GI/Abdominal Exam GI & Abdominal Exam: Soft, Normal Bowel Sounds - Extremities Exam Extremities Exam: Normal Inspection - Neurological Exam Neurological Exam: Altered, Awake - Psychiatric Exam Psychiatric exam: Normal Mood - Skin Skin Exam: Intact, Normal Color Assessment and Plan - Assessment and Plan (Free Text) Assessment: 72 year old male with past medical history of depression and anxiety who presents to [facility] from home after being found unresponsive likely secondary to ingestion of Zolpidem (Ambien) 5mg 14 tabs, Remeron 30mg 14 tabs, Remeron 45gm 30 tabs, Hydroxizine 25mg 30 tabs, Sennoside 30mg 7 tabs. Poison control has been contacted with recommendations for supportive care. Patient noted to have episode of coffee ground emesis in ED before transfer to ICU. Patient currently tachycardic and hypertensive Plan: Acute blood loss anemia due to GI bleed Coffee Ground Emesis Multiple pill ingestion Guaic positive stool in ED Tachycardia Hypertensive Depression Anxiety - No further reported episodes of coffee ground emesis, rectal exam with no blood on exam - Monitor H/H, transfuse for goal Hgb >7 - Continue PPI BID at this time - Supportive care for multiple pill ingestion as per ICU team and poison control - No plans for emergent endoscopy as patient appears stable, possible EGD Friday - Trial of full liquid diet - Further recommendations as per Dr. Cano <Ita Cano V - Last Filed: 03/22/18 21:08> Objective - Vital Signs/Intake and Output Vital Signs (last 24 hours): Temp Pulse Resp BP Pulse Ox 98.0 F 69 20 113/46 L 96 03/21/18 08:00 03/21/18 18:00 03/21/18 18:00 03/21/18 18:00 03/21/18 12:00 - Medications Medications: Current Medications Dorzolamide/Timolol (Cosopt 2%-0.5% Opht) 1 drop OU BID [facility] Enoxaparin Sodium (Lovenox) 40 mg SC DAILY [facility]; Protocol Last Admin: 03/21/18 11:13 Dose: 40 mg Lactated Ringer's (Lactated Ringer's) 1,000 mls @ 100 mls/hr IV .Q10H [facility] Last Admin: 03/21/18 07:53 Dose: 100 mls/hr Lorazepam (Ativan) 2 mg IVP Q4H PRN; Protocol PRN Reason: Anxiety Last Admin: 03/21/18 21:26 Dose: 2 mg Pantoprazole Sodium (Protonix Inj) 40 mg IVP BID [facility] Last Admin: 03/21/18 11:13 Dose: 40 mg Sennosides (Senokot Tab) 8.6 mg PO DAILY [facility] Last Admin: 03/21/18 21:26 Dose: 8.6 mg - Labs Labs: 03/21/18 05:00 03/21/18 05:00 PT 11.7 SECONDS (9.4-12.5) 03/20/18 06:35 INR 1.02 03/20/18 06:35 APTT 31.6 Seconds (25.1-36.5) 03/20/18 06:35 Attending/Attestation - Attestation I have personally seen and examined this patient.: Yes I have fully participated in the care of the patient.: Yes I have reviewed all pertinent clinical information, including history, physical exam and plan: Yes Notes (Text): This is a delayed addendum to GI progress report dictated by the GI Fellow.The patient was seen and examined earlier. Medical records, lab studies, imagings were reviewed. Last 24 hours events reviewed. Agreed with the above treatment plan as outlined in GI Fellow 's notes with the addition of the following No further episodes of vomiting HCT stable Continue PPI Abdomen soft Mild tenderness present Would request CT of the abdomen and pelvis 03/21/18 21:43
--- NOTE | 2018-03-21 11:45 | CP.CCUPN ---
<Gilda Vanegas - Last Filed: 03/21/18 12:12> CCU Subjective - Physician Review Subjective (Free Text): Gilda Vanegas, PGY-1, CCU Progress Note for Dr. Munguia Patient seen and examined at bedside. Overnight, patient was agitated and was given 2 doses of 1 mg ativan, which exacerbated the agitation. Patient was subsequently given benadryl which decreased the agitation. Patient is currently still in delirium. At bedside, patient is AAOx1, oriented to place but not to person or time. Patient however thinks he is on the 18th floor of this building. Patient has hallucinations and delusions. Per son at bedside, patient is generally AAOx3 and behaves appropriately and this is not the patient's baseline mental status. 12-ROS was unreviewable due to patient's mental status. CCU Objective - Vital Signs / Intake & Output Intake and Output (Last 8hrs): Intake & Output 03/20/18 03/21/18 03/21/18 22:59 06:59 14:59 Intake Total 600 1000 Output Total 200 250 Balance 400 750 Weight 131 lb 12.8 oz Intake: IV 600 1000 Right Antecubital 600 Right Hand 1000 Output: Urine 200 250 Condom 0 250 Straight 200 Other: # Bowel Movements 0 0 - Physical Exam Head: Positive for: Atraumatic, Normocephalic Pupils: Positive for: PERRL, Other (4mm pupils) Extroacular Muscles: Positive for: EOMI Conjunctiva: Positive for: Normal Mouth: Positive for: Moist Mucous Membranes Neck: Positive for: Normal Range of Motion Respiratory/Chest: Positive for: Clear to Auscultation Cardiovascular: Positive for: Normal S1, S2, Tachycardic Abdomen: Positive for: Normal Bowel Sounds. Negative for: Tenderness, Distention, Peritoneal Signs, Rebound, Guarding Back: Positive for: Normal Inspection Upper Extremity: Positive for: NORMAL PULSES, Other (Good reflexes, moves extremities to painful stimuli) Lower Extremity: Positive for: NORMAL PULSES, Other (Good reflexes, moves extremities to painful stimuli) Neurological: Positive for: GCS=15, CN II-XII Intact, Motor Func Grossly Intact, Normal Sensory Function Skin: Positive for: Warm, Dry, Normal Color. Negative for: Rashes Psychiatric: Positive for: Alert, Suicidal Ideation, Delusional, Hallucinations. Negative for: Oriented x 3 (AAOx1) - Medications Active Medications: Active Medications Generic Name Dose Route Start Last Admin Trade Name Freq PRN Reason Stop Dose Admin Enoxaparin Sodium 40 mg 03/21/18 10:00 03/21/18 11:13 Lovenox SC 40 mg DAILY RAMÍREZ Administration Protocol Lactated Ringer's 1,000 mls @ 100 mls/hr 03/21/18 08:00 03/21/18 07:53 Lactated Ringer's IV 100 mls/hr .Q10H RAMÍREZ Administration Lorazepam 2 mg 03/20/18 13:45 03/21/18 03:59 Ativan IVP 2 mg Q4H PRN Administration Anxiety Protocol Pantoprazole Sodium 40 mg 03/20/18 18:00 03/21/18 11:13 Protonix Inj IVP 40 mg BID RAMÍREZ Administration - Patient Studies Lab Studies: Lab Studies 03/21/18 03/21/18 03/20/18 Range/Units 05:00 05:00 16:30 WBC 9.4 D 13.6 H D (4.5-11.0) 10^3/ul RBC 4.13 4.45 (3.5-6.1) 10^6/uL Hgb 11.9 L 13.0 L (14.0-18.0) g/dL Hct 35.2 L 38.2 L (42.0-52.0) % MCV 85.2 85.8 (80.0-105.0) fl MCH 28.8 29.2 (25.0-35.0) pg MCHC 33.8 34.0 (31.0-37.0) g/dl RDW 15.6 H 15.5 H (11.5-14.5) % Plt Count 163 167 (120.0-450.0) 10^3/uL MPV 12.0 H 11.5 H (7.0-11.0) fl Gran % 87.3 H (50.0-68.0) % Lymph % (Auto) 6.0 L (22.0-35.0) % [place] % (Auto) 6.6 H (1.0-6.0) % Eos % (Auto) 0.0 L (1.5-5.0) % Baso % (Auto) 0.1 (0.0-3.0) % Gran # 8.19 H (1.4-6.5) Lymph # (Auto) 0.6 L (1.2-3.4) [place] # (Auto) 0.6 (0.1-0.6) Eos # (Auto) 0.0 (0.0-0.7) Baso # (Auto) 0.01 (0.0-2.0) K/mm3 Sodium 141 (132-148) mmol/L Potassium 3.0 L (3.6-5.0) mmol/L Chloride 114 H (98-107) mmol/L Carbon Dioxide 21 (21-33) mmol/L Anion Gap 10 (10-20) BUN 14 (7-21) mg/dL Creatinine 1.0 (0.8-1.5) mg/dl Est GFR ( Amer) > 60 Est GFR (Non-Af Amer) > 60 Random Glucose 113 H (70-110) mg/dL Calcium 7.7 L (8.4-10.5) mg/dL Phosphorus 2.0 L (2.5-4.5) mg/dL Magnesium 2.1 (1.7-2.2) mg/dL Total Bilirubin 0.6 (0.2-1.3) mg/dL AST 23 (17-59) U/L ALT 28 (7-56) U/L Alkaline Phosphatase 64 (38-126) U/L Total Protein 5.6 L (5.8-8.3) g/dL Albumin 2.9 L (3.0-4.8) g/dL Globulin 2.7 gm/dL Albumin/Globulin Ratio 1.1 (1.1-1.8) Blood Type Blood Type Confirm Antibody Screen Crossmatch BBK History Checked 03/20/18 03/20/18 03/20/18 Range/Units 16:30 13:00 12:23 WBC (4.5-11.0) 10^3/ul RBC (3.5-6.1) 10^6/uL Hgb (14.0-18.0) g/dL Hct (42.0-52.0) % MCV (80.0-105.0) fl MCH (25.0-35.0) pg MCHC (31.0-37.0) g/dl RDW (11.5-14.5) % Plt Count (120.0-450.0) 10^3/uL MPV (7.0-11.0) fl Gran % (50.0-68.0) % Lymph % (Auto) (22.0-35.0) % [place] % (Auto) (1.0-6.0) % Eos % (Auto) (1.5-5.0) % Baso % (Auto) (0.0-3.0) % Gran # (1.4-6.5) Lymph # (Auto) (1.2-3.4) [place] # (Auto) (0.1-0.6) Eos # (Auto) (0.0-0.7) Baso # (Auto) (0.0-2.0) K/mm3 Sodium 139 (132-148) mmol/L Potassium 3.5 L (3.6-5.0) mmol/L Chloride 112 H (98-107) mmol/L Carbon Dioxide 20 L (21-33) mmol/L Anion Gap 11 (10-20) BUN 13 (7-21) mg/dL Creatinine 0.8 (0.8-1.5) mg/dl Est GFR ( Amer) > 60 Est GFR (Non-Af Amer) > 60 Random Glucose 113 H (70-110) mg/dL Calcium 7.7 L (8.4-10.5) mg/dL Phosphorus 3.0 (2.5-4.5) mg/dL Magnesium 1.9 (1.7-2.2) mg/dL Total Bilirubin 0.7 (0.2-1.3) mg/dL AST 18 (17-59) U/L ALT 31 (7-56) U/L Alkaline Phosphatase 72 (38-126) U/L Total Protein 5.6 L (5.8-8.3) g/dL Albumin 3.0 (3.0-4.8) g/dL Globulin 2.6 gm/dL Albumin/Globulin Ratio 1.1 (1.1-1.8) Blood Type O NEGATIVE Blood Type Confirm O NEGATIVE Antibody Screen Negative Crossmatch See Detail BBK History Checked No verified bt Laboratory Results - last 24 hr 03/20/18 03/20/18 03/20/18 12:23 13:00 16:30 WBC RBC Hgb Hct MCV MCH MCHC RDW Plt Count MPV Gran % Lymph % (Auto) [place] % (Auto) Eos % (Auto) Baso % (Auto) Gran # Lymph # (Auto) [place] # (Auto) Eos # (Auto) Baso # (Auto) Sodium 139 Potassium 3.5 L Chloride 112 H Carbon Dioxide 20 L Anion Gap 11 BUN 13 Creatinine 0.8 Est GFR ( Amer) > 60 Est GFR (Non-Af Amer) > 60 Random Glucose 113 H Calcium 7.7 L Phosphorus 3.0 Magnesium 1.9 Total Bilirubin 0.7 AST 18 ALT 31 Alkaline Phosphatase 72 Total Protein 5.6 L Albumin 3.0 Globulin 2.6 Albumin/Globulin Ratio 1.1 Blood Type O NEGATIVE Blood Type Confirm O NEGATIVE Antibody Screen Negative Crossmatch See Detail BBK History Checked No verified bt 03/20/18 03/21/18 03/21/18 16:30 05:00 05:00 WBC 13.6 H D 9.4 D RBC 4.45 4.13 Hgb 13.0 L 11.9 L Hct 38.2 L 35.2 L MCV 85.8 85.2 MCH 29.2 28.8 MCHC 34.0 33.8 RDW 15.5 H 15.6 H Plt Count 167 163 MPV 11.5 H 12.0 H Gran % 87.3 H Lymph % (Auto) 6.0 L [place] % (Auto) 6.6 H Eos % (Auto) 0.0 L Baso % (Auto) 0.1 Gran # 8.19 H Lymph # (Auto) 0.6 L [place] # (Auto) 0.6 Eos # (Auto) 0.0 Baso # (Auto) 0.01 Sodium 141 Potassium 3.0 L Chloride 114 H Carbon Dioxide 21 Anion Gap 10 BUN 14 Creatinine 1.0 Est GFR ( Amer) > 60 Est GFR (Non-Af Amer) > 60 Random Glucose 113 H Calcium 7.7 L Phosphorus 2.0 L Magnesium 2.1 Total Bilirubin 0.6 AST 23 ALT 28 Alkaline Phosphatase 64 Total Protein 5.6 L Albumin 2.9 L Globulin 2.7 Albumin/Globulin Ratio 1.1 Blood Type Blood Type Confirm Antibody Screen Crossmatch BBK History Checked Fingerstick Blood Sugar Results: 98 Review of Systems - Review of Systems Systems not reviewed;Unavailable: Altered Mental Status Critical Care Progress Note - Ventilator Checklist Head of Bed 30 Degrees: Yes PUD Prophalyxis: Yes DVT Prophylaxis: Yes - Nutrition Nutrition: Nutrition Category Date Time Status Liquid Diet [DIET] Diets 03/21/18 Lunch Ordered Assessment/Plan - Assessment and Plan (Free Text) Assessment: 72 year old male with past medical history of anxiety and depression presents to [facility] from home after being found unresponsive likely secondary to ingestion of medications to harm himself. These medications include zolpidem, remeron, hydroxyzine, and sennosides. Plan: Neuro/Psych: -AAOx1, oriented to place but not time or person. No FND, moving extremities past midline. Patient has equal muscle strength bilaterally and throughout and reflexes are symmetrical. -Head CT: no acute intracranial findings. -Patient reportedly overdosed on zolpidem 5 mg 14 tablets, remeron 30 mg 14 tablets, remeron 45 mg 30 tablets, hydroxyzine 25 mg 30 tablets, and sennoside 30 mg 7 tablets in attempt to hurt himself -Overnight, patient was given 2 1 mg doses of ativan and 1 dose of IV benadryl. -Patient has had hallucinations and delusions this morning. As per son, patient's baseline mental status is AAOx3 with appropriate communication. -Psych, Dr. Nelson consulted for recommendations. -Patient currently on 1:1 -Monitor neuro status. If patient's neuro status does not improve, consider precedex drip. -Reorient patient as necessary. Cardio: -Tachycardia at HR: 106, regular rhythm, hypertensive at 166/67 with systolic blood pressure ranging from 130s to 160s, no signs of HD compromise -EKG: sinus tachycardia at heart rate of 106, QRS of 82, and QTc of 448. -Maintain MAP>65. -Monitor for S/S, HD compromise. Pulm: -No signs of respiratory distress. CTA B/L -Patient is stating well on room air. -Maintain O2 saturation>90%. -CXR: no acute findings -Elevate bed to 30 degrees GI: -Started on full liquid diet by GI -As per GI recs, no plans for endoscopy currently since patient only had one episode of coffee ground emesis in the ER and has not had recurrent episodes of emesis. -Protonix 40 mg BID /Nephro: -BUN/Cr stable at 14/1. -UA: negative protein, glucose, ketones, blood, nitrate, leukocyte esterase -Potassium: 3. Repleted with 2 20 mEq IV Kdur -Corrected calcium: 7.8. Repleted with calcium carbonate 600 mg once. -Patient currently on lactate ringer solution which has potassium and calcium in the fluid to help replete electrolytes. -Urine output at 450 mL -Continue monitoring. -Replete electrolytes as needed. -Maintain euvolemia. Endocrinology: -Random glucose: 113 -Maintain euglycemia. Heme/Onc: -H/H stable at 11.9 from 13. -Patient had one episode of coffee ground emesis. If Hgb drops more than 2 units in 24 hours or if Hgb is less than 7, will transfuse 1 U of PRBCs. 2 U of PRBCs are on standby. -No signs of HD compromise. -Continue monitoring H/H ID: -Afebrile, no leukocytosis -Monitor for signs and symptoms of infection. DVT prophylaxis: lovenox 40 mg daily GI prophylaxis: protonix 40 mg BID Patient seen and examined with Dr. Munguia - Date & Time Date: 03/21/18 Time: 11:46 <Freddie Munguia - Last Filed: 03/21/18 15:03> CCU Objective - Vital Signs / Intake & Output Vital Signs (Last 4 hours): Vital Signs Pulse Resp BP Pulse Ox 03/21/18 13:00 71 19 118/74 03/21/18 12:00 76 121/77 96 Intake and Output (Last 8hrs): Intake & Output 03/21/18 03/21/18 03/21/18 06:59 14:59 22:59 Intake Total 1000 Output Total 250 Balance 750 Weight 131 lb 12.8 oz Intake: IV 1000 Right Hand 1000 Output: Urine 250 Condom 250 Other: # Bowel Movements 0 - Medications Active Medications: Active Medications Generic Name Dose Route Start Last Admin Trade Name Freq PRN Reason Stop Dose Admin Enoxaparin Sodium 40 mg 03/21/18 10:00 03/21/18 11:13 Lovenox SC 40 mg DAILY RAMÍREZ Administration Protocol Lactated Ringer's 1,000 mls @ 100 mls/hr 03/21/18 08:00 03/21/18 07:53 Lactated Ringer's IV 100 mls/hr .Q10H RAMÍREZ Administration Lorazepam 2 mg 03/20/18 13:45 03/21/18 03:59 Ativan IVP 2 mg Q4H PRN Administration Anxiety Protocol Pantoprazole Sodium 40 mg 03/20/18 18:00 03/21/18 11:13 Protonix Inj IVP 40 mg BID RAMÍREZ Administration - Patient Studies Lab Studies: Lab Studies 03/21/18 03/21/18 03/20/18 Range/Units 05:00 05:00 16:30 WBC 9.4 D 13.6 H D (4.5-11.0) 10^3/ul RBC 4.13 4.45 (3.5-6.1) 10^6/uL Hgb 11.9 L 13.0 L (14.0-18.0) g/dL Hct 35.2 L 38.2 L (42.0-52.0) % MCV 85.2 85.8 (80.0-105.0) fl MCH 28.8 29.2 (25.0-35.0) pg MCHC 33.8 34.0 (31.0-37.0) g/dl RDW 15.6 H 15.5 H (11.5-14.5) % Plt Count 163 167 (120.0-450.0) 10^3/uL MPV 12.0 H 11.5 H (7.0-11.0) fl Gran % 87.3 H (50.0-68.0) % Lymph % (Auto) 6.0 L (22.0-35.0) % [place] % (Auto) 6.6 H (1.0-6.0) % Eos % (Auto) 0.0 L (1.5-5.0) % Baso % (Auto) 0.1 (0.0-3.0) % Gran # 8.19 H (1.4-6.5) Lymph # (Auto) 0.6 L (1.2-3.4) [place] # (Auto) 0.6 (0.1-0.6) Eos # (Auto) 0.0 (0.0-0.7) Baso # (Auto) 0.01 (0.0-2.0) K/mm3 Sodium 141 (132-148) mmol/L Potassium 3.0 L (3.6-5.0) mmol/L Chloride 114 H (98-107) mmol/L Carbon Dioxide 21 (21-33) mmol/L Anion Gap 10 (10-20) BUN 14 (7-21) mg/dL Creatinine 1.0 (0.8-1.5) mg/dl Est GFR ( Amer) > 60 Est GFR (Non-Af Amer) > 60 Random Glucose 113 H (70-110) mg/dL Calcium 7.7 L (8.4-10.5) mg/dL Phosphorus 2.0 L (2.5-4.5) mg/dL Magnesium 2.1 (1.7-2.2) mg/dL Total Bilirubin 0.6 (0.2-1.3) mg/dL AST 23 (17-59) U/L ALT 28 (7-56) U/L Alkaline Phosphatase 64 (38-126) U/L Total Protein 5.6 L (5.8-8.3) g/dL Albumin 2.9 L (3.0-4.8) g/dL Globulin 2.7 gm/dL Albumin/Globulin Ratio 1.1 (1.1-1.8) 03/20/ Range/Units 16:30 WBC (4.5-11.0) 10^3/ul RBC (3.5-6.1) 10^6/uL Hgb (14.0-18.0) g/dL Hct (42.0-52.0) % MCV (80.0-105.0) fl MCH (25.0-35.0) pg MCHC (31.0-37.0) g/dl RDW (11.5-14.5) % Plt Count (120.0-450.0) 10^3/uL MPV (7.0-11.0) fl Gran % (50.0-68.0) % Lymph % (Auto) (22.0-35.0) % [place] % (Auto) (1.0-6.0) % Eos % (Auto) (1.5-5.0) % Baso % (Auto) (0.0-3.0) % Gran # (1.4-6.5) Lymph # (Auto) (1.2-3.4) [place] # (Auto) (0.1-0.6) Eos # (Auto) (0.0-0.7) Baso # (Auto) (0.0-2.0) K/mm3 Sodium 139 (132-148) mmol/L Potassium 3.5 L (3.6-5.0) mmol/L Chloride 112 H (98-107) mmol/L Carbon Dioxide 20 L (21-33) mmol/L Anion Gap 11 (10-20) BUN 13 (7-21) mg/dL Creatinine 0.8 (0.8-1.5) mg/dl Est GFR ( Amer) > 60 Est GFR (Non-Af Amer) > 60 Random Glucose 113 H (70-110) mg/dL Calcium 7.7 L (8.4-10.5) mg/dL Phosphorus 3.0 (2.5-4.5) mg/dL Magnesium 1.9 (1.7-2.2) mg/dL Total Bilirubin 0.7 (0.2-1.3) mg/dL AST 18 (17-59) U/L ALT 31 (7-56) U/L Alkaline Phosphatase 72 (38-126) U/L Total Protein 5.6 L (5.8-8.3) g/dL Albumin 3.0 (3.0-4.8) g/dL Globulin 2.6 gm/dL Albumin/Globulin Ratio 1.1 (1.1-1.8) Laboratory Results - last 24 hr 03/20/18 03/20/18 03/21/18 16:30 16:30 05:00 WBC 13.6 H D 9.4 D RBC 4.45 4.13 Hgb 13.0 L 11.9 L Hct 38.2 L 35.2 L MCV 85.8 85.2 MCH 29.2 28.8 MCHC 34.0 33.8 RDW 15.5 H 15.6 H Plt Count 167 163 MPV 11.5 H 12.0 H Gran % 87.3 H Lymph % (Auto) 6.0 L [place] % (Auto) 6.6 H Eos % (Auto) 0.0 L Baso % (Auto) 0.1 Gran # 8.19 H Lymph # (Auto) 0.6 L [place] # (Auto) 0.6 Eos # (Auto) 0.0 Baso # (Auto) 0.01 Sodium 139 Potassium 3.5 L Chloride 112 H Carbon Dioxide 20 L Anion Gap 11 BUN 13 Creatinine 0.8 Est GFR ( Amer) > 60 Est GFR (Non-Af Amer) > 60 Random Glucose 113 H Calcium 7.7 L Phosphorus 3.0 Magnesium 1.9 Total Bilirubin 0.7 AST 18 ALT 31 Alkaline Phosphatase 72 Total Protein 5.6 L Albumin 3.0 Globulin 2.6 Albumin/Globulin Ratio 1.1 03/21/18 05:00 WBC RBC Hgb Hct MCV MCH MCHC RDW Plt Count MPV Gran % Lymph % (Auto) [place] % (Auto) Eos % (Auto) Baso % (Auto) Gran # Lymph # (Auto) [place] # (Auto) Eos # (Auto) Baso # (Auto) Sodium 141 Potassium 3.0 L Chloride 114 H Carbon Dioxide 21 Anion Gap 10 BUN 14 Creatinine 1.0 Est GFR ( Amer) > 60 Est GFR (Non-Af Amer) > 60 Random Glucose 113 H Calcium 7.7 L Phosphorus 2.0 L Magnesium 2.1 Total Bilirubin 0.6 AST 23 ALT 28 Alkaline Phosphatase 64 Total Protein 5.6 L Albumin 2.9 L Globulin 2.7 Albumin/Globulin Ratio 1.1 Critical Care Progress Note - Nutrition Nutrition: Nutrition Category Date Time Status Liquid Diet [DIET] Diets 03/21/18 Lunch Ordered Attending/Attestation - Attestation I have personally seen and examined this patient.: Yes I have fully participated in the care of the patient.: Yes I have reviewed all pertinent clinical information: Yes Notes (Text): 03/21/18 15:[address] Munguia note
--- NOTE | 2018-03-21 18:07 | CON ---
DATE OF CONSULTATION: 03/21/2018 HISTORY OF PRESENT ILLNESS: The patient is a 72-year-old white male with a history of depression, anxiety, PTSD, with one psychiatric hospitalization, at [facility], (recently admitted on 03/03/2018 through 03/17/2018), discharged on Remeron 30 mg at h.s. and Ambien 5 mg at h.s. who was found unresponsive at home likely secondary to overdose of medications Ambien, Remeron, hydroxizine and other tablets. However, overdose has not been verified by patient due to his sedation. I am familiar with the patient as I saw him on day of discharge on 03/17/2018. At that time, he was alert and oriented, reported that he looked forward to discharge, and organizing his various followup appointments. He was anxious, but generally well related, coherent, and strongly denied any thoughts of wanting to harm himself. The patient was considered to be stable for discharge. Thought process was coherent and there was reason to doubt his report at that time. I met with the patient at bedside this morning and it is very difficult to engage in a conversation with him. He does recall me from his day of discharge; however, his focus is poor, he often responds irrelevantly to my questioning, he is disoriented, forgetful and believes that we are currently at his home. I spent some time to reorient him however his focus and concentration are inconsistent. He is unable to tell me what happened that led to his current hospitalization. When I asked him if he had overdosed in order to commit suicide, he often responds irrelevantly. This is not patient's baseline and he is currently suffering from delirium. He does not appear to be hallucinating, but remains unpredictable due to his current disoriented mental status. Insight and judgement are poor. IMPRESSION: Delirium secondary to likely suicide attempt with overdose per ER assessment. The patient was also given a diagnosis of mood disorder, NOS, with the withdrawal from meds upon his discharge on 03/17/2018, which was approximately 4 days ago. Lab and vitals are reviewed. RELEVANT PSYCHIATRIC MEDICATIONS: The patient is only on Ativan 2 mg IV every 4 hours p.r.n. on the unit. PSYCHIATRIC HISTORY OF PRESENT ILLNESS: The patient was admitted to [facility] from 03/03/2016 to 03/17/2018 with a diagnosis of mood disorder, NOS, rule out PTSD and rule out withdrawals from medications. At that time, when he was admitted, it was because of depression and uncontrolled anxiety because he had missed two appointments with his psychiatrist and he ran short of his benzodiazepine and trazodone. He was not given a followup appointment with his psychiatrist until 01/2018, and due to these withdrawal symptoms from his psychiatric medication, his psychiatric symptoms worsened such that he had feelings of hopelessness and passive wishes at that time. When he was discharged from the psychiatric unit on 03/17/2018, he was discharged on a dose of Ambien 5 mg at h.s. or 2 tablets and Remeron 30 mg p.o. h.s. RECOMMENDATIONS: At this time, the patient has been unpredictable and the circumstances of his presentation could not be verified with patient though it is very likely secondary to an intentional overdose. Patient is unable to engage in a meaningful interview with this provider due to his disorientation in context of his delirium. This is not the patient's baseline. He requires One-to-One because he is unpredictable because of his delirium as well as possible suicide attempts prior to admission. If indeed he did try to commit suicide or took an impulsive overdose, he does require further psychiatric stabilization once his mental status/medical status improves. Psychiatry will continue to follow up with him. I will hold his standing psychiatric medications until his mental status improves, especially since he might have overdosed on them anyway. Next followup would be on 03/22/2018 and it will be with Dr. Guerra. Erich Guerra MD ISAIAS
[2018-03-21] MEDS ORDERED: Dorzolamide 2%/Timolol 0.5% 100 DROP/10 ML BOTTLE OU SCH (20:30)
[2018-03-22] MEDS: Lactated Ringer's 1,000 ML IV SCH (00:47)
--- NOTE | 2018-03-22 02:09 | HP ---
DATE OF EXAM: 03/21/2018 HISTORY OF PRESENT ILLNESS: Mr. Fermin is a 72-year-old male with history of anxiety, depression, PTSD, brought to the ED by EMS because of suspected overdose. He was found unresponsive at home with five empty pill bottles of Remeron, Ambien and hydroxyzine. The patient's son suspected that he was trying to harm himself. He was unresponsive in the ED, had a coffee-ground emesis. Since admission to the hospital, he is awake now, was transferred to the ICU. Poison control was contacted from the ED. Currently alert and oriented, sitting up in the bed, accepting oral feeds. Communicative. PAST MEDICAL HISTORY: Anxiety, depression and history of eye surgery in the past. FAMILY HISTORY: Noncontributory. PERSONAL HISTORY: Light smoker. No history of substance abuse. ALLERGIES: PENICILLIN. REVIEW OF SYSTEMS: Cannot be obtained. PHYSICAL EXAMINATION VITAL SIGNS: Temperature 98.5, heart rate 98 per minute, respiratory rate 18 per minute, blood pressure 155/90, pulse ox is 98% on room air. HEENT: Pallor positive. NECK: No lymphadenopathy. CHEST: Air entry present and equal, bilateral. No added sounds. CARDIOVASCULAR: S1, S2 normal. No murmur. No gallop. ABDOMEN: Soft, nontender. No hepatosplenomegaly. EXTREMITY: No edema. LABORATORY DATA: White count 7.7, hemoglobin 14.8, hematocrit 43.7, platelets 193. Sodium 142, potassium 4.1, BUN 16, creatinine 1, magnesium 2.5, bilirubin 0.6. Salicylate less than 1. Acetaminophen less than 10. Alcohol less than 10. Opiates negative and UA negative. ASSESSMENT: 1. Suspected multidrug overdose, Ambien and Remeron. 2. Gastrointestinal bleed, coffee-ground emesis once. 3. Possible suicide attempt. PLAN: He is admitted to the ICU. improved since admission yesterday and poison control informed one-to-one monitoring. Psych consultation ordered, evaluated by Dr. Guerra. Renal functions within normal limits. No electrolyte abnormalities, and blood counts stable. Continue IV fluid at 100 mL an hour. DVT prophylaxis with Lovenox and Protonix 40 mg IV b.i.d., Senokot 8.6 p.o. daily. We will monitor blood counts closely. Labs ordered for the morning. Currently, status is stable. Discussed with the son at bedside at length. Answered all his questions to the satisfaction. Discussed with the ICU resident. Katherine Santana MD
[2018-03-22 05:41] LABS: ALB/GLOB RATIO 1.1 (1.1-1.8); ALT/SGPT 27 U/L (7-56); AST/SGOT 29 U/L (17-59); BLOOD UREA NITROGEN 17 mg/dL (7-21); CALCIUM 8.4 mg/dL (8.4-10.5); GFR NON-AFRICAN AMERICAN 54
[2018-03-22 05:54] LABS: BASO # 0.02 K/mm3 (0.0-2.0); BASO % 0.2 % (0.0-3.0); EOS % 0.4 % (1.5-5.0); GRAN # 8.25 (1.4-6.5); GRAN % 84.1 % (50.0-68.0); HEMOGLOBIN 12.6 g/dL (14.0-18.0); LYMPH # 0.7 (1.2-3.4); LYMPH % 6.6 % (22.0-35.0); MEAN CELL VOLUME 85.6 fl (80.0-105.0); MEAN CORPUSCULAR HEMOGLOBIN 28.9 pg (25.0-35.0); MEAN CORPUSCULAR HGB CONC 33.8 g/dl (31.0-37.0); MEAN PLATELET VOLUME 12.7 fl (7.0-11.0); MONO # 0.9 (0.1-0.6); MONO % 8.7 % (1.0-6.0); RBC 4.36 10^6/uL (3.5-6.1); WHITE BLOOD COUNT 9.8 10^3/ul (4.5-11.0)
[2018-03-22] MEDS: Enoxaparin 40 mg Syringe SC SCH (10:50)
[2018-03-22] MEDS: Dorzolamide 2% Opht Sol 10ml OU SCH ×2 (10:50→18:30)
--- NOTE | 2018-03-22 11:35 | CP.PCM.PN ---
<Lalit Fox - Last Filed: 03/22/18 11:31> Subjective - Date & Time of Evaluation Date of Evaluation: 03/22/18 Time of Evaluation: 11:31 - Subjective Subjective: Delirium last night, now improved. Tolerating diet. No complaints. Objective - Vital Signs/Intake and Output Vital Signs (last 24 hours): Temp Pulse Resp BP Pulse Ox 98.0 F 88 22 120/66 96 03/21/18 08:00 03/22/18 07:00 03/22/18 07:00 03/22/18 04:00 03/21/18 12:00 Intake and Output: 03/22/18 03/22/18 06:59 18:59 Intake Total 1450 Output Total 600 Balance 850 - Medications Medications: Current Medications Dorzolamide HCl (Trusopt) [address] [facility] Last Admin: 03/22/18 10:50 Dose: 1 drop Enoxaparin Sodium (Lovenox) [address] [facility]; Protocol Last Admin: 03/22/18 10:50 Dose: 40 mg Haloperidol (Haldol) 0.5 mg PO Q6 PRN; Protocol PRN Reason: Agitation Lactated Ringer's (Lactated Ringer's) 1,000 mls @ 100 mls/hr IV .Q10H [facility] Last Admin: 03/22/18 00:47 Dose: 100 mls/hr Lorazepam (Ativan) 0.5 mg IVP Q6 PRN; Protocol PRN Reason: Agitation Pantoprazole Sodium (Protonix Inj) 40 mg IVP BID [facility] Last Admin: 03/22/18 10:50 Dose: 40 mg Quetiapine Fumarate (Seroquel) 12.5 mg PO AMHS [facility]; Protocol Sennosides (Senokot Tab) 8.[address] [facility] Last Admin: 03/22/18 10:50 Dose: 8.6 mg Timolol Maleate (Timoptic 0.5% Ophth Soln) 0 drop OU BID [facility] Last Admin: 03/22/18 10:51 Dose: 1 drop - Labs Labs: 03/22/18 05:00 03/22/18 05:00 PT 11.7 SECONDS (9.4-12.5) 03/20/18 06:35 INR 1.02 03/20/18 06:35 APTT 31.6 Seconds (25.1-36.5) 03/20/18 06:35 - Constitutional Appears: Non-toxic, No Acute Distress, Chronically Ill - Head Exam Head Exam: NORMAL INSPECTION - Eye Exam Eye Exam: Normal appearance - ENT Exam ENT Exam: Mucous Membranes Moist - Respiratory Exam Respiratory Exam: Clear to Ausculation Bilateral, NORMAL BREATHING PATTERN - Cardiovascular Exam Cardiovascular Exam: REGULAR RHYTHM, +S1, +S2 - GI/Abdominal Exam GI & Abdominal Exam: Soft, Normal Bowel Sounds. absent: Tenderness - Back Exam Back Exam: NORMAL INSPECTION - Neurological Exam Neurological Exam: Alert, Awake, Oriented x3 - Psychiatric Exam Psychiatric exam: Normal Affect, Normal Mood - Skin Skin Exam: Normal Color Assessment and Plan - Assessment and Plan (Free Text) Assessment: 72 year old male with past medical history of depression and anxiety who presents to [facility] ED from home after being found unresponsive likely secondary to ingestion of Zolpidem (Ambien) 5mg 14 tabs, Remeron 30mg 14 tabs, Remeron 45gm 30 tabs, Hydroxizine 25mg 30 tabs, Sennoside 30mg 7 tabs. Poison control has been contacted with recommendations for supportive care. Patient noted to have episode of coffee ground emesis in ED before transfer to ICU. Patient currently tachycardic and hypertensive Plan: Acute blood loss anemia due to GI bleed Coffee Ground Emesis Multiple pill ingestion Guaic positive stool in ED Tachycardia Hypertensive Depression Anxiety - No further reported episodes of coffee ground emesis, rectal exam with no blood on exam - Hb stable - Monitor H/H, transfuse for goal Hgb >7 - PPI PO daily - Supportive care for multiple pill ingestion as per ICU team and poison control - No plans for emergent endoscopy as patient appears stable, possible EGD Friday - full liquid diet - Further recommendations as per Dr. Cano <Ita Cano V - Last Filed: 03/22/18 21:06> Objective - Vital Signs/Intake and Output Vital Signs (last 24 hours): Temp Pulse Resp BP Pulse Ox 97.8 F 84 17 129/91 H 96 03/22/18 12:00 03/22/18 18:00 03/22/18 16:00 03/22/18 16:00 03/21/18 12:00 Intake and Output: 03/22/18 03/23/18 18:59 06:59 Intake Total 1480 Output Total 750 Balance 730 - Medications Medications: Current Medications Dorzolamide HCl (Trusopt) [address] [facility] Last Admin: 03/22/18 18:30 Dose: 1 drop Enoxaparin Sodium (Lovenox) [address] [facility]; Protocol Last Admin: 03/22/18 10:50 Dose: 40 mg Haloperidol (Haldol) 0.5 mg PO Q6 PRN; Protocol PRN Reason: Agitation Lactated Ringer's (Lactated Ringer's) 1,000 mls @ 100 mls/hr IV .Q10H [facility] Last Admin: 03/22/18 00:47 Dose: 100 mls/hr Lorazepam (Ativan) 0.5 mg IVP Q6 PRN; Protocol PRN Reason: Agitation Pantoprazole Sodium (Protonix Ec Tab) 40 mg PO 0600 [facility] Quetiapine Fumarate (Seroquel) 12.[address] [facility]; Protocol Sennosides (Senokot Tab) 8.[address] [facility] Last Admin: 03/22/18 10:50 Dose: 8.6 mg Timolol Maleate (Timoptic 0.5% Ophth Soln) [address] [facility] Last Admin: 03/22/18 18:30 Dose: 1 drop - Labs Labs: 03/22/18 05:00 03/22/18 05:00 PT 11.7 SECONDS (9.4-12.5) 03/20/18 06:35 INR 1.02 03/20/18 06:35 APTT 31.6 Seconds (25.1-36.5) 03/20/18 06:35 Attending/Attestation - Attestation I have personally seen and examined this patient.: Yes I have fully participated in the care of the patient.: Yes I have reviewed all pertinent clinical information, including history, physical exam and plan: Yes Notes (Text): This is a delayed addendum to GI progress report dictated by the GI Fellow.The patient was seen and examined earlier. Medical records, lab studies, imagings were reviewed. Last 24 hours events reviewed. Agreed with the above treatment plan as outlined in GI Fellow 's notes with the addition of the following No further episodes of coffee ground vomitous HCT stable Abdomen soft non-tender Discussed with the patient's son Will hold off EGD now 03/22/18 20:55
--- NOTE | 2018-03-22 16:19 | PN ---
DATE: 03/22/2018 FOLLOWUP NOTE SUBJECTIVE: He is comfortable in bed, in no acute distress. No events overnight. He was admitted with multiple drug orders, currently being followed by Psych also. REVIEW OF SYSTEMS: As per HPI. Rest of 12-point review of systems reviewed negative. MEDICATIONS: Lovenox 40 mg subcu daily, Haldol every 6 hours p.r.n. for agitation, IV fluid at 100 mL an hour, Protonix 40 mg daily, Seroquel 12.5 mg p.o. every bedtime, Senokot, timolol ophthalmic ointment. LABORATORY DATA: White count 9.8, hemoglobin 12.6, hematocrit 37.3, and platelets 159. Sodium 142, potassium 4.1. Creatinine 1.3. MRSA negative. ASSESSMENT AND PLAN: Anxiety and depression. Status post overdose of zolpidem, Remeron, hydroxyzine, and . Currently asymptomatic. Alert and oriented x3, agitated at times, followed by Dr. Godoy. Currently on one-to-one. We will continue that. Cardiovascular, hemodynamically stable. Pulmonary, no signs of respiratory distress. Chest x-ray no infiltrate. Gastrointestinal, stable. Renal functions within normal limits. Continue IV fluids. Hemoglobin and hematocrit stable. Hemoglobin declined to 11.5 from 13. Continue to monitor blood count. DVT prophylaxis with Lovenox 40 mg subcu daily, Protonix 40 mg b.i.d. to continue. Can be transferred to regular floor. Katherine Santana MD
--- NOTE | 2018-03-23 01:47 | CON ---
DATE: 03/22/2018 HISTORY OF PRESENT ILLNESS: The patient is a 72-year-old male with a history of depression, anxiety, PTSD with a history of one psychiatric admission, which occurred at [facility] from 03/03/2018 to 03/17/2018, was prescribed Remeron 30 mg h.s. and Ambien 5 mg h.s., who was admitted to CCU status post being found unresponsive at home, likely secondary to overdose of medications, including Ambien, Remeron, and hydroxyzine. I am familiar with the patient from his discharge on the unit on 03/17/2018 as well as my interview with him at bedside yesterday. I have reviewed recent labs and spoke with staff about the patient's progress. The patient remains on one-to-one for two main reasons. 1. He is clearly still delirious. The patient is unable to participate in any meaningful conversation with me, and he is not oriented to circumstances and has been demonstrating poor focus, disorganization, restlessness, and agitation. These symptoms are not indicative of his baseline behavior. 2. It does seem very likely that the patient took an overdose of his medications as a suicide attempt and in this regard, the patient might still be suicidal. As noted above, the patient remains unpredictable. He did not provide any meaningful responses to most of my questions, and he is actually less communicative today than yesterday. He also appears to be a little bit more confused and preoccupied during my meeting. Thought blocking does appear to be present, and he is also guarded. When I reviewed his current circumstances in HPI, he does appear to be listening; however, he is not responding to the things that I am saying. Medication was not restarted for the patient yesterday as he was calm and an overdose was suspected; however, at this time, it does appear p.r.n. medications still appear to be necessary due to the patient's recent agitation on the unit. As noted above, I reviewed CCU notes which indicated that Ativan appeared to be worsening the patient's agitation, and in general, would avoid high-dose benzos in this case. The patient's insight and judgment are obviously poor. VITAL SIGNS: Reviewed. RELEVANT PSYCHIATRIC MEDICATIONS: Include 2 mg IV every 4 hours p.r.n. IMPRESSION: First and foremost, the patient is suffering from delirium at this time. This is clearly not his baseline and I just saw the patient days ago and he was discharged, and he is generally coherent and can communicate very well in a goal-directed manner at baseline. The patient has a history of depression and anxiety, which may have contributed to his presentation at this time as well. PLAN: At this time, I would start Seroquel p.r.n. for agitation and confusion, and we will keep Ativan p.r.n. The patient will now take it p.o., I would provide Haldol IM with Ativan. Psychiatry will continue to follow up. The next follow up will be on 03/23/[address] Nelson. Please note, the patient absolutely requires one-to-one at this time. Erich Guerra MD
[2018-03-23] MEDS: Lactated Ringer's 1,000 ML IV SCH (02:01)
[2018-03-23] MEDS ORDERED: Pantoprazole 40 mg EC Tab PO SCH (06:00)
[2018-03-23 06:37] LABS: BASO # 0.02 K/mm3 (0.0-2.0); BASO % 0.2 % (0.0-3.0); EOS # 0.2 (0.0-0.7); EOS % 2.3 % (1.5-5.0); GRAN # 7.15 (1.4-6.5); HEMOGLOBIN 11.3 g/dL (14.0-18.0); LYMPH % 10.5 % (22.0-35.0); MEAN CELL VOLUME 85.2 fl (80.0-105.0); MEAN CORPUSCULAR HEMOGLOBIN 28.8 pg (25.0-35.0); MEAN CORPUSCULAR HGB CONC 33.7 g/dl (31.0-37.0); MEAN PLATELET VOLUME 12.4 fl (7.0-11.0); MONO # 0.9 (0.1-0.6); RBC 3.93 10^6/uL (3.5-6.1); WHITE BLOOD COUNT 9.3 10^3/ul (4.5-11.0)
[2018-03-23 06:42] VITALS: O2SAT 94
[2018-03-23 06:45] LABS: ALBUMIN 2.6 g/dL (3.0-4.8); ALT/SGPT 37 U/L (7-56); AST/SGOT 47 U/L (17-59); BLOOD UREA NITROGEN 20 mg/dL (7-21); CALCIUM 8.1 mg/dL (8.4-10.5); GFR NON-AFRICAN AMERICAN 54
--- NOTE | 2018-03-23 09:27 | CP.PCM.PN ---
Subjective - Date & Time of Evaluation Date of Evaluation: 03/23/18 Time of Evaluation: 09:24 - Subjective Subjective: Patient is doing well. No complaints. No reports of bleeding. Objective - Vital Signs/Intake and Output Vital Signs (last 24 hours): Temp Pulse Resp BP Pulse Ox 99.7 F H 80 18 136/70 94 L 03/23/18 06:00 03/23/18 06:00 03/23/18 06:00 03/23/18 06:00 03/23/18 06:00 Intake and Output: 03/23/18 03/23/18 06:59 18:59 Intake Total 2400 Output Total 375 Balance 2024 - Medications Medications: Current Medications Dorzolamide HCl (Trusopt) 0 ml OU BID [facility] Last Admin: 03/22/18 18:30 Dose: 1 drop Enoxaparin Sodium (Lovenox) 40 mg SC DAILY [facility]; Protocol Last Admin: 03/22/18 10:50 Dose: 40 mg Haloperidol (Haldol) 0.5 mg PO Q6 PRN; Protocol PRN Reason: Agitation Lactated Ringer's (Lactated Ringer's) 1,000 mls @ 100 mls/hr IV .Q10H [facility] Last Admin: 03/23/18 02:01 Dose: 100 mls/hr Lorazepam (Ativan) 0.5 mg IVP Q6 PRN; Protocol PRN Reason: Agitation Last Admin: 03/23/18 02:00 Dose: 0.5 mg Pantoprazole Sodium (Protonix Ec Tab) 40 mg PO 0600 [facility] Last Admin: 03/23/18 06:10 Dose: 40 mg Quetiapine Fumarate (Seroquel) 12.5 mg PO AMHS [facility]; Protocol Last Admin: 03/22/18 21:47 Dose: 12.5 mg Sennosides (Senokot Tab) 8.6 mg PO DAILY [facility] Last Admin: 03/22/18 10:50 Dose: 8.6 mg Timolol Maleate (Timoptic 0.5% Ophth Soln) 0 drop OU BID [facility] Last Admin: 03/22/18 18:30 Dose: 1 drop - Labs Labs: 03/23/18 05:50 03/23/18 05:50 PT 11.7 SECONDS (9.4-12.5) 03/20/18 06:35 INR 1.02 03/20/18 06:35 APTT 31.6 Seconds (25.1-36.5) 03/20/18 06:35 - Constitutional Appears: Well, Non-toxic - Head Exam Head Exam: NORMAL INSPECTION - Eye Exam Eye Exam: Normal appearance - Respiratory Exam Respiratory Exam: Clear to Ausculation Bilateral, NORMAL BREATHING PATTERN - Cardiovascular Exam Cardiovascular Exam: REGULAR RHYTHM, +S1, +S2 - GI/Abdominal Exam GI & Abdominal Exam: Soft, Normal Bowel Sounds. absent: Tenderness - Extremities Exam Extremities Exam: Normal Inspection - Neurological Exam Neurological Exam: Alert, Awake - Psychiatric Exam Psychiatric exam: Normal Affect, Normal Mood - Skin Skin Exam: Dry, Normal Color Assessment and Plan - Assessment and Plan (Free Text) Assessment: 72 year old male with past medical history of depression and anxiety who [place] [facility] [place] after being found unresponsive likely secondary to ingestion of Zolpidem (Ambien) 5mg 14 tabs, Remeron 30mg 14 tabs, Remeron 45gm 30 tabs, Hydroxizine 25mg 30 tabs, Sennoside 30mg 7 tabs. Poison control has been contacted with recommendations for supportive care. Patient noted to have episode of coffee ground emesis in ED before transfer to ICU. Patient currently tachycardic and hypertensive Plan: Acute blood loss anemia due to GI bleed Coffee Ground Emesis Multiple pill ingestion Guaic positive stool in ED Tachycardia Hypertensive Depression Anxiety - No further reported episodes of coffee ground emesis, rectal exam with no blood on exam - Hb stable - Monitor H/H, transfuse for goal Hgb >7 - PPI PO daily - Supportive care for multiple pill ingestion as per ICU team and poison control - After discussions with family, no plans for emergent endoscopy as patient appears stable - heart healthy diet - Further recommendations as per Dr. Cano
--- NOTE | 2018-03-23 10:09 | CP.PCM.PN ---
<Chito Cannon - Last Filed: 03/23/18 17:53> Subjective - Date & Time of Evaluation Date of Evaluation: 03/23/18 Time of Evaluation: 07:05 - Subjective Subjective: Chito Cannon PGY2 IM Progress Note for Dr. Sun Patient was seen and examined at bedside. He remains on 1:1 for his suicidal ideation until cleared by psych. GI is following for acute GI blood loss but recommending no emergent EGD at this time. Objective - Vital Signs/Intake and Output Vital Signs (last 24 hours): Temp Pulse Resp BP Pulse Ox 99.7 F H 80 18 136/70 94 L 03/23/18 06:00 03/23/18 06:00 03/23/18 06:00 03/23/18 06:00 03/23/18 06:00 Intake and Output: 03/23/18 03/23/18 06:59 18:59 Intake Total 2400 Output Total 375 Balance 2024 - Medications Medications: Current Medications Dorzolamide HCl (Trusopt) 0 ml OU BID [facility] Last Admin: 03/22/18 18:30 Dose: 1 drop Enoxaparin Sodium (Lovenox) 40 mg SC DAILY [facility]; Protocol Last Admin: 03/22/18 10:50 Dose: 40 mg Haloperidol (Haldol) 0.5 mg PO Q6 PRN; Protocol PRN Reason: Agitation Lactated Ringer's (Lactated Ringer's) 1,000 mls @ 100 mls/hr IV .Q10H [facility] Last Admin: 03/23/18 02:01 Dose: 100 mls/hr Lorazepam (Ativan) 0.5 mg IVP Q6 PRN; Protocol PRN Reason: Agitation Last Admin: 03/23/18 02:00 Dose: 0.5 mg Pantoprazole Sodium (Protonix Ec Tab) 40 mg PO 0600 [facility] Last Admin: 03/23/18 06:10 Dose: 40 mg Quetiapine Fumarate (Seroquel) 12.5 mg PO AMHS [facility]; Protocol Last Admin: 03/22/18 21:47 Dose: 12.5 mg Sennosides (Senokot Tab) 8.6 mg PO DAILY [facility] Last Admin: 03/22/18 10:50 Dose: 8.6 mg Timolol Maleate (Timoptic 0.5% Ophth Soln) 0 drop OU BID [facility] Last Admin: 03/22/18 18:30 Dose: 1 drop - Labs Labs: 03/23/18 05:50 03/23/18 05:50 PT 11.7 SECONDS (9.4-12.5) 03/20/18 06:35 INR 1.02 03/20/18 06:35 APTT 31.6 Seconds (25.1-36.5) 03/20/18 06:35 - Constitutional Appears: Well, Non-toxic, No Acute Distress - Head Exam Head Exam: NORMAL INSPECTION - Eye Exam Eye Exam: EOMI, Normal appearance, PERRL - ENT Exam ENT Exam: Mucous Membranes Moist - Neck Exam Neck Exam: Normal Inspection - Respiratory Exam Respiratory Exam: NORMAL BREATHING PATTERN. absent: Rales, Rhonchi, Wheezes, Respiratory Distress - Cardiovascular Exam Cardiovascular Exam: RRR, +S1, +S2 - GI/Abdominal Exam GI & Abdominal Exam: Soft, Normal Bowel Sounds. absent: Distended, Tenderness - Extremities Exam Extremities Exam: Full ROM - Neurological Exam Neurological Exam: Alert - Skin Skin Exam: Normal Color Assessment and Plan - Assessment and Plan (Free Text) Assessment: 72 yo AAM with a PMH of anxiety and depression admitted for overdose of Ambien, Remeron and Hydroxyzine. Poison control was contacted initially and recommend supportive care. Currently, the patient is doing better and awaiting psych clearance. - Pysch clearance before d/c 1:1 - dispo to psych unit vs home pending psych recs - cont Seroquel and Ativan PRN - No plans for endoscopy per GI; resume diet - cont GI and DVT ppx Case was reviewed and discussed with attending, Dr. Corinne Cannon PGY2 <Tal Sun S - Last Filed: 03/23/18 20:55> Objective - Vital Signs/Intake and Output Vital Signs (last 24 hours): Temp Pulse Resp BP Pulse Ox 99 F 71 19 128/70 94 L 03/23/18 12:00 03/23/18 14:00 03/23/18 12:00 03/23/18 12:00 03/23/18 06:00 Intake and Output: 03/23/18 03/24/18 18:59 06:59 Intake Total 720 Output Total 850 Balance -130 - Labs Labs: 03/23/18 05:50 03/23/18 05:50 PT 11.7 SECONDS (9.4-12.5) 03/20/18 06:35 INR 1.02 03/20/18 06:35 APTT 31.6 Seconds (25.1-36.5) 03/20/18 06:35 Assessment and Plan - Assessment and Plan (Free Text) Assessment: Pt seen and examined. I have reviewed the note of the medical dosimetrist and agree with it. I have discussed the assessment and plan with the resident. I have reviewed the patient's labs and medications. Pt was admitted for overdose. He was on 1:1 and that was discontinued by psych. He has 1 + edema in the LE. He was cleared for discharge and will f/u with PMD. Pt had overdosed on multiple meds. Pt does have a hxof anxiety.
[2018-03-23] MEDS: Enoxaparin 40 mg Syringe SC SCH (10:13)
[2018-03-23] MEDS ORDERED: POLYETHYLENE GLYCOL 3350 17 GM/Dose PACKET PO SCH (10:15)
[2018-03-23] MEDS: Dorzolamide 2% Opht Sol 10ml OU SCH (10:17)
--- NOTE | 2018-03-23 11:34 | PN ---
DATE: 03/23/2018 SUBJECTIVE: In short, the patient is 72-year-old male with reported history of PTSD. The patient had one prior psych hospitalization to this facility's Psychiatric Inpatient Unit less than a week ago. The patient was discharged from Psychiatric Inpatient Unit on 03/17/2018 where he was admitted for evaluation of possible dependence on benzodiazepines and medications readjustment. Please see previous note for more detailed information. This time, the patient was found unresponsive on the floor by his son with empty bottles of the medications and the patient's son brought the patient to the hospital. This typewriter assembler reviewed notes, also discussed with primary care physician, Dr. Sun. In the emergency room, collateral information were obtained from the patient's son. The patient's son expressed no concerns about intentional overdose on the medications. The patient never verbalized any thoughts of killing himself, never said that he wanted to end up his life and the patient does not have history of suicidal attempts in the past. Over the weekend, the patient was seen by psychiatrist, Dr. Guerra. Dr. Guerra initiated Seroquel 12.5 mg twice a day for possible delirium stage because the patient presented to be confused, at times agitated. The patient was on one-to-one for suicide precaution as well as delirium stage. The patient was not able to participate in meaningful conversation over the weekend, that is why, one-to-one was continued. The patient was seen today at the morning time. Discussed with the medical staff as well as Dr. Sun. The patient presented to be alert and oriented. The patient remembered this typewriter assembler. The patient does not remember the circumstances of his admission to the hospital this time. The patient said "I blacked out and I woke up in the hospital." The patient adamantly denied that he wanted to harm himself, seems to be surprised by this question. The patient adamantly denied feeling depressed at this moment. The patient denied thoughts of harming himself or others at this moment. The patient denied hallucinations. Denied confusion and the patient is aware about the treatment plan, about Endoscopy, about his inability to move his bowel. Of note, the patient suffers from constipation. The patient gave permission to talk to his son. This typewriter assembler attempted to speak to the son, Scooby Fermin Junior, phone number is [phone]. There is no option to leave a message. Going back to the patient's presentation, temperature today 99.7, pulse is 80, blood pressure is 136/70, respiration 18, oxygen saturation is 94. Medications reviewed. Lovenox, Trusopt, haloperidol 0.5 mg p.o. every 6 hours p.r.n. for agitation. There is nothing given to the patient. No Haldol was given to the patient. The patient is on Ativan 0.5 mg IV push every 6 hours p.r.n. for agitation and it was given at 02:00 a.m., Protonix, Seroquel 12.5 mg in morning and at bedtime. The patient got one dose the night before. The patient is on Senokot and timolol. Labs reviewed. Coagulation reviewed. Blood gas reviewed. Chemistry reviewed. Urinalysis reviewed. Toxicology reviewed. Serology reviewed. Microbiology reviewed. Reports reviewed. MENTAL STATUS EXAM: The patient presented to be alert, pleasant, cooperative, remember this typewriter assembler. The patient reported that he feels okay. Affect was reactive, mood congruent. Mood described as " I feel fine." Thought process seems to be coherent, goal directed, but concrete. Thought content, the patient denied visual, auditory, tactile hallucinations. Denied paranoid ideation. The patient denied thoughts of harming himself or others. Denied intent or plan. Insight and judgment seems to be improving. Impulses are well controlled. IMPRESSION: As per history, the patient had posttraumatic stress disorder as well as mood spectrum disorder, recent admission to the Psychiatric Inpatient Unit for medication adjustment. In regards to the medical issues, as per notes from the linen manager, the patient was in delirium stage and had hallucinations. The patient was tachycardic. PLAN: This typewriter assembler attempted to speak to the patient's son. This typewriter assembler does not believe that the patient wanted to end up his life and intentionally overdosed on medication. This typewriter assembler cannot exclude that the patient was delirious and did not know what he was doing. On top of that, at present moment, the patient presented very well. At the same time, this typewriter assembler would like to have conversation with the patient's son in order to find out what happened with the patient prior to coming to the hospital. Moreover, Ambien could be giving confusion at the nighttime and this typewriter assembler cannot exclude. Maybe, it was the case. This typewriter assembler will hold the Ambien right now and also Remeron. The patient does not want to sign himself into the Psychiatric Inpatient Unit as of now, but did not reject admission. Collaterals need to be obtained. We will follow up and advise accordingly. Should you have any questions, give me a call back. Thank you very much for letting me participate in the care of your patient. Jayne Nelson MD
[2018-03-23 12:01] VITALS: BP 128/70; RESP 19; TEMP 99
[2018-03-23 14:22] VITALS: PULSE 71
== END 2018-03-23 18:03 | disposition home or self-care (01) | DRG 918 ==
LOC: ED 06:27 → ERH 11:35 → CCU 12:38 → 2RNO 03-22 16:50
PROVIDERS: ADMIT Internal Medicine Nephrology; ATTEND Internal Medicine Nephrology
DX: T42.6X2A Poisoning by other antiepileptic and sedative-hypnotic drugs, intentional self-harm, initial encounter (principal); T47 Poisoning by, adverse effect of and underdosing of agents primarily affecting the gastrointestinal system; R45.851 Suicidal ideations; K92.2 Gastrointestinal hemorrhage, unspecified; R44.3 Hallucinations, unspecified; D62 Acute posthemorrhagic anemia; R00.0 Tachycardia, unspecified; F43.10 Post-traumatic stress disorder, unspecified; F32.9 Major depressive disorder, single episode, unspecified; E86.0 Dehydration; K59.00 Constipation, unspecified; F17.200 Nicotine dependence, unspecified, uncomplicated; Z91.19 Patient's noncompliance with other medical treatment and regimen; Y92.009 Unspecified place in unspecified non-institutional (private) residence as the place of occurrence of the external cause; Z88.0 Allergy status to penicillin

== ENCOUNTER 2018-03-26 11:02 | Emergency (ER) | payer MEDICARE, OTHER ==
[2018-03-26 11:02] VITALS: BMI 18.8
[2018-03-26 11:24] VITALS: RESP 18; TEMP 98.4
--- NOTE | 2018-03-26 11:24 | ED PDOC ---
Arrival/HPI - General Chief Complaint: Abdominal Pain Time Seen by Provider: 03/26/18 11:05 Historian: Patient, Family - History of Present Illness Narrative History of Present Illness (Text): 03/26/18 11:22 Patient is a 72 year old male whose past medical history includes anxiety, depression, possible PTSD, and chronic constipation, presents to the ED, accompanied by son, with complaints of lower abdominal discomfort and distension since midnight. Patient states, "soft ball" sensation in his lower abdomen and reports poor bowel movements for several days. Patient was recently in the ED for a psychiatric complaint and while in the hospital he experienced mild abdominal discomfort. However patient states that these symptoms are different than previously experienced. Patient denies using any pain medication for the presented symptoms. Patient denies any fever, chills, nausea, vomiting, diarrhea. Denies any chest pain and shortness of breath. Denies any hematochezia, or hematuria. Denies any abdominal surgery. PMD: Dr. Sun Time/Duration: 4-6 hours Symptom Course: Unchanged Quality: Aching Activities at Onset: Light Context: Home Past Medical History - Provider Review Nursing Documentation Reviewed: Yes - Infectious Disease Hx of Infectious Diseases: None - Cardiac Hx Cardiac Disorders: Yes Hx Hypertension: No - Pulmonary Hx Respiratory Disorders: No - Neurological Hx Neurological Disorder: No - HEENT Hx HEENT Disorder: Yes Hx Cataracts: (son uncertain) Hx Glaucoma: Yes (both eyes) Other/Comment: corneal implant left yey 30 or 40 years ago as per son, cloud over left eye - Renal Hx Renal Disorder: No - Endocrine/Metabolic Hx Endocrine Disorders: No - Hematological/Oncological Hx Blood Disorders: No - Integumentary Hx Dermatological Disorder: Yes Other/Comment: right arm skin tear covered with optifoam dressing, skin tear advertising display rotator to right palm, dry scab to left hand, small red dry round 0.2cm to 5th toe right foot, dry thick toenails, dry skin to toees,red scratch junior right ankle, small red spots to lle - Musculoskeletal/Rheumatological Hx Falls: Yes (found on floor today by son) - Gastrointestinal Hx Gastrointestinal Disorders: Yes (chronic constipation) - Genitourinary/Gynecological Hx Genitourinary Disorders: No - Psychiatric Hx Psychophysiologic Disorder: Yes Hx Anxiety: Yes Hx Depression: Yes Hx Substance Use: No Other/Comment: pt goes to [facility] [place] [facility] had appt yesterday a sper son - Surgical History Hx Eye Surgery: Yes - Anesthesia Hx Anesthesia: No Family/Social History - Physician Review Nursing Documentation Reviewed: Yes Family/Social History: Unknown Family HX Smoking Status: Former Smoker Hx Alcohol Use: No Hx Substance Use: No Allergies/Home Meds Allergies/Adverse Reactions: Allergies Penicillins Allergy (Verified 03/28/18 11:58) URTICARIA Home Medications: Home Meds Medication Instructions Recorded Confirmed Dorzolamide 2%/Timolol 0.5% 1 drop BOTHEYES BID 03/20/18 03/28/18 [Cosopt 2%-0.5% Opht] Review of Systems - Review of Systems Constitutional: absent: Fatigue, Fevers Eyes: absent: Vision Changes Respiratory: absent: SOB, Cough Cardiovascular: absent: Chest Pain Gastrointestinal: Abdominal Pain, Constipation. absent: Diarrhea, Nausea, Vomiting Genitourinary Male: Urinary Output Changes. absent: Hematuria Musculoskeletal: absent: Back Pain, Neck Pain Neurological: absent: Headache, Dizziness Endocrine: absent: Polyuria Psychiatric: absent: Anxiety, Depression Physical Exam - Physical Exam Narrative Physical Exam (Text): 03/26/18 11:35 Head: Atraumatic. Normocephalic. Eyes: PERRL. EOMI. Conjunctivae are not pale. ENT: Mucous membranes are moist and intact. Oropharynx is clear and symmetric. Neck: Supple. Full ROM. No JVD. No lymphadenopathy. No meningeal signs. Cardiovascular: Bradycardic. Systolic murmur. Pulmonary/Chest: No evidence of respiratory distress. Clear to auscultation bilaterally. No wheezing, rales or rhonchi. Abdominal: Soft and mildly distended. Diffuse tenderness. Suprapubic distension. No rebound, guarding, or rigidity. No organomegaly. Good bowel sounds. No incarcerated hernias noted. Rectal: no gross bleeding Back: No CVA tenderness. Extremities: No edema. No cyanosis. No clubbing. Full range of motion in all extremities. No calf tenderness. Skin: Skin is warm and dry. No petechiae. No purpura. Neurological: Alert, awake, and oriented. No facial droop. No slurred speech. Psychiatric: Good eye contact. Normal interaction, affect, and behavior. Currently denies suicidal ideation. Vital Signs Reviewed: Yes Vital Signs Temp Pulse Resp BP Pulse Ox 03/26/18 11:11 99 F 60 18 145/65 95 Temperature: Afebrile Blood Pressure: Normal Pulse: Regular Respiratory Rate: Normal Appearance: Positive for: Uncomfortable Pain Distress: Moderate Mental Status: Positive for: Alert and Oriented X 3 Medical Decision Making ED Course and Treatment: 03/26/18 11:50 Impression: 72 year old male who presents to the Ed with complaints of lower abdominal discomfort and distension. Differential Diagnosis included but are not limited to: Constipation Colitis Bowel Obstruction Plan: -- CT of Abdomen and Pelvis -- Labs -- EKG -- IV fluids -- UA -- Reassess and disposition Prior Visits: Notes and results from previous visits were reviewed. Progress Notes: Patient reports difficulty moving bowels, difficulty urinating. No fever. No vomiting. Abdomen distended and tender. NO chest pain or sob. CT ordered to eval abdominal pain, r/o obstruction. 03/26/18 16:17 Murillo catheter was placed. 2L clear uterine came out. Patient has complete relief of pain. Vital signs are stable. Patient is afebrile. Patient will be discharged with leg bag and antibiotics and follow up with urology. 03/26/18 17:43 Son mentions patient has had swollen right leg since discharge. On exam his right leg and right calf were more swollen than the left. There is no calf tenderness. Will obtain doppler US before discharge. 03/26/18 18:07 Preliminary US of lower extremity is negative for DVT. 03/30/18 14:06 - RAD Interpretation Narrative RAD Interpretations (Text): 03/26/18 13:30 CT of Abdomen and Pelvis reviewed by radiologist, shows: FINDINGS: LOWER THORAX: There is linear scarring in the right lower lobe. The visualized left lung is clear. LIVER: Normal in size with homogeneous enhancement. No ductal dilatation. There is a 3.9 by 2.9 cm multilocular cyst in the anterior inferior right hepatic lobe. Additionally there are tiny scattered low-attenuation lesions in the liver, too small to characterize by CT criteria. GALLBLADDER AND BILE DUCTS: Well distended. No calcified gallstones, wall thickening or pericholecystic fluid. PANCREAS: Normal in size with homogeneous enhancement. No gross lesion or ductal dilatation. SPLEEN: Normal in size and appearance. ADRENALS: The right adrenal gland is normal. There is a 1.5 x 1.0 cm heterogeneously enhancing nodule in the left adrenal gland. KIDNEYS AND URETERS: Normal in size with homogeneous enhancement. There are subcentimeter simple cysts in both kidneys no hydronephrosis. No solid mass. There is moderate bilateral hydronephrosis and mild diffuse dilatation of both ureters. VASCULATURE: There are advanced atherosclerotic aortoiliac calcifications and noncalcified mural plaque. No aortic aneurysm. BOWEL: Evaluation of the bowel is limited in the absence of oral contrast. The small bowel loops are normal in caliber. There is colonic diverticulosis without CT evidence for acute diverticulitis. No bowel wall thickening or obstruction. APPENDIX: Normal appendix. PERITONEUM: Small amount of free fluid in both lower quadrants of uncertain etiology and significance this. No free air. LYMPH NODES: No enlarged lymph nodes. BLADDER: Over distended and grossly normal in appearance without diverticulum or mass. REPRODUCTIVE: The prostate gland is normal in size. BONES: No acute fracture. Within normal limits for the patient's age. OTHER FINDINGS: None. IMPRESSION: 1. Over distended urinary bladder without evidence for diverticulum or mass. No evidence for cystitis. 2. Moderate bilateral hydronephrosis and mild diffuse dilatation of the ureters likely related to an over distended urinary bladder. 3. Colonic diverticulosis without CT evidence for acute diverticulitis. Program Evaluator: Radiologist - EKG Interpretation EKG Interpretation (Text): 03/26/18 13:03 EKG at 11:23 sinus bradycardia wtih short pr and occasional pvc, pac Interpreted by ED Physician: Yes Type: 12 lead EKG - Scribe Statement The provider has reviewed the documentation as recorded by the Lucy thomas with Latoyaaubree All medical record entries made by the Lucy were at my direction and person ally dictated by me. I have reviewed the chart and agree that the record accurately reflects my personal performance of the history, physical exam, medical decision making, and the department course for this patient. I have also personally directed, reviewed, and agree with the discharge instructions and disposition. Disposition/Present on Arrival - Present on Arrival Any Indicators Present on Arrival: Yes History of DVT/PE: No History of Uncontrolled Diabetes: No Urinary Catheter: Yes History of Decub. Ulcer: No History Surgical Site Infection Following: None - Disposition Have Diagnosis and Disposition been Completed?: Yes Diagnosis: Urinary retention Disposition: HOME/ ROUTINE Disposition Time: 16:30 Condition: GOOD Discharge Instructions (ExitCare): Urinary Retention (DC) Additional Instructions: For any fevers, any abdominal pain, any bloody urine or stool, any nausea or vomiting, any lightheadeness or dizziness, any persistent or worsening of any symptoms, get rechecked. Follow-up with your urologist in 1-2 days for reassessment. Return to ER for any new or worsening of any symptoms. Prescriptions: Ciprofloxacin HCl [Cipro] 500 mg PO BID #10 tab Referrals: César Romeo MD [Staff Provider] - Follow up with primary Forms: [employer] (Turkish)
[2018-03-26] MEDS ORDERED: Sodium Chloride 0.9% 1,000 ML IV SCH (11:30)
[2018-03-26 11:44] LABS: BASO # 0.02 K/mm3 (0.0-2.0); BASO % 0.2 % (0.0-3.0); EOS # 0.2 (0.0-0.7); EOS % 1.7 % (1.5-5.0); GRAN # 8.85 (1.4-6.5); HEMOGLOBIN 12.4 g/dL (14.0-18.0); LYMPH % 9.3 % (22.0-35.0); MEAN CELL VOLUME 84.6 fl (80.0-105.0); MEAN CORPUSCULAR HGB CONC 34.3 g/dl (31.0-37.0); MONO % 8.8 % (1.0-6.0); RBC 4.28 10^6/uL (3.5-6.1); RED CELL DISTRIBUTION WIDTH 15.2 % (11.5-14.5); WHITE BLOOD COUNT 11.1 10^3/ul (4.5-11.0)
[2018-03-26 11:55] LABS: ACETAMINOPHEN < 10.0 ug/ml (10.0-20.0); SALICYLATE < 1 mg/dL (2.0-20.0)
[2018-03-26 11:56] LABS: ALBUMIN 2.9 g/dL (3.0-4.8); ALT/SGPT 30 U/L (7-56); AST/SGOT 24 U/L (17-59); BLOOD UREA NITROGEN 11 mg/dL (7-21); CALCIUM 8.3 mg/dL (8.4-10.5); GFR NON-AFRICAN AMERICAN > 60; LIPASE 125 U/L (23-300)
[2018-03-26 11:57] LABS: INR 1.07; PARTIAL THROMBOPLASTIN TIME 29.8 Seconds (25.1-36.5); PROTHROMBIN TIME 12.3 SECONDS (9.4-12.5)
[2018-03-26] MEDS ORDERED: Iohexol 350 MG/100 ML VIAL ONE (12:22)
--- NOTE | 2018-03-26 13:25 | CT ---
Date of service: 03/26/2018 PROCEDURE: CT Abdomen and Pelvis with contrast HISTORY: diffuse abdominal pain COMPARISON: None. TECHNIQUE: CT scan of the abdomen and pelvis was performed after administration of intravenous contrast. Oral contrast was not administered. Coronal and sagittal reformatted images were obtained. Contrast dose: 100 mL Omnipaque 350 Radiation dose: Total exam DLP = 270.12 mGy-cm. This CT exam was performed using one or more of the following dose reduction techniques: Automated exposure control, adjustment of the mA and/or kV according to patient size, and/or use of iterative reconstruction technique. FINDINGS: LOWER THORAX: There is linear scarring in the right lower lobe. The visualized left lung is clear. LIVER: Normal in size with homogeneous enhancement. No ductal dilatation. There is a 3.9 by 2.9 cm multilocular cyst in the anterior inferior right hepatic lobe. Additionally there are tiny scattered low-attenuation lesions in the liver, too small to characterize by CT criteria. GALLBLADDER AND BILE DUCTS: Well distended. No calcified gallstones, wall thickening or pericholecystic fluid. PANCREAS: Normal in size with homogeneous enhancement. No gross lesion or ductal dilatation. SPLEEN: Normal in size and appearance. ADRENALS: The right adrenal gland is normal. There is a 1.5 x 1.0 cm heterogeneously enhancing nodule in the left adrenal gland. KIDNEYS AND URETERS: Normal in size with homogeneous enhancement. There are subcentimeter simple cysts in both kidneys no hydronephrosis. No solid mass. There is moderate bilateral hydronephrosis and mild diffuse dilatation of both ureters. VASCULATURE: There are advanced atherosclerotic aortoiliac calcifications and noncalcified mural plaque. No aortic aneurysm. BOWEL: Evaluation of the bowel is limited in the absence of oral contrast. The small bowel loops are normal in caliber. There is colonic diverticulosis without CT evidence for acute diverticulitis. No bowel wall thickening or obstruction. APPENDIX: Normal appendix. PERITONEUM: Small amount of free fluid in both lower quadrants of uncertain etiology and significance this. No free air. LYMPH NODES: No enlarged lymph nodes. BLADDER: Over distended and grossly normal in appearance without diverticulum or mass. REPRODUCTIVE: The prostate gland is normal in size. BONES: No acute fracture. Within normal limits for the patient's age. OTHER FINDINGS: None. IMPRESSION: 1. Over distended urinary bladder without evidence for diverticulum or mass. No evidence for cystitis. 2. Moderate bilateral hydronephrosis and mild diffuse dilatation of the ureters likely related to an over distended urinary bladder. 3. Colonic diverticulosis without CT evidence for acute diverticulitis.
[2018-03-26 13:37] LABS: URINE BILIRUBIN NEGATIVE (NEGATIVE); URINE BLOOD NEGATIVE (NEGATIVE); URINE GLUCOSE (UA) NEGATIVE (NEGATIVE); URINE LEUKOCYTE ESTERASE SMALL Leu/uL (NEGATIVE); URINE PROTEIN NEGATIVE mg/dL (<30 mg/dL); URINE UROBILINOGEN 0.2 E.U./dL (<1 E.U./dL)
[2018-03-26 13:39] LABS: URINE APPEARANCE CLEAR (CLEAR); URINE COLOR YELLOW (YELLOW)
[2018-03-26] MEDS ORDERED: Potassium Chloride 20 mEq ER Tab PO STA (13:40)
[2018-03-26 13:46] LABS: URINE BACTERIA TRACE (NEG); URINE RBC 0 - 2 /hpf (0-2)
[2018-03-26 15:19] VITALS: O2SAT 96
[2018-03-26 17:21] VITALS: BP 127/59; PULSE 58
--- NOTE | 2018-03-27 09:46 | US ---
PROCEDURE: Right lower extremity venous US HISTORY: Leg pain and swelling. Evaluate for DVT. PHYSICIAN(S): Marlon Whitaker M.D. TECHNIQUE: Duplex sonography and color-flow Doppler with graded compression were used to evaluate the deep venous system of the right lower extremity. FINDINGS: The visualized deep venous system of the right lower extremity is sonographically normal and compressible. Normal waveforms and augmentation are seen. There is no sonographic evidence for deep venous thrombosis in the visualized segments of the right lower extremity. IMPRESSION: 1. No sonographic evidence for deep venous thrombosis in the visualized segments of the right lower extremity.
--- NOTE | 2018-03-27 10:33 | CARD ---
APPROVED REPORT Date of service: 03/26/2018 EKG Measurement Heart [id number] <Conclusion> Marked sinus bradycardia with short LA APCs, new LVH by voltage
== END 2018-03-26 18:00 | disposition home or self-care (01) ==
LOC: ED 11:02
DX: R33.9 Retention of urine, unspecified (principal); F41.9 Anxiety disorder, unspecified
CPT/HCPCS: 74177; 80053; 81001; 82948; 83690; 83735; 85025; 85610; 85730; 87086; 87181; 93005; 93971; 99285; G0480; J7030; Q9967

== ENCOUNTER 2018-03-27 20:49 | Emergency (ER) | payer MEDICARE, OTHER ==
[2018-03-27 21:11] VITALS: BMI 19.5
--- NOTE | 2018-03-27 21:54 | ED PDOC ---
Arrival/HPI - General Chief Complaint: Male Genitourinary Time Seen by Provider: 03/27/18 21:17 Historian: Patient - History of Present Illness Narrative History of Present Illness (Text): 03/27/18 21:53 Scooby Fermin is a 72 year old male, whose past medical history includes anxiety, depression, glaucoma, and substance abuse, who presents to the Emergency department complaining of suprapubic abdominal distension and pain. Apolonia cordvoa was seen in the Emergency department yesterday for lower abdominal discomfort and distension. Patient had a Suero catheter placed, which drained 2L of urine and had CT Abdomen/Pelvis performed which showed over-distended bladder. Patient was discharged home and instructed to follow-up with urology but has been unable to get an appointment this week. Patient states pain returned today and notes urine has been draining slowly today. Patient had a normal bowel movement earlier today. Patient denies any nausea, vomiting, diarrhea, fever, chills, headache, dizziness, or any other complaints. Symptom Onset: Gradual Symptom Course: Unchanged Activities at Onset: Light Context: Home Past Medical History - Provider Review Nursing Documentation Reviewed: Yes - Infectious Disease Hx of Infectious Diseases: None - Cardiac Hx Cardiac Disorders: Yes Hx Hypertension: No - Pulmonary Hx Respiratory Disorders: No - Neurological Hx Neurological Disorder: No - HEENT Hx HEENT Disorder: Yes Hx Cataracts: (son uncertain) Hx Glaucoma: Yes (both eyes) Other/Comment: corneal implant left yey 30 or 40 years ago as per son, cloud over left eye - Renal Hx Renal Disorder: No - Endocrine/Metabolic Hx Endocrine Disorders: No - Hematological/Oncological Hx Blood Disorders: No - Integumentary Hx Dermatological Disorder: Yes Other/Comment: right arm skin tear covered with optifoam dressing, skin tear davide to right palm, dry scab to left hand, small red dry round 0.2cm to 5th toe right foot, dry thick toenails, dry skin to toees,red scratch junior right ankle, small red spots to lle - Musculoskeletal/Rheumatological Hx Falls: Yes (found on floor today by son) - Gastrointestinal Hx Gastrointestinal Disorders: Yes (chronic constipation) - Genitourinary/Gynecological Hx Genitourinary Disorders: No - Psychiatric Hx Psychophysiologic Disorder: Yes Hx Anxiety: Yes Hx Depression: Yes Hx Substance Use: No Other/Comment: pt goes to [facility] [place] [facility] had appt yesterday a sper son - Surgical History Hx Eye Surgery: Yes - Anesthesia Hx Anesthesia: No Family/Social History - Physician Review Nursing Documentation Reviewed: Yes Family/Social History: Unknown Family HX Smoking Status: Former Smoker Hx Alcohol Use: No Hx Substance Use: No Allergies/Home Meds Allergies/Adverse Reactions: Allergies Penicillins Allergy (Verified 03/27/18 21:11) URTICARIA Home Medications: Home Meds Medication Instructions Recorded Confirmed Dorzolamide 2%/Timolol 0.5% 1 drop BOTHEYES BID 03/20/18 03/27/18 [Cosopt 2%-0.5% Opht] Sennosides [Senna] 8.6 mg PO DAILY 03/20/18 03/27/18 Review of Systems - Physician Review All systems were reviewed & negative as marked: Yes - Review of Systems Constitutional: Normal. absent: Fevers Eyes: Normal ENT: Normal Respiratory: Normal. absent: SOB, Cough Cardiovascular: Normal Gastrointestinal: Abdominal Pain Musculoskeletal: Normal. absent: Back Pain Skin: Normal. absent: Rash Neurological: Normal. absent: Headache, Dizziness Endocrine: Normal Hemo/Lymphatic: Normal Psychiatric: Normal Physical Exam Vital Signs Reviewed: Yes Vital Signs Temp Pulse Resp BP Pulse Ox 03/27/18 21:11 98.5 F 84 16 140/77 95 Temperature: Afebrile Blood Pressure: Normal Pulse: Regular Respiratory Rate: Normal Appearance: Positive for: Well-Appearing, Non-Toxic, Comfortable Pain Distress: None Mental Status: Positive for: Alert and Oriented X 3 - Systems Exam Head: Present: Atraumatic, Normocephalic Pupils: Present: PERRL Extroacular Muscles: Present: EOMI Conjunctiva: Present: Normal Mouth: Present: Moist Mucous Membranes Neck: Present: Normal Range of Motion Respiratory/Chest: Present: Clear to Auscultation, Good Air Exchange. No: Respiratory Distress, Accessory Muscle Use Cardiovascular: Present: Regular Rate and Rhythm, Normal S1, S2. No: Murmurs Abdomen: Present: Distention (Suprapubic distension). No: Tenderness, Peritoneal Signs Back: Present: Normal Inspection Upper Extremity: Present: Normal Inspection. No: Cyanosis, Edema Lower Extremity: Present: Normal Inspection. No: Edema Neurological: Present: GCS=15, CN II-XII Intact, Speech Normal Skin: Present: Warm, Dry, Normal Color. No: Rashes Psychiatric: Present: Alert, Oriented x 3, Normal Insight, Normal Concentration Medical Decision Making ED Course and Treatment: 03/27/18 21:53 Impression: 72 year old male complaining of suprapubic distension and pain today. Plan: -- Suero Catheter Irrigation -- Reassess and disposition Prior Visits: Notes and results from previous visits were reviewed. Patient was seen in the Emergency department on 03/26/2018 for lower abdominal discomfort and distension. Patient had a Suero catheter placed, which drained 2L of urine and had CT Abdomen/Pelvis performed which showed over-distended bladder. Patient was discharged home and instructed to follow-up with urology Progress Notes: 03/27/18 22:19 RN irrigated suero catheter. Suero draining 2L of clear urine, no clots noted. Patient reports he feels better. - Scribe Statement The provider has reviewed the documentation as recorded by the Lucy Gonzalez Provider Scribe Attestation: All medical record entries made by the Scribe were at my direction and personally dictated by me. I have reviewed the chart and agree that the record accurately reflects my personal performance of the history, physical exam, medical decision making, and the department course for this patient. I have also personally directed, reviewed, and agree with the discharge instructions and disposition. Disposition/Present on Arrival - Present on Arrival Any Indicators Present on Arrival: No History of DVT/PE: No History of Uncontrolled Diabetes: No Urinary Catheter: No ([place] catheter put on in ed) History of Decub. Ulcer: No History Surgical Site Infection Following: None - Disposition Have Diagnosis and Disposition been Completed?: Yes Diagnosis: Urinary retention, Obstructed Suero catheter Disposition: HOME/ ROUTINE Disposition Time: 23:21 Patient Plan: Discharge Condition: GOOD Discharge Instructions (ExitCare): Urinary Retention (DC) Additional Instructions: Maintain suero catheter/leg bag/follow up with the urologist as scheduled/if any recurrent symptoms return to the emergency room Forms: [email or web address] (Kinyarwanda)
[2018-03-27 23:31] VITALS: BP 128/70; PULSE 72; RESP 18; TEMP 98.2; O2SAT 99
== END 2018-03-27 23:31 | disposition home or self-care (01) ==
LOC: ED 20:49
DX: R33.9 Retention of urine, unspecified (principal); T83.091A Other mechanical complication of indwelling urethral catheter, initial encounter; Y84.8 Other medical procedures as the cause of abnormal reaction of the patient, or of later complication, without mention of misadventure at the time of the procedure; Y92.89 Other specified places as the place of occurrence of the external cause

== ENCOUNTER 2018-03-28 11:50 | Emergency (ER) | payer MEDICARE ==
[2018-03-28 11:50] VITALS: BMI 19.5
--- NOTE | 2018-03-28 12:18 | ED PDOC ---
Arrival/HPI - General Chief Complaint: Male Genitourinary Time Seen by Provider: 03/28/18 11:53 Historian: Patient - History of Present Illness Narrative History of Present Illness (Text): 03/28/18 13:01 A 72 year old male, whose past medical history includes anxiety, depression, glaucoma, and substance abuse, presents to the emergency department complaining of blood in suero bag. Patient had catheter placed 2 days ago for acute urinary retention. He was started on Cipro which he states he is taking. He returned to the ED the next day for c/o clots in bag and underwent irrigation and was d/c'd home to f/u w/urology. He Patient reports throughout last night, he was frequently emptying out his suero bag and today he noticed a pinkish tinge of blood in his urine. He mentions also experiencing left-side lower back pain. Patient denies any clots in suero bag, fever, chills, nausea, vomiting, diarrhea, abdominal pain, or any other complaints at this time. 03/29/18 13:19 Past Medical History - Provider Review Nursing Documentation Reviewed: Yes - Infectious Disease Hx of Infectious Diseases: None - Cardiac Hx Cardiac Disorders: Yes - Pulmonary Hx Respiratory Disorders: No - Neurological Hx Neurological Disorder: No - HEENT Hx HEENT Disorder: Yes Hx Glaucoma: Yes Other/Comment: corneal implant left - Renal Hx Renal Disorder: No - Endocrine/Metabolic Hx Endocrine Disorders: No - Hematological/Oncological Hx Blood Disorders: No - Integumentary Hx Dermatological Disorder: Yes Other/Comment: right arm skin tear - Musculoskeletal/Rheumatological Hx Musculoskeletal Disorders: Yes Hx Falls: Yes - Gastrointestinal Hx Gastrointestinal Disorders: Yes Hx Constipation: Yes - Genitourinary/Gynecological Hx Genitourinary Disorders: Yes Other/Comment: RETENTION - Psychiatric Hx Psychophysiologic Disorder: Yes Hx Anxiety: Yes Hx Depression: Yes Hx Substance Use: No - Surgical History Hx Eye Surgery: Yes - Anesthesia Hx Anesthesia: No Family/Social History - Physician Review Nursing Documentation Reviewed: Yes Family/Social History: No Known Family HX Smoking Status: Former Smoker Hx Alcohol Use: No Hx Substance Use: No Allergies/Home Meds Allergies/Adverse Reactions: Allergies Penicillins Allergy (Verified 03/28/18 11:58) URTICARIA Home Medications: Home Meds Medication Instructions Recorded Confirmed RX: Dorzolamide 2%/Timolol 0.5% 1 drop BOTHEYES BID 03/20/18 03/28/18 [Cosopt 2%-0.5% Opht] Review of Systems - Physician Review All systems were reviewed & negative as marked: Yes - Review of Systems Constitutional: absent: Fevers, Night Sweats Gastrointestinal: absent: Abdominal Pain, Diarrhea, Nausea, Vomiting Physical Exam - Physical Exam Narrative Physical Exam (Text): PE: Gen: NAD, cooperative, well appearing, non-toxic. Head: NCAT. EYES: PERRL, EOMI, conjunctiva clear, no pallor or icterus. MOUTH: moist MM, posterior pharynx without erythema or exudate, uvula midline. CV: (+) S1S2, RRR, no M/G/R LUNGS: CTA B/L, No W/R/R, good air movement Abd: Soft, NTTP, no guarding, rebound or rigidity. No CVA tenderness. : Suero bag w/blood tinged urine in leg bag. MS: No back tenderness. Neuro: AAO x 3, GCS 15, CN 2-12 intact, motor and sensory grossly intact, 5/5 muscle strength B/L UE's and LE's. ext: no cyanosis or edema 03/29/18 13:23 Vital Signs Reviewed: Yes Vital Signs Temp Pulse Resp BP Pulse Ox 03/28/18 11:59 98.7 F 57 L 16 114/60 95 Temperature: Afebrile Blood Pressure: Normal Pulse: Regular Respiratory Rate: Normal Appearance: Positive for: Well-Appearing, Non-Toxic, Comfortable Pain Distress: None Mental Status: Positive for: Alert and Oriented X 3 Medical Decision Making ED Course and Treatment: 03/28/18 13:01 Impression: 72 year old male with blood in suero catheter and left-side lower back pain. Plan: -- CBC, BMP, coags. --Bladder irrigation -- Reassess and disposition Prior Visits: Notes and results from previous visits were reviewed. Patient was last seen in the emergency department on 03/27/2018 for suprapubic abdominal distension and pain. Patient had suero catheter irrigated, resulting in 2L of clear urine and no clots. Patient was discharged home to follow-up with urologist. Also, patient had also been seen here in the emergency department on 03/26/2018 for lower abdominal discomfort and distension. Patient had a Suero catheter placed, which drained 2L of urine and had CT Abdomen/Pelvis performed which showed over- distended bladder. Progress Notes: Pt agreeable w/POC. Upon reevaluation, after bladder irrigation of suero, urine is clear. no clots found. Waiting on labs. 03/28/18 15:47 Labs remarkable for K+ 3.2 which I supplemented w/K-dur 40 meq PO x1; mild anemia of 11.5 and normal renal function. Labs d/w patient. Case discussed with Dr. Kincaid, who suggests giving pt dose of Flomax, d/c catheter out for trial of voiding, reinsert suero if pt cannot void, d/c and have pt follow up with him. Pt informed of d/w Dr. Kincaid and is agreeable w/POC. 03/28/18 17:22 Pt reassesses after 1.5hrs. Pt drank 5 cups of water but still hasn't urinated. Pt starting to feel nauseated and bloated. Pt suero will be reinserted and pt will be d/c. 03/28/18 17:41 Suero reinserted, urine is clear. No blood found. Pt will be d/c. Pt stable for d/c home, is comfortable now w/o any nausea or sensation of bloating and is agreeable w/POC to f/u w/Dr. Fagan. - Scribe Statement The provider has reviewed the documentation as recorded by the Lucy Adhikari Provider Scribe Attestation: All medical record entries made by the Demetriusiblauren were at my direction and personally dictated by me. I have reviewed the chart and agree that the record accurately reflects my personal performance of the history, physical exam, medical decision making, and the department course for this patient. I have also personally directed, reviewed, and agree with the discharge instructions and disposition. Disposition/Present on Arrival - Present on Arrival Any Indicators Present on Arrival: No History of DVT/PE: No History of Uncontrolled Diabetes: No Urinary Catheter: No ([place] catheter put on in ed) History of Decub. Ulcer: No History Surgical Site Infection Following: None - Disposition Have Diagnosis and Disposition been Completed?: Yes Diagnosis: Urinary retention, Hematuria, Hypokalemia Disposition: HOME/ ROUTINE Disposition Time: 17:30 Patient Plan: Discharge Condition: STABLE Discharge Instructions (ExitCare): Hypokalemia (DC), Blood in the Urine (Hematuria), Adult (DC), Suero Catheter, Male, Urinary Retention (DC) Additional Instructions: LUX TENA, thank you for letting us take care of you today. Your provider was Kaye Zimmer MD and you were treated for BLOOD IN CATHETER. The emergency m edical care you received today was directed at your acute symptoms. If you were prescribed any medication, please fill it and take as directed. It may take several days for your symptoms to resolve. Return to the Emergency Department if your symptoms worsen, do not improve, or if you have any other problems. Please call one of the physicians/clinics you have been referred to that are listed on the Patient Visit Information form that is included in your discharge packet. Bring any paperwork you were given at discharge with you along with any medications you are taking to your follow up visit. Our treatment cannot replace ongoing medical care by a primary care provider outside of the emergency department. Thank you for allowing the [facility] team to be part of your care today. Referrals: Efrain Kincaid MD [Staff Provider] - 03/30/18 () Forms: [employer] ([place]akh)
[2018-03-28 13:30] LABS: BASO # 0.02 K/mm3 (0.0-2.0); BASO % 0.3 % (0.0-3.0); EOS # 0.2 (0.0-0.7); EOS % 3.6 % (1.5-5.0); GRAN # 4.14 (1.4-6.5); GRAN % 65.5 % (50.0-68.0); HEMOGLOBIN 11.5 g/dL (14.0-18.0); LYMPH # 1.1 (1.2-3.4); LYMPH % 17.5 % (22.0-35.0); MEAN CELL VOLUME 84.3 fl (80.0-105.0); MEAN CORPUSCULAR HEMOGLOBIN 29.2 pg (25.0-35.0); MEAN CORPUSCULAR HGB CONC 34.6 g/dl (31.0-37.0); MEAN PLATELET VOLUME 12.2 fl (7.0-11.0); MONO # 0.8 (0.1-0.6); MONO % 13.1 % (1.0-6.0); RBC 3.94 10^6/uL (3.5-6.1); RED CELL DISTRIBUTION WIDTH 15.1 % (11.5-14.5); WHITE BLOOD COUNT 6.3 10^3/uL (4.5-11.0)
[2018-03-28 13:39] LABS: INR 1.21; PROTHROMBIN TIME 13.8 SECONDS (9.4-12.5)
[2018-03-28 15:21] LABS: BLOOD UREA NITROGEN 12 mg/dL (7-21); CALCIUM 7.8 mg/dL (8.4-10.5); GFR NON-AFRICAN AMERICAN > 60
[2018-03-28] MEDS ORDERED: Potassium Chloride 20 mEq ER Tab PO STA (15:47)
[2018-03-28 17:46] VITALS: PULSE 88
[2018-03-28 17:47] VITALS: BP 132/79; RESP 80; TEMP 98; O2SAT 18
== END 2018-03-28 18:10 | disposition home or self-care (01) ==
LOC: ED 11:50
DX: E87.6 Hypokalemia (principal); R33.9 Retention of urine, unspecified; R31.9 Hematuria, unspecified

== ENCOUNTER 2018-04-01 12:49 | Emergency (ER) | payer MEDICARE ==
[2018-04-01 12:50] VITALS: BMI 19.5
== END 2018-04-01 13:19 | disposition left against medical advice (07) ==
LOC: ED 12:49
DX: Z02.89 Encounter for other administrative examinations (principal)